=== PATIENT | male | born 1935 | race Caucasian/White ===

== ENCOUNTER 2016-11-06 18:07 | Inpatient (IN) | payer MEDICARE, BC ==
[~2016-11-06 18:07] MED LIST: ISOVUE-370 76%-LOCM 1 ML ONE
[2016-11-06 18:45] LABS: #Basophils 0.1 thou/uL (0.0-0.2); #Eosinphils 0.1 thou/uL (0.0-0.7); #Lymphocytes 0.9 thou/uL (1.20-3.40); #Monocytes 0.4 thou/uL (0.11-0.59); #Neutrophils 3.1 thou/uL (1.40-6.50); %Basophils 1.1 % (0.0-1.0); %Eosinophils 2.8 % (0.0-10.0); %Lymphocytes 18.9 % (21.0-51.0); %Monocytes 9.7 % (0.0-10.0); Hematocrit 23.6 % (42.0-52.0); Red Blood Cell (RBC) Count 2.76 mill/uL (4.70-6.10); White Blood Cell (WBC) Count 4.6 thou/uL (4.8-10.8)
[2016-11-06 19:09] LABS: ALT (SGPT) 12 U/L (8-55); AST (SGOT) 15 U/L (5-34); Alkaline Phosphatase 77 U/L (40-150); Anion Gap 12 mmol/L (10-20); BUN (Urea Nitrogen) 24 mg/dL (8.4-25.7); Bilirubin, Total 0.3 mg/dL (0.2-1.2); Calc. Creatinine Clearance 0 mL/min (70-130); Calcium 9.1 mg/dL (7.8-10.44); Carbon Dioxide 25 mmol/L (23-31); Chloride 106 mmol/L (98-107); Estimated GFR-MDRD 56; Globulin 2.8 g/dL (2.4-3.5); Protein, Total 6.6 g/dL (5.8-8.1)
[2016-11-06 19:11] LABS: Troponin I Less than 0.010 ng/mL (< 0.028)
--- NOTE | 2016-11-06 20:21 | RAD ---
EXAM: ONE VIEW CHEST 11/06/16 COMPARISON: 05/05/16 HISTORY: Dyspnea and weakness. FINDINGS: Portable AP chest demonstrates sternotomy wires and hiatal hernia. Normal cardiac silhouette. Pulmon sandee vessels and hilum are normal. Costophrenic angles are clear. No masses or consolidation. No pneu mothorax or osseous abnormalities. IMPRESSION: 1. Stable hiatal hernia. 2. No acute cardiopulmonary process. POS: [facility]
--- NOTE | 2016-11-06 23:31 | PDOC.EVN ---
Event Note - Event Note Event Note: [id number] H&P DICTATED 1. Symptomatic anemia 2. H/O HTN 3. H/O Liver lesion 4. H/O CAD Plan: see orders
[2016-11-06] MEDS ORDERED: Ondansetron HCl/PF 4 MG/2 ML Vial IVP PRN (23:32)
[2016-11-06] MEDS ORDERED: HYDROcodone/Acetaminophen 7.5/325 mg Tablet PO PRN (23:32)
[2016-11-06] MEDS ORDERED: Acetaminophen 325 MG TAB PO PRN (23:32)
--- NOTE | 2016-11-07 00:19 | CT ---
EXAM: ABDOMEN CT WITH CONTRAST PELVIC CT WITH CONTRAST 11/06/16 HISTORY: Evaluate for liver lesion and hematoma. Weakness and shortness of breath times a couple of days. Yamila abdalla was admitted to hospital and put on antibiotics. Patient told of a spot on liver where a biopsy is scheduled on 11/16/16. COMPARISON: None. TECHNIQUE: Abdomen and pelvic CT are performed with intravenous contrast. Enteric contrast was not administered . Coronal reformatted image are submitted for interpretation. FINDINGS: ABDOMEN CT: Scarring and atelectasis in the lung bases. There is evidence of coronary calcifications. Heart size is normal. No significant pericardial fluid. The descending thoracic aorta and abdominal aorta have an overall normal caliber. No periaortic fat stranding. Symmetric attenuation of the psoas muscle. Intra and extrahepatic portal vein is patent. Spleen, pancreas and adrenal glands have appropriate enhancement. There is no evidence of an abnormal enhancing mass in the liver. No perihepatic fluid. The gallbladder is contracted due to the nonfasting state. There is an exophytic hyperdensity emanating from the posterior right renal cortex with attenuation coefficient of 14 Hounsfield units suggesting a 2.1 cm cyst. Bilaterally, no hydronephrosis, nephrol ithiasis or perinephric fat stranding. Bilateral ureters have a normal caliber. No hydroureter, donovan ureteral fat stranding or ureterolithiasis. No gastrohepatic, retrocrural or periportal lymphadenopa thy. No mesenteric mass, lymphadenopathy, free air, or free fluid. Limited evaluation of the alimentary canal due to lack of oral contrast. Moderate hiatal hernia is n oted. Multiple normal caliber small bowel loops. The ileocecal junction is normal. Fecalization of t he distal and terminal ileum likely due to incompetent ileocecal valve. No evidence of bowel obstruc tion. Appendix is not appreciated. No inflammation at the cecal apex. There is fecal material in a n ondistended, nondilated colon. PELVIC CT: Mild mucosal prominence of the urinary bladder likely due to inadequate distention. No pelvic mass, lymphadenopathy, free air or free fluid. There are no osteoblastic or osteolytic lesions. Vacuum disc phenomenon in multiple levels is noted. There is rightward curvature of the lumbar spine . IMPRESSION: 1. There are no abnormal enhancement in the liver. 2. Moderate hiatal hernia. POS: [facility]
[2016-11-07 01:17] VITALS: BMI 24.7
--- NOTE | 2016-11-07 07:06 | HP ---
DATE OF ADMISSION: 11/06/2016 CHIEF COMPLAINT: Fatigue and weakness. HISTORY OF PRESENT ILLNESS: The patient is 81 years old male with past medical history of hypertens ion, coronary artery disease, angina, hyperlipidemia, now came to the ER complaining of fatigue. Th e patient states for the past few weeks he is feeling fatigue for the last 1 week the fatigue got wo rse, he gets short of breath even with minimal exertion, complains of some chest pain that is interm ittent, but he has angina. Denies any fever, denies any chills, denies any nausea, denies any vomit ing. Complains of some lightheadedness also. Denies passing out. Today the symptoms got worse. B ecause of that he came to the ER. Denies any palpitations, denies any cough, denies any sputum prod uction. PAST MEDICAL HISTORY: As per HPI. PAST SURGICAL HISTORY: CABG. The patient has liver nodules, so he is currently being worked up, he scheduled for a biopsy in November. MEDICATIONS: Reviewed. FAMILY HISTORY: Denies any heart problems. REVIEW OF SYSTEMS: Constitutional: Denies any fever, denies any chills. Eyes: Denies any vision problems. Ears: Denies any hearing loss. Neck: Denies any neck pain. Cardiovascular system: Po sitive for chest pain. Respiratory system: Positive for dyspnea. Integumentary: Denies any rash. Musculoskeletal: Denies any joint deformities. Cranial nerve system: Denies syncope, denies lig htheadedness. Psychiatric: Denies depression or anxiety. All other review of systems are reviewed and are negative. PHYSICAL EXAMINATION: CONSTITUTIONAL/VITAL SIGNS: At the time of H and P performed, blood pressure is 140/76, afebrile, r espiratory rate 18, pulse ox 97%. GENERAL APPEARANCE: The patient appears tired. HEENT: Anterior naris patent. Hearing normal. Teeth intact. Tongue is moist. NECK: Supple. No JVD. CARDIOVASCULAR SYSTEM: S1, S2 present. Regular rate and rhythm, no murmurs, no rubs, no gallops. RESPIRATORY SYSTEM: No wheezes, no rhonchi. Breath sounds bilaterally. GASTROINTESTINAL: Abdomen is soft, nontender, no guarding, no organomegaly, no masses felt. MUSCULOSKELETAL: No edema. CRANIAL NERVE SYSTEM: Awake, follows commands. Strength intact, sensory intact. PSYCHIATRIC: Mood appropriate at this time. GENITOURINARY: No suprapubic tenderness. No angle tenderness. INTEGUMENTARY: No rashes seen. LABORATORY DATA: At the time of H and P performed, white count 4.6, hemoglobin 7.6, platelet count is 276. Sodium 139, potassium 4.4, chloride 106, CO2 of 25, BUN of 54, creatinine 1.24. Occult blo od is negative per ED physician. The patient's previous hemoglobin level was around 13.5 on 05/2016 . ASSESSMENT AND PLAN: The patient is 81 years old male. 1. Acute anemia, etiology unclear. We will go ahead and type and cross 1 unit of blood transfusion as the patient is currently having symptomatic anemia. We will monitor the patient closely. We wi ll check CBC in a.m. We will check iron studies also. 2. History of liver lesions, currently being worked up as an outpatient. We will go ahead and cons ult Hematology/Oncology to evaluate the patient. We will do CT abdomen and pelvis to evaluate the l esion. 3. History of hypertension. Continue blood pressure medications. 4. History of angina. Continue Ranexa. 5. History of hyperlipidemia. Continue statins. The case was discussed in detail with the patient. The patient is FULL CODE.
[2016-11-07 08:16] LABS: #Eosinphils 0.1 thou/uL (0.0-0.7); #Lymphocytes 0.8 thou/uL (1.20-3.40); #Monocytes 0.4 thou/uL (0.11-0.59); #Neutrophils 2.8 thou/uL (1.40-6.50); %Basophils 0.1 % (0.0-1.0); %Eosinophils 2.8 % (0.0-10.0); %Lymphocytes 19.2 % (21.0-51.0); %Monocytes 8.7 % (0.0-10.0); Hematocrit 24.8 % (42.0-52.0); Mean Platelet Volume 5.9 fL (7.4-10.4); Red Blood Cell (RBC) Count 2.87 mill/uL (4.70-6.10)
[2016-11-07 08:37] LABS: Anion Gap 8 mmol/L (10-20); BUN (Urea Nitrogen) 22 mg/dL (8.4-25.7); Calc. Creatinine Clearance 58 mL/min (70-130); Calcium 8.8 mg/dL (7.8-10.44); Carbon Dioxide 27 mmol/L (23-31); Chloride 107 mmol/L (98-107); Estimated GFR-MDRD 64
--- NOTE | 2016-11-07 10:38 | PDOC.PN ---
- Subjective Encounter Start Date: 11/07/16 Encounter Start Time: 10:34 Mr. Tipton is complaining of feeling tired and weak. He says the symptoms have been progressive of the past few months, with some minimal waxing and waning. He feels only slightly better since the transfusion. He also says he was recently hospitalized for several days due to what sounds like Fever of Unknown Origin. He says he saw Dr. Trevizo, and he ran " a bunch of tests" and these were negative. He was told he a small " spot on his liver". He sees Dr. Bowles, and the plan was for him to have a biopsy later this month. He also says he has had several Colonoscopies in the past which were negative. - Objective MAR Reviewed: Yes Vital Signs & Weight: Vital Signs (12 hours) Temp Pulse Pulse Resp BP BP Pulse Ox 11/07/16 08:50 97.7 F 82 16 11/07/16 07:25 97.7 F 82 16 151/70 H 97 11/07/16 06:04 97.8 F 77 16 159/82 H 95 11/07/16 02:45 97.8 F 79 16 141/85 H 95 11/07/16 02:19 97.9 F 93 16 126/72 96 11/07/16 01:00 97.8 F 89 16 97 11/07/16 00:00 97.8 F 89 18 141/77 H 97 Weight Weight 172 lb 6.4 oz I&O: 11/06/16 11/07/16 11/08/16 06:59 06:59 06:59 Intake Total 990 Output Total 380 Balance 610 Result Diagrams: 11/07/16 08:00 11/07/16 07:59 Phys Exam - Physical Examination HEENT: PERRLA Respiratory: no wheezing, no rales, no rhonchi, clear to auscultation bilateral Cardiovascular: RRR, no significant murmur, no rub Gastrointestinal: soft, non-tender, positive bowel sounds Musculoskeletal: no edema Dx/Plan (1) Normochromic anemia Code(s): D64.9 - ANEMIA, UNSPECIFIED Status: Acute (2) Generalized weakness Code(s): R53.1 - WEAKNESS Status: Acute (3) CAD (coronary artery disease) Code(s): I25.10 - ATHSCL HEART DISEASE OF [place] CORONARY ARTERY W/O ANG PCTRS Status: Chronic (4) Chronic low back pain Code(s): M54.5 - LOW BACK PAIN; G89.29 - OTHER CHRONIC PAIN Status: Chronic (5) Hypertension Code(s): I10 - ESSENTIAL (PRIMARY) HYPERTENSION Status: Chronic - Plan * Generalized fatigue- ? etiology- may be related to anemia * Normocytic Anemia- will check lab to help identify the cause, and await Hematology evaluation * He has a history of CAD- will therefore also check an Echo * HTN- blood pressure is stable.
[2016-11-07 10:45] LABS: IRF 0.581 Ratio (0.163-0.362); Reticulocyte Count 4.8 % (0.5-1.5)
[2016-11-07 11:00] LABS: Iron 48 ug/dL (65-175); LDH 152 U/L (125-220)
--- NOTE | 2016-11-07 17:57 | CON ---
DATE OF CONSULTATION: 11/07/2016 HISTORY OF PRESENT ILLNESS: The patient is an 81-year-old male patient of Dr. Bowles's who came into the hospital because of increasing shortness of breath and weakness. He denies any bleedi ng, denies any abdominal pain, denies any nausea, vomiting. Denies any melena or hematochezia. He has been iron deficient in the past and has undergone workup by Dr. Bowles in the past with no obvious etiology found. He has been on iron in the past, but has not been on iron over the last several mo nths. He was restarted on his iron approximately 3 days ago. He has also got unknown liver issue a nd was scheduled to undergo a liver biopsy on 11/16/2016. Patient denies any NSAID use. Denies any blood thinners. He has had 2 hospitalizations for fever and pancytopenia. The etiology of the fev er was never found. He has been seen and followed by Dr. Trevizo as well. He has had a fibrosis test , which showed an F3 level. PAST MEDICAL HISTORY: Includes coronary artery disease, hyperlipidemia, hypertension, history of my ocardial infarction, asthma. PAST SURGICAL HISTORY: Includes an appendectomy, cardiac catheterization, cataract surgery, upper a nd lower endoscopy, the last being in 05/2012, noted were gastric polyps or hiatal hernia, colon sadiq yp which was a tubular adenoma and diverticula, coronary artery bypass. ALLERGIES: Include CODEINE. SOCIAL HISTORY: He will uses alcohol rarely. Does not smoke. FAMILY HISTORY: Negative for GI or liver disease. REVIEW OF SYSTEMS: Constitutional: No fever or chills. No recent fever or chills. No weight loss . Eyes: No blurred vision, double vision. ENT: No sore throat or earaches. Cardiovascular: No chest pain or palpitations. Pulmonary: Positive for dyspnea on exertion. Negative for cough. Neg ative for wheezes. GI: See above. : No hematuria or dysuria. Musculoskeletal: Positive for g eneralized weakness. Negative for muscle pain or joint pain. Skin: No rashes. Neurologic: No nu mbness or seizure activity. PHYSICAL EXAMINATION: VITAL SIGNS: Temperature 97.8, pulse 94, respiratory rate 20, blood pressure 162/84. HEENT: Unremarkable. NECK: Supple. CHEST: Clear. CARDIOVASCULAR: Regular rate and rhythm. ABDOMEN: Soft, nontender, without organomegaly or masses. Bowel sounds present and normoactive. RECTAL: Deferred. EXTREMITIES: Normal. NEUROLOGIC: Nonfocal. LABORATORY DATA: Shows on admission, white blood cell count of 4.6, hemoglobin of 7.6, hematocrit o f 23.6, platelet count is 276, retic count is 4.8. Chemistry on admission were all normal. PSA was 7.67. IMAGING: Abdominal and pelvic CT were performed. This showed a moderate hiatal hernia and mild muc osal, prominence of the urinary bladder felt likely due to inadequate filling. ASSESSMENT: 1. Severe symptomatic iron deficiency anemia. 2. 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 3. History of colon polyps. 4. Hiatal hernia. 5. Coronary artery disease. 6. Hyperlipidemia. RECOMMENDATIONS: 1. EGD and colonoscopy. 2. May proceed with liver biopsy while the patient is here. 3. Transfuse.
[2016-11-07] MEDS ORDERED: GoLYTELY 4,000 ml Bottle PO SCH (18:00)
--- NOTE | 2016-11-07 19:58 | CON ---
DATE OF CONSULTATION: 11/07/2016 REASON FOR CONSULTATION: Anemia. HISTORY: This is an 81-year-old male who has been feeling fatigued for several months. Gini munoz was hospitalized for this symptoms on 11/06/2016 and found to be anemic, the reason for this consu ltation. He denies bleeding from any site. He also denies black stool before he has started on iro n tablets a few days ago. The patient did not have colonoscopy in the recent past. Looking into Ahead, the patient's hemoglobin was 11.5 grams on 05/09/2016. At that time, his MCV was 98.7 and platelet count was 108. WBC, at that time, was 3300, today his WBC is 4000, hemoglobi n 8 grams, and platelet count 216,000. MCV 86.2. Differential shows 69.3% neutrophils and 19.2% ly mphocytes. Retic count is 4.8%. The patient was hospitalized in May for fever. The culture stud ies were negative. No etiology of fever was found and he was treated empirically with antibiotics. During the past month, patient denies any fevers. He had lost some weight while he was in the hosp ital. More recently, he has been gaining weight. He denies any night sweats during the past 2-3 mo nths. The patient is also being investigated for abnormal liver texture on ultrasound. He was evaluated b eugenia Bowles who has scheduled a liver biopsy on 11/16/2016. PAST MEDICAL HISTORY: Positive for hypertension, coronary artery disease, angina, and dyslipidemia. PAST SURGICAL HISTORY: Include coronary artery bypass graft surgery. PERSONAL, FAMILY, AND SOCIAL HISTORY: The patient is single. He does not have any children. He li ves with a 16-year-old who is not related to him by blood. The patient takes care of him. REVIEW OF SYSTEMS: As above. He denies bone pain, unequal extremity weakness, headache, diplopia, depression, and lightheadedness. PHYSICAL EXAMINATION: GENERAL: The patient appears younger than his chronologic age of 81. He is alert and oriented. VITAL SIGNS: Temperature 97.3, pulse 74, respirations 16, blood pressure 144/92, oxygen saturation 95%. HEENT: Unremarkable. LYMPHATICS: There is no peripheral lymphadenopathy in cervical, supraclavicular, axillary, or ingui nal area. CHEST: Clear to percussion and auscultation. HEART: Regular rhythm. S1 and S2. ABDOMEN: Soft, without hepatosplenomegaly. Bowel sounds normal. There is no tenderness. EXTREMITIES: Without pedal edema. LABORATORY AND X-RAY FINDINGS: CBC as per history of present illness. Chemistry profile shows norm al electrolytes, BUN, and creatinine. Liver enzymes within normal limits. Total bilirubin of 0.3. Total protein is 6.6 with globulin of 2.8. Vitamin B12 of 351. The patient had a PSA in 2011 whic h was 5.7. One stool is negative for occult blood. Chest x-ray negative except for stable hiatal h ernia. CT scan of abdomen and pelvis with intravenous contrast is essentially negative. ASSESSMENT AND RECOMMENDATIONS: This patient has anemia of recent onset. His ferritin is 24.62 wit h low iron of 48 and TIBC of 390. LDH is not elevated at 152. The iron studies favor iron deficien cy. Low LDH and normal bilirubin will go against hemolysis. Additional stools should be tested for occult blood. I will also consult Gastroenterology for consideration of colonoscopy and upper taco rointestinal endoscopy to rule out gastrointestinal bleed. Because he had elevated PSA in the past, I have ordered another PSA. Liver biopsy will be done while he is in the hospital, although I doub t if outcome of liver biopsy will give us any clues about anemia. Thanks very much for asking me to participate in this patient's care.
[2016-11-08 05:14] LABS: #Eosinphils 0.1 thou/uL (0.0-0.7); #Lymphocytes 0.9 thou/uL (1.20-3.40); #Monocytes 0.5 thou/uL (0.11-0.59); #Neutrophils 2.9 thou/uL (1.40-6.50); %Basophils 0.2 % (0.0-1.0); %Eosinophils 3.2 % (0.0-10.0); %Lymphocytes 20.2 % (21.0-51.0); %Monocytes 10.8 % (0.0-10.0); Hematocrit 24.9 % (42.0-52.0); Red Blood Cell (RBC) Count 2.88 mill/uL (4.70-6.10); White Blood Cell (WBC) Count 4.5 thou/uL (4.8-10.8)
[2016-11-08] MEDS ORDERED: Propofol 200 MG/20 ML VIAL ONE (09:15)
[2016-11-08] MEDS ORDERED: Lidocaine 2% PF 10 ML AMP (For Epidural Use) ONE (09:15)
[2016-11-08] MEDS ORDERED: Promethazine HCl 25 MG/ML VIAL SLOW IVP PRN (09:44)
[2016-11-08] MEDS ORDERED: Ondansetron HCl/PF 4 MG/2 ML Vial IVP PRN (09:44)
[2016-11-08] MEDS ORDERED: Promethazine HCl 25 MG/ML VIAL IM PRN (09:44)
--- NOTE | 2016-11-08 09:58 | OP ---
DATE OF PROCEDURE: 11/08/2016 SURGEON: Harjit Tidwell M.D. PREOPERATIVE DIAGNOSIS: Iron deficiency anemia. PROCEDURE IN DETAIL: After informed consent was obtained, the patient was placed in the left latera l decubitus position. Anesthesia was administered per the Anesthesia Department. Forward-viewing e ndoscope was inserted into the esophagus under direct visualization with ease and passed to the seco nd portion of the duodenum with ease. The second portion of the duodenum was normal. Random biopsi es were taken from the second portion of the duodenum. In the duodenal bulb a 6 mm ulcer was noted with a clean white base. No active bleeding or visible vessel. The pylorus, antrum, body, fundus, and cardia were normal except for a large hiatal hernia. Within the hiatal hernia waste was Mohamud 's lesions. Biopsies were taken of this area. Retroflexion in the stomach was otherwise normal. T he esophagus was normal throughout. ASSESSMENT: 1. Large hiatal hernia with Mohamud's lesions - probable source of the patient's iron deficiency an emia. 2. Duodenal ulcer. 3. Otherwise normal esophagogastroduodenoscopy. RECOMMENDATION: 1. Await histopathology. 2. Proton-pump inhibitor. 3. Iron replacement therapy. 4. Proceed with liver biopsy tomorrow. 5. Proceed with colonoscopy. PROCEDURE: After informed consent was obtained, the patient was placed in the left lateral decubitu s position. Anesthesia was administered per the Anesthesia Department. Forward-viewing endoscope w as inserted into the rectum after perianal inspection and rectal exam were normal and passed to the cecum with ease. The cecum, ileocecal valve, and appendiceal orifice were normal. The prep was exc ellent. The ascending, transverse, descending, sigmoid and rectum were normal except for left-sided diverticulosis coli. Retroflexion in the rectum showed moderate internal hemorrhoids. ASSESSMENT: 1. Left-sided diverticulosis coli. 2. Moderate internal hemorrhoids. 3. Otherwise normal colonoscopy. RECOMMENDATIONS: No repeat colonoscopy secondary to age.
--- NOTE | 2016-11-08 14:49 | PDOC.PN ---
- Subjective Encounter Start Date: 11/08/16 Encounter Start Time: 14:46 Mr. Tipton does not have any complaints. - Objective MAR Reviewed: Yes Vital Signs & Weight: Vital Signs (12 hours) Temp Pulse Resp BP BP Pulse Ox 11/08/16 10:25 97.7 F 67 20 132/61 98 11/08/16 07:16 98.6 F 87 18 150/72 H 96 11/08/16 04:00 98.3 F 78 16 138/65 93 L Weight Weight 172 lb 6.4 oz I&O: 11/07/16 11/08/16 11/09/16 06:59 06:59 06:59 Intake Total 990 650 Output Total 380 Balance 610 650 Result Diagrams: 11/08/16 04:17 11/07/16 07:59 Phys Exam - Physical Examination HEENT: PERRLA Respiratory: no wheezing, no rales, no rhonchi, clear to auscultation bilateral Cardiovascular: RRR, no significant murmur Gastrointestinal: soft, non-tender, positive bowel sounds Musculoskeletal: no edema Dx/Plan (1) Normochromic anemia Code(s): D64.9 - ANEMIA, UNSPECIFIED Status: Acute (2) Generalized weakness Code(s): R53.1 - WEAKNESS Status: Acute (3) CAD (coronary artery disease) Code(s): I25.10 - ATHSCL HEART DISEASE OF [place] CORONARY ARTERY W/O ANG PCTRS Status: Chronic (4) Chronic low back pain Code(s): M54.5 - LOW BACK PAIN; G89.29 - OTHER CHRONIC PAIN Status: Chronic (5) Hypertension Code(s): I10 - ESSENTIAL (PRIMARY) HYPERTENSION Status: Chronic - Plan * Iron Deficiency Anemia- EGD and Colonoscopy results noted * Plan is for Liver Biopsy tomorrow * Will start iron therapy * PT/OT * CAD- stable- Echo results noted. * HTN- blood pressure is stable
[2016-11-08] MEDS: Ferrous Sulfate 325 MG TAB PO SCH (17:30)
[2016-11-09 07:06] LABS: PTT 29.9 SEC (22.9-36.1); Prothrombin Time 14.4 SEC (12.0-14.7)
[2016-11-09] MEDS ORDERED: Sodium Bicarbonate 2.4 MEQ/5 ML ONE (10:37)
[2016-11-09] MEDS ORDERED: Fentanyl 100 MCG/2 ML VIAL ONE (10:38)
[2016-11-09] MEDS ORDERED: Midazolam HCl 2 mg/2 ml Vial ONE (10:38)
[2016-11-09] MEDS ORDERED: Sodium Chloride 0.9% 30 ML ONE (10:59)
[2016-11-09] MEDS ORDERED: Lidocaine 1% PF 5 ML VIAL ONE (11:05)
--- NOTE | 2016-11-09 13:49 | ULT ---
ULTRASOUND GUIDED RANDOM RIGHT HEPATIC LOBE BIOPSY: Date: 11-09-16 History: Brant. Possible cirrhosis. Technique: The procedure, including risks and complications, were explained to the patient and informed consent was obtained. Patient was placed on the sonography table in supine position. Limited sonographic ev aluation of the liver was performed. An area in the mid axillary line, right upper quadrant, was mar ked and then meticulously prepped and draped in the usual sterile fashion. Conscious sedation was pe rformed with intravenous administration of Fentanyl and Versed. Skin and subcutaneous tissues were infiltrated with buffered 1% Lidocaine for local anesthesia at th e intended puncture site. Small skin incision was made. Utilizing concurrent real-time ultrasound gu idance, a 17 guide needle was advanced into the most peripheral aspect of the right hepatic lobe. Ut ilizing coaxial technique and concurrent real-time ultrasound guidance, a single 18 gauge core needl e biopsy specimen was obtained. Inter stylet was replaced. After approximately five minutes the inte r stylet was further advanced and the needle was removed. Hemostatis was achieved with direct pressu re for approximately 10 minutes. Post biopsy images demonstrate no perihepatic fluid collection or f indings to suggest a hematoma at site of biopsy. Patient tolerated the procedure well and without im mediate complication. Patient was transported to his hospital room in stable condition. IMPRESSION: Technically successful ultrasound guided random right hepatic lobe biopsy. A single 18 gauge core ne edle biopsy specimen was obtained. Pathology is pending. POS: [facility]
--- NOTE | 2016-11-09 14:30 | PRG ---
DATE OF SERVICE: 11/09/2016 SUBJECTIVE: The patient is feeling well, he has had a liver biopsy today. OBJECTIVE: VITAL SIGNS: Temperature 98.1, pulse 87, respiratory rate 18, blood pressure 129/74. CHEST: Clear. CARDIOVASCULAR: Regular rate and rhythm. ABDOMEN: Benign. LABORATORY DATA: Shows hemoglobin 8.1, hematocrit 24.9. Chemistries show a PSA 7.76. ASSESSMENT: 1. Iron deficiency anemia secondary to hiatal hernia and Mohamud's lesions. 2. Duodenal ulcer. 3. Left-sided diverticulosis coli. 4. Internal hemorrhoids. 5. Possible cirrhosis. RECOMMENDATIONS: 1. Await liver biopsy results. 2. Await histopathology. 3. Iron replacement therapy. 4. Stable from GI standpoint for discharge.
--- NOTE | 2016-11-09 14:33 | PDOC.PN ---
- Subjective Encounter Start Date: 11/09/16 Encounter Start Time: 14:29 Mr. Tipton complains of not feeling much better today than when he first came in. He still feels weak. - Objective MAR Reviewed: Yes Vital Signs & Weight: Vital Signs (12 hours) Temp Pulse Resp BP BP BP Pulse Ox 11/09/16 13:24 98.1 F 87 18 129/74 94 L 11/09/16 12:00 98.3 F 82 18 93 L 11/09/16 11:50 98.3 F 76 16 156/78 H 93 L 11/09/16 08:00 98.3 F 82 18 152/93 H 95 11/09/16 03:58 97.7 F 87 20 160/93 H 92 L I&O: 11/08/16 11/09/16 11/10/16 06:59 06:59 06:59 Intake Total 450 Balance 450 Result Diagrams: 11/08/16 04:17 11/07/16 07:59 Phys Exam - Physical Examination HEENT: PERRLA Respiratory: no wheezing, no rales, no rhonchi, clear to auscultation bilateral Cardiovascular: RRR, no significant murmur Gastrointestinal: soft, non-tender, positive bowel sounds Musculoskeletal: no edema Dx/Plan (1) Normochromic anemia Code(s): D64.9 - ANEMIA, UNSPECIFIED Status: Acute (2) Generalized weakness Code(s): R53.1 - WEAKNESS Status: Acute (3) CAD (coronary artery disease) Code(s): I25.10 - ATHSCL HEART DISEASE OF [place] CORONARY ARTERY W/O ANG PCTRS Status: Chronic (4) Chronic low back pain Code(s): M54.5 - LOW BACK PAIN; G89.29 - OTHER CHRONIC PAIN Status: Chronic (5) Hypertension Code(s): I10 - ESSENTIAL (PRIMARY) HYPERTENSION Status: Chronic - Plan * Iron Deficiency Anemia- discussed with Dr. Martínez- will give an IV infusion of iron. There is some concern that the anemia may be due to more than just iron deficiency. He will likely need continued outpatient Hematology follow-up * I offer PT- and Rehab, but the patient says this doesn't work for him, due to his back problems- will therefore cancel PT consult * HTN- blood pressure is variable, but otherwise ok * CAD- stable * Hopefully home tomorrow .
[2016-11-09] MEDS: Ferrous Sulfate 325 MG TAB PO SCH ×2 (15:37→16:02)
[2016-11-10 05:40] LABS: #Eosinphils 0.1 thou/uL (0.0-0.7); #Lymphocytes 0.7 thou/uL (1.20-3.40); #Monocytes 0.5 thou/uL (0.11-0.59); %Basophils 0.4 % (0.0-1.0); %Eosinophils 2.4 % (0.0-10.0); %Lymphocytes 17.1 % (21.0-51.0); %Monocytes 10.4 % (0.0-10.0); Hematocrit 27.5 % (42.0-52.0); Red Blood Cell (RBC) Count 3.14 mill/uL (4.70-6.10); White Blood Cell (WBC) Count 4.3 thou/uL (4.8-10.8)
[2016-11-10] MEDS: Ferrous Sulfate 325 MG TAB PO SCH (08:29)
--- NOTE | 2016-11-10 10:01 | PDOC.PN ---
- Subjective Encounter Start Date: 11/10/16 Encounter Start Time: 07:45 -: old records requested/rev Patient seen and examined. No new complaints. No overnight events - Objective MAR Reviewed: Yes Vital Signs & Weight: Vital Signs (12 hours) Temp Pulse Resp BP Pulse Ox 11/10/16 04:00 98.3 F 84 12 128/68 96 11/10/16 00:00 98.1 F 82 16 128/61 95 I&O: 11/09/16 11/10/16 11/11/16 06:59 06:59 06:59 Intake Total 450 600 Balance 450 600 Result Diagrams: 11/10/16 05:03 11/07/16 07:59 Phys Exam - Physical Examination Constitutional: NAD HEENT: PERRLA, moist MMs, sclera anicteric Neck: no JVD, supple Respiratory: no wheezing, no rales, no rhonchi Cardiovascular: RRR, no significant murmur, no rub Gastrointestinal: soft, non-tender, no distention Musculoskeletal: no edema, pulses present Neurological: non-focal, normal sensation, moves all 4 limbs Psychiatric: normal affect, A&O x 3 Skin: no rash, normal turgor Dx/Plan (1) Generalized weakness Code(s): R53.1 - WEAKNESS Status: Acute (2) Normochromic anemia Code(s): D64.9 - ANEMIA, UNSPECIFIED Status: Acute (3) CAD (coronary artery disease) Code(s): I25.10 - ATHSCL HEART DISEASE OF [place] CORONARY ARTERY W/O ANG PCTRS Status: Chronic (4) Chronic low back pain Code(s): M54.5 - LOW BACK PAIN; G89.29 - OTHER CHRONIC PAIN Status: Chronic (5) Dyslipidemia Code(s): E78.5 - HYPERLIPIDEMIA, UNSPECIFIED Status: Chronic (6) Hypertension Code(s): I10 - ESSENTIAL (PRIMARY) HYPERTENSION Status: Chronic - Plan cont current plan of care * medication reviewed as below * symptomatic treatment * see discharge summery * protonix and feso4 on discharge * follow up with GI and hematology. Review of Systems - Review of Systems ENT: negative: Ear Pain, Ear Discharge, Nose Pain, Nose Discharge, Nose Congestion, Mouth Pain, Mouth Swelling, Throat Pain, Throat Swelling, Other Respiratory: negative: Cough, Dry, Shortness of Breath, Hemoptysis, SOB with Excertion, Pleuritic Pain, Sputum, Wheezing Cardiovascular: negative: Chest Pain, Palpitations, Orthopnea, Paroxysmal Noc. Dyspnea, Edema, Light Headedness, Other Gastrointestinal: negative: Nausea, Vomiting, Abdominal Pain, Diarrhea, Constipation, Melena, Hematochezia, Other Genitourinary: negative: Dysuria, Frequency, Incontinence, Hematuria, Retention , Other Musculoskeletal: negative: Neck Pain, Shoulder Pain, Arm Pain, Back Pain, Hand Pain, Leg Pain, Foot Pain, Other - Medications/Allergies Allergies/Adverse Reactions: Allergies Allergy/AdvReac Type Severity Reaction Status Date / Time codeine Allergy "makes me Verified 11/07/16 01:14 feel weird in my temples" Medications: Current Medications Acetaminophen (Tylenol) 650 mg PO Q4H PRN PRN Reason: Headache/Fever or Pain Hydrocodone Bitart/Acetaminophen ([place] 7.5/325) 1 tab PO Q4H PRN PRN Reason: Moderate Pain (4-6) Ferrous Sulfate (Feosol) 325 mg PO BID-[facility] Stop: 11/13/16 17:01 Last Admin: 11/10/16 08:29 Dose: 325 mg Ondansetron HCl (Zofran) 4 mg IVP Q6H PRN PRN Reason: Nausea/Vomiting Pantoprazole Sodium (Protonix) 40 mg PO DAILY [facility] Last Admin: 11/10/16 08:29 Dose: 40 mg Sodium Chloride (Flush - Normal Saline) 10 ml IVF PRN PRN PRN Reason: Saline Flush
[2016-11-10 11:09] VITALS: BP 144/77; TEMP 97.9
--- NOTE | 2016-11-10 11:12 | DIS ---
DATE OF ADMISSION: 11/08/2016 DATE OF DISCHARGE: 11/10/2016 PRIMARY CARE PHYSICIAN: Juan Ray M.D. DISCHARGE DISPOSITION: Home. PRIMARY DISCHARGE DIAGNOSES: 1. Generalized weakness due to anemia. 2. Anemia due to blood loss, status post 1 unit transfusion. 3. Status post liver biopsy. SECONDARY DISCHARGE DIAGNOSES: Coronary artery disease, chronic low back pain, hypertension, and dy slipidemia. PRIMARY PROCEDURES/OPERATIONS: 1. EGD was done and patient was found with large hiatal hernia with Mohamud lesion, duodenal ulcer. 2. Colonoscopy showed moderate internal hemorrhoid, left-sided diverticulosis. 3. Liver biopsy. RADIOLOGICAL INVESTIGATION: Chest x-ray on admission showed no acute cardiopulmonary process, stabl e hiatal hernia. Abdomen and pelvis CT scan showed moderate hiatal hernia without any acute process . Echocardiography showed normal EF and diastolic dysfunction. SIGNIFICANT LABORATORY DATA: Hemoglobin 8.9, WBC 4.3, platelet 241. INR 1.1. Sodium 138, creatini ne 1.10. TSH 7.67. LFT normal. Cardiac enzymes negative. Stool occult blood negative. DISCHARGE MEDICATIONS: Ferrous sulfate 325 mg p.o. b.i.d., Toprol-XL 12.5 mg p.o. at bedtime, Ashley nix 40 mg p.o. daily, Ranexa 500 mg p.o. b.i.d. CONTRAINDICATIONS: None. CODE STATUS: FULL CODE. INPATIENT CONSULTANTS: Dr. Martínez was following for anemia. Dr. Tidwell was consulted for symptomat ic anemia. TEST RESULTS PENDING ON DISCHARGE: None. Pathology report from the duodenal biopsy and gastric bio psy was unremarkable without any evidence of celiac sprue or H. pylori infection. DISCHARGE PLAN: Post hospital, the patient will follow up with Dr. Tidwell for followup on liver biops y report and Dr. Kristi Martínez for anemia. DISCHARGE PLAN: The patient will make appointment with primary care physician in 1 week. HOSPITAL COURSE: An 81-year-old male who was admitted by Dr. Booker on 11/06/2016. The patient w as admitted for generalized weakness. He was having anemia. The patient was initially admitted as observation status. His status to inpatient was changed on 11/08/2016. During this admission, Dr. Tidwell was consulted who did upper endoscopy on 11/08/2016. At the same time, the patient also had co lonoscopy. Upper endoscopy showed hiatal hernia with Mohamud lesion and colonoscopy showed internal hemorrhoids and diverticulosis. On 11/09/2016, patient had a liver biopsy under ultrasound [facility]. Pathology report is pending. The patient's hemoglobin and hematocrit remained stable. His echo cardiography showed diastolic dysfunction. His CT of the abdomen and pelvis was unremarkable. At this point, the patient is medically stable for discharge and he will follow up with Dr. Tidwell and Dr. Martínez for further treatment as an outpatient basis. Patient was seen and examined at [facility]. Please see my progress note from today for further details.
[2016-11-11 11:21] LABS: A/G Ratio 1.3 (0.7-1.7); Albumin 3.2 g/dL (2.9-4.4); Alpha 1 0.2 g/dL (0.0-0.4); Alpha 2 0.5 g/dL (0.4-1.0); Gamma 0.7 g/dL (0.4-1.8); Globulin, Total 2.4 g/dL (2.2-3.9); M-Spike Not Observed g/dL (Not Observed)
--- NOTE | 2016-11-13 12:17 | EKG ---
Test Reason : Blood Pressure : / mmHG Vent. Rate : 082 BPM Atrial Rate : 082 BPM P-R Int : 136 ms QRS Dur : 098 ms QT Int : 376 ms P-R-T Axes : 043 002 002 degrees QTc Int : 439 ms Normal sinus rhythm Nonspecific T wave abnormality Abnormal ECG No specific ST-T segment abnormalities Confirmed by SUSANA AVILES ([id number]), editorial clerk ROSALIE NICOLE ([id number]) on 11/13/2016 12:16:23 PM Referred By: Confirmed By:SUSANA AVILES
== END 2016-11-10 11:12 | disposition home or self-care (01) | DRG 812 ==
LOC: ERS 18:07 → SURG B 23:32 → OBSVTOIN 11-08 14:25
PROVIDERS: ADMIT Internal Medicine; ATTEND Internal Medicine
PROC: 30233N1 Transfusion of Nonautologous Red Blood Cells into Peripheral Vein, Percutaneous Approach (ICD-10-PCS; principal; 2016-11-08)
PROC: 0DB98ZX Excision of Duodenum, Via Natural or Artificial Opening Endoscopic, Diagnostic (ICD-10-PCS; 2016-11-08)
PROC: 0DB68ZX Excision of Stomach, Via Natural or Artificial Opening Endoscopic, Diagnostic (ICD-10-PCS; 2016-11-08)
PROC: 0DJD8ZZ Inspection of Lower Intestinal Tract, Via Natural or Artificial Opening Endoscopic (ICD-10-PCS; 2016-11-08)
PROC: 0FB13ZX Excision of Right Lobe Liver, Percutaneous Approach, Diagnostic (ICD-10-PCS; 2016-11-09)
DX: D62 Acute posthemorrhagic anemia (principal); K26.9 Duodenal ulcer, unspecified as acute or chronic, without hemorrhage or perforation; K44.9 Diaphragmatic hernia without obstruction or gangrene; I10 Essential (primary) hypertension; E78.5 Hyperlipidemia, unspecified; M54.5 Low back pain; K64.8 Other hemorrhoids; K57.30 Diverticulosis of large intestine without perforation or abscess without bleeding; Z86.010 Personal history of colon polyps; I25.119 Atherosclerotic heart disease of native coronary artery with unspecified angina pectoris; K76.9 Liver disease, unspecified; R97.20 Elevated prostate specific antigen [PSA]
CPT/HCPCS: 36415; 36430; 47000; 71010; 74177; 76942; 80048; 80053; 82274; 82553; 82728; 83010; 83540; 83550; 83615; 84165; 84484; 85025; 85046; 85610; 85730; 86850; 86900; 86901; 88305; 88307; 88312; 88313; 93005; 93306; 99152; 99153; A4216; G0103; J1750; J2001; J2250; J2704; J3010; P9016

== ENCOUNTER 2017-06-21 20:43 | Observation (INO) | payer MEDICARE, BC ==
[2017-06-21 21:05] LABS: #Eosinphils 0.1 thou/uL (0.0-0.7); #Lymphocytes 1.2 thou/uL (1.20-3.40); #Monocytes 0.4 thou/uL (0.11-0.59); #Neutrophils 2.8 thou/uL (1.40-6.50); %Basophils 0.4 % (0.0-1.0); %Eosinophils 2.7 % (0.0-10.0); %Lymphocytes 25.5 % (21.0-51.0); %Monocytes 8.8 % (0.0-10.0); %Neutrophils 62.6 % (42.0-75.0); Hemoglobin 14.6 g/dL (14.0-18.0); Mean Corpuscular HGB CONC 35.8 g/dL (32.0-36.0); Mean Corpuscular Hemoglobin 33.7 pg (27.0-31.0); Mean Corpuscular Volume 94.2 fl (80.0-94.0); Platelet Count 196 thou/uL (130-400); RBC Distribution Width 10.8 % (11.5-14.5); Red Blood Cell (RBC) Count 4.33 mill/uL (4.70-6.10); White Blood Cell (WBC) Count 4.5 thou/uL (4.8-10.8)
[2017-06-21 21:12] LABS: Prothrombin Time 13.4 SEC (12.0-14.7)
[2017-06-21 21:13] LABS: PTT 30.9 SEC (22.9-36.1)
--- NOTE | 2017-06-21 21:17 | CT ---
CT BRAIN WITHOUT CONTRAST: 06/21/17 HISTORY: Aphasia. COMPARISON: None. FINDINGS: There is extensive microangiopathic changes of the subcortical and deep white matter. There are bilat eral lacunar hypodensities. Some of these are age indeterminate as there are lack of comparison exami nations. No acute hemorrhage. No midline shift or mass effect. Moderate atrophy with ex vacuo dilatation of th e ventricular system and extra-axial CSF spaces. Calvarium is intact. The paranasal sinuses and masto ids are clear. IMPRESSION: 1. Mild atrophy with extensive microangiopathic changes. Given the lack of comparisons, some of these may be acute. If there is concern for acute infarction, MRI is recommended. 2. No hemorrhage. POS: [facility]
[2017-06-21 21:18] LABS: ALT (SGPT) 16 U/L (8-55); AST (SGOT) 16 U/L (5-34); Albumin 4.2 g/dL (3.4-4.8); Alkaline Phosphatase 89 U/L (40-150); Anion Gap 7 mmol/L (10-20); BUN (Urea Nitrogen) 17 mg/dL (8.4-25.7); Bilirubin, Total 0.6 mg/dL (0.2-1.2); CK (CPK) 68 U/L (30-200); Calc. Creatinine Clearance 0 mL/min (70-130); Calcium 9.5 mg/dL (7.8-10.44); Carbon Dioxide 29 mmol/L (23-31); Chloride 108 mmol/L (98-107); Estimated GFR-MDRD 67; Globulin 2.6 g/dL (2.4-3.5); Glucose 106 mg/dL (83-110); Potassium 4.2 mmol/L (3.5-5.1); Protein, Total 6.8 g/dL (5.8-8.1); Sodium 140 mmol/L (136-145)
[2017-06-21 21:22] LABS: CKMB 2.5 ng/mL (0-6.6); Troponin I Less than 0.010 ng/mL (< 0.028)
[2017-06-21] MEDS ORDERED: Aspirin 325 MG TAB ONE (21:47)
--- NOTE | 2017-06-21 21:58 | RAD ---
CHEST ONE VIEW: 06/21/17 HISTORY: Trouble speaking. Chest pain. COMPARISON: Radiograph 2017. FINDINGS: There is a round density projecting over the mid cardiac borderline likely sliding hiatal hernia. Etelvina gs are clear. No pneumothorax or effusion. No acute osseous abnormality. IMPRESSION: Hiatal hernia, otherwise no acute intrathoracic abnormality. POS: [facility]
[2017-06-22 02:56] VITALS: BMI 26.2
[2017-06-22] MEDS ORDERED: Ondansetron ODT 4 MG TAB PO PRN (07:28)
[2017-06-22] MEDS ORDERED: Acetaminophen 325 MG TAB PO PRN (07:28)
[2017-06-22] MEDS ORDERED: Ferrous Sulfate 325 MG TAB PO SCH (08:00)
--- NOTE | 2017-06-22 08:26 | HP ---
PRIMARY CARE PROVIDER: Dr. Juan Ray. Referred to [facility] by [facility] for probable TIA. HISTORY OF PRESENT ILLNESS: The patient known to me, had an episode for about 30-40 minutes when he was trying to use phone and could not form his words. It is now resolved. He had no visual disturba nce, no focal weakness, no focal paresthesias. He does currently have some mild dysarthric speech. He has no prior history of stroke or seizure disorder. He had no dizziness, no loss of consciousness . PAST MEDICAL HISTORY: Pertinent for hypertension, coronary artery disease, elevated cholesterol. CURRENT MEDICATIONS: Ferrous sulfate 325 mg a day, metoprolol 12.5 mg at bedtime, Protonix 40 mg a d ay, Ranexa 500 mg p.o. b.i.d. ALLERGIES: He states CODEINE makes him crazy in the head. PAST SURGICAL HISTORY: Coronary artery bypass graft about 10 years ago, L-spine surgery 3 years ago, arthroscopic surgery on the right knee in the past. FAMILY HISTORY: His mother at 98 of coronary artery disease. His father is , had a str [place]. SOCIAL HISTORY: Patient is single, quit smoking 12 years ago, drinks no alcohol. DISCUSSION: He is a FULL CODE. His sister, Kellie Galvan is his next of kin for surrogate bianka on m[place]. REVIEW OF SYSTEMS: General: No headaches, fever, or chills. Eyes: No double vision, blurred visio n, flashing lights. Ears, Nose, and Throat: No pain or drainage. No nasal bleeding. No trouble sw allowing. Cardiac: No chest pain, orthopnea, or paroxysmal nocturnal dyspnea. Respirations: No co ugh, wheezing, or asthma. Gastrointestinal: No nausea, vomiting, abdominal pain, diarrhea, constipa tion, melena. Genitourinary: No hematuria, dysuria. Musculoskeletal: Some pain in his left knee, aggravated with activity. No swelling in that joint. No muscle pains, no swelling in his legs. Reyna rologic: No strokes, seizures, or focal weakness. Psychiatric: No anxiety or depression. Skin: N o bruising, bleeding, or rash. Heme/Lymph: No tender or swollen lymph nodes in axilla, inguinal, or cervical area. PHYSICAL EXAMINATION: GENERAL: He is an alert, pleasant, cooperative gentleman. VITAL SIGNS: Temperature 98.2, pulse 62, respirations 16, blood pressure 175/95. HEENT: Examination of his head, eyes, ears, nose, and throat reveal pupils equal, round, and reactiv e to light. Extraocular movements are intact. Sclerae white. Tympanic membranes clear. Nose clear . Oral mucous membranes are wet. Tongue protrudes midline. NECK: No jugular venous distention, adenopathy, or thyromegaly. CHEST: Clear to auscultation and percussion. HEART: Regular rate and rhythm. First and second heart sounds are clear. There are no appreciated murmurs or gallops. ABDOMEN: Soft, bowel sounds are normal. There is no hepatosplenomegaly, no masses, no rebound, no b ruits. EXTREMITIES: Reveal no cyanosis, clubbing, or edema. PULSES: Carotid, radial, femoral, and dorsalis pedis pulses intact and symmetric. SKIN: Warm and dry without bruises or rash. HEME/LYMPH: Reveals no tender or swollen lymph nodes in axillae, inguinal, or cervical area. NEUROLOGICAL: Cranial nerves II-XII grossly intact. Deep tendon reflexes symmetric. Toes downgoing . Cklhtu-otzj-yzndzj symmetric. He does have some mild dysarthric speech. LABORATORY AND X-RAY FINDINGS: CT scan of the brain, reviewed by me, no acute intracranial abnormali ty. EKG: Regular sinus rhythm within normal limits, reviewed by me. Comp metabolic profile normal except for a chloride of 108. Cardiac enzymes normal x1. PT/INR patricia l. CBC, mild decreased white count of 4.5, hemoglobin 14.6, and platelet count 196,000. ADMITTING DIAGNOSES: 1. Transient ischemic attack/cerebrovascular accident. 2. Coronary artery disease, post-coronary artery bypass graft. 3. Hypertension. 4. Elevated cholesterol. 5. History of anemia. PLAN: 1. Aspirin has been given. 2. Stroke protocol will be followed. MRI has been ordered. Carotid ultrasound will be ordered. A lipid profile has been ordered.
[2017-06-22] MEDS ORDERED: Aspirin 325 MG TAB PO SCH (09:00)
[2017-06-22] MEDS ORDERED: Aspirin 325 mg Enteric Coated Tablet PO SCH (09:00)
[2017-06-22] MEDS ORDERED: Enoxaparin Sodium 40 MG/0.4 ML SYRINGE SC SCH (09:00)
--- NOTE | 2017-06-22 11:02 | ULT ---
CAROTID ULTRASOUND: HISTORY: Transient ischemic attack. COMPARISON: None. TECHNIQUE: Tidwell-scale, color-flow, Doppler imaging, and spectral wave-form analysis is performed of the carotid and vertebral arteries. FINDINGS: RIGHT CAROTID: No significant atherosclerotic disease. The peak systolic velocity of the common car otid artery is 71.0 cm per second. The peak systolic velocity of the internal carotid artery is 60.5 cm per second. Systolic ICA/CCA ratio is 0.9. LEFT CAROTID: No significant atherosclerotic disease. The peak systolic velocity of the common roa tid artery is 80.4 cm per second. The peak systolic velocity of the internal carotid artery is 85.1 cm per second. Systolic ICA/CCA ratio is 1.1. Antegrade flow in the bilateral vertebral arteries. IMPRESSION: No sonographic evidence of hemodynamically significant stenosis. POS: [facility]
[2017-06-22 11:40] VITALS: BP 114/69; TEMP 97.8
--- NOTE | 2017-06-22 14:02 | MRI ---
MRI BRAIN NONCONTRAST: HISTORY: 81-year-old male with TIA or acute stroke: Aphasia and dysarthria. FINDINGS: The ventricles are normal in size and configuration. There is no restricted diffusion, midline shift or any other mass effect, recent intraaxial hemorrhage, or extraaxial fluid collection. There are e xtensive, confluent T2-hyperintensities throughout the cerebral white matter consistent with moderate -severe chronic ischemic white matter changes due to microvascular atherosclerosis. There is diffuse brain parenchymal volume loss. IMPRESSION: 1. Involutional changes and moderate-severe chronic ischemic white matter changes. 2. Otherwise negative. jn POS: [facility]
--- NOTE | 2017-06-22 15:28 | DIS ---
DATE OF ADMISSION: 06/21/2017 DATE OF DISCHARGE: 06/22/2017 TRANSFER OF CARE PRIMARY CARE PROVIDER: Juan Ray M.D. DISCHARGE DISPOSITION: Home. FINAL DIAGNOSES: Transient ischemic attack, coronary artery disease, hypertension, dyslipidemia. DISCHARGE MEDICATIONS: Aspirin 325 mg a day, Protonix 40 mg a day, metoprolol 12.5 mg a day, Ranexa 500 mg p.o. b.i.d., simvastatin 40 mg a day. ALLERGIES: CODEINE. CODE STATUS: FULL. PENDING AT THE TIME OF DISCHARGE: Nothing. HOSPITAL COURSE: The patient was admitted through [facility] with 45 minutes of inability to find words to talk. This resolved. He had no associated symptoms, double vision, foca l weakness, etc. His neurological exam has remained normal. He had a CT of the brain, which reveale d no intracranial abnormality. He has an MRI that reveals only microvascular disease. No focal find ings. No focal diffusion problem. Carotid Doppler shows no significant stenosis. LABORATORY DATA: White count 4.5, hemoglobin 14.6, platelet count 196,000. INR 1.0. Comp metabolic profile normal except for a chloride of 108. I have discussed with the patient today the findings. He is comfortable with going home. We have increased his aspirin from 81 mg a day to 325 mg a day. He has been instructed to follow up with his PCP in 1 week.
--- NOTE | 2017-06-25 15:22 | EKG ---
Test Reason : Blood Pressure : / mmHG Vent. Rate : 069 BPM Atrial Rate : 069 BPM P-R Int : 148 ms QRS Dur : 098 ms QT Int : 420 ms P-R-T Axes : 042 003 018 degrees QTc Int : 450 ms Normal sinus rhythm Normal ECG Confirmed by VICKI IVY, MIRI Osborne ([id number]), desk editor ROSALIE NICOLE ([id number]) on 06/25/2017 3:22:42 PM Referred By: Confirmed By:MIRI COHEN MD
== END 2017-06-22 15:30 | disposition home or self-care (01) ==
LOC: ERS 20:43 → ERHOLD 22:20 → 2SE 06-22 01:53
PROVIDERS: ADMIT Internal Medicine; ATTEND Internal Medicine
DX: G45.9 Transient cerebral ischemic attack, unspecified (principal); I25.10 Atherosclerotic heart disease of native coronary artery without angina pectoris; E78.5 Hyperlipidemia, unspecified; I10 Essential (primary) hypertension; E78.00 Pure hypercholesterolemia, unspecified; K44.9 Diaphragmatic hernia without obstruction or gangrene; Z87.891 Personal history of nicotine dependence; Z95.1 Presence of aortocoronary bypass graft; Z79.82 Long term (current) use of aspirin; Z79.899 Other long term (current) drug therapy; Z88.5 Allergy status to narcotic agent
CPT/HCPCS: 70450; 70551; 71045; 80053; 82550; 82553; 82962; 84484; 85025; 85610; 85730; 93005; 93880; 94760; 96372; 97139 ×2; 99285; G0378; G8978; G8979; G8980; 36416; G8996-GN-CH; G8997-GN-CH; J1650

== ENCOUNTER 2018-03-31 09:52 | Outpatient (CLI) | payer MEDICARE, BC ==
--- NOTE | 2018-03-31 11:01 | RAD ---
TWO VIEWS CHEST: Date: 03-31-18 History: Chest wall pain. FINDINGS: Midline sternotomy wires and mediastinal clips are present. Moderate hiatal hernia noted. No pneumoth orax, pleural fluid, lobar consolidation, or alveolar edema. There is atherosclerotic calcification o f upper abdominal aorta noted. IMPRESSION: Chronic findings as detailed above. No focal consolidation or alveolar edema. POS: [facility]
== END 2018-03-31 09:53 | disposition home or self-care (01) ==
LOC: RAD 09:52
PROVIDERS: ATTEND Nurse Practitioner Family
DX: R07.89 Other chest pain (principal); K44.9 Diaphragmatic hernia without obstruction or gangrene; I70.0 Atherosclerosis of aorta; Z98.890 Other specified postprocedural states
CPT/HCPCS: 71046

== ENCOUNTER 2018-07-06 19:30 | Outpatient (CLI) | payer MEDICARE, BC | END 2018-07-06 19:31 | disposition home or self-care (01) | LOC: SLEEPLAB 19:30 | PROVIDERS: ATTEND Internal Medicine | DX: G47.33 Obstructive sleep apnea (adult) (pediatric) (principal); K21.9 Gastro-esophageal reflux disease without esophagitis; I25.10 Atherosclerotic heart disease of native coronary artery without angina pectoris; R53.83 Other fatigue; I10 Essential (primary) hypertension | CPT/HCPCS: 95810 ==

== ENCOUNTER 2018-08-09 19:30 | Outpatient (CLI) | payer MEDICARE, BC | END 2018-08-09 19:31 | disposition home or self-care (01) | LOC: SLEEPLAB 19:30 | PROVIDERS: ATTEND Internal Medicine | DX: G47.33 Obstructive sleep apnea (adult) (pediatric) (principal); R53.83 Other fatigue; K21.9 Gastro-esophageal reflux disease without esophagitis; R06.83 Snoring; I25.10 Atherosclerotic heart disease of native coronary artery without angina pectoris; G47.31 Primary central sleep apnea; I49.3 Ventricular premature depolarization | CPT/HCPCS: 95811 ==

== ENCOUNTER 2018-12-21 09:43 | Outpatient (CLI) | payer MEDICARE, BC ==
--- NOTE | 2018-12-21 11:49 | MRI ---
MR the lumbar spine with and without contrast: 12/21/2018 History: Unstable gait, sacroiliitis, back pain, history of lumbar spine surgery COMPARISON: 04/17/2016 TECHNIQUE: Multiplanar multisequence MR images were obtained of lumbar spine with and without IV cont rast FINDINGS: On the basis of 5 lumbar type vertebral bodies, conus medullaris terminates at theL1-2 level. Sagittal STIR imaging demonstrates edematous degenerative endplate change at the L2-3 level. T11-12: There is disc space narrowing with disc desiccation and mild disc bulge partially effacing th e ventral thecal sac and leading to a mild/moderate degree of central canal stenosis. Facet hypertrophy on the right causes severe right neural foraminal stenosis. There is mild left neural for aminal stenosis. T12-L1:There is disc space narrowing and disc desiccation with disc bulge causing mild central canal stenosis. Facet hypertrophy and hypertrophy of the ligamentum flavum, right greater than left. Moderate neural foraminal stenosis noted on the right secondary to facet hypertrophy and a foraminal disc protrusion. There is a small 7-8 mm disc extrusion with superior migration in the right paracentral region. L1-2:Bilateral facet hypertrophy and hypertrophy of the ligamentum flavum. Disc space narrowing with disc desiccation. Anterior and posterior osteophyte formation noted as well as disc bulge. There is moderate bilateral neural foraminal stenosis and mild central canal stenosis. L2-3:There is disc space narrowing and degenerative endplate change with anterior osteophyte formatio n. There is disc bulge with moderate/severe central canal stenosis. There is bilateral facet and uncovertebral osteophyte formation with moderate/severe bilateral neural foraminal stenosis. L3-4:There is disc space narrowing and disc desiccation with mild disc bulge. There is anterolisthesi s measuring 5 mm. There is moderate right and severe left neural foraminal stenosis. There is mild central canal stenosis. Bilateral laminectomy changes are suspected at the inferior margin of L3 and involving the L4 vertebr al body. L4-5:There is disc space narrowing and disc desiccation with a small central disc protrusion. No cent ral canal stenosis. Bilateral facet hypertrophy noted with moderate bilateral neural foraminal stenosis. L5-S1:There is disc space narrowing and disc desiccation. Mild disc bulge. Bilateral facet hypertroph y. No significant central canal stenosis. Moderate/severe right neural foraminal stenosis and mild left neural foraminal stenosis. Image retroperitoneal structures demonstrate no acute findings. Exophytic cyst emanating from the rig ht kidney measuring 2.6 cm. The postcontrast imaging demonstrates no abnormal enhancement involving the contents of the thecal sa c, the intervertebral discs, or the imaged osseous structures. The multilevel severe degenerative change within the lumbar spine is similar when compared to the adamaris or examination. The prior exam was limited by motion artifact.. IMPRESSION: Prominent multilevel degenerative change within the lumbar spine as described above.
[2018-12-21] MEDS ORDERED: Magnevist 469MG/ML 20 ML VIAL ONE (15:35)
== END 2018-12-21 09:44 | disposition home or self-care (01) ==
LOC: BICMRI 09:43
PROVIDERS: ATTEND Anesthesiology Pain Medicine
DX: M46.1 Sacroiliitis, not elsewhere classified (principal); M47.816 Spondylosis without myelopathy or radiculopathy, lumbar region; M47.817 Spondylosis without myelopathy or radiculopathy, lumbosacral region
CPT/HCPCS: 72158; 82565; A9579

== ENCOUNTER 2019-04-17 14:08 | Inpatient (IN) | payer MEDICARE, BC ==
[2019-04-17 15:02] LABS: #Eosinphils 0.1 thou/uL (0.0-0.7); #Lymphocytes 0.8 thou/uL (1.20-3.40); #Monocytes 0.4 thou/uL (0.11-0.59); #Neutrophils 3.2 thou/uL (1.40-6.50); %Eosinophils 2.9 % (0.0-10.0); %Lymphocytes 17.1 % (21.0-51.0); %Monocytes 8.7 % (0.0-10.0); %Neutrophils 71.3 % (42.0-75.0); Hemoglobin 14.8 g/dL (14.0-18.0); Mean Corpuscular HGB CONC 34.6 g/dL (32.0-36.0); Mean Corpuscular Hemoglobin 33.8 pg (27.0-31.0); Mean Corpuscular Volume 97.5 fL (78.0-98.0); Mean Platelet Volume 6.8 fL (7.4-10.4); Platelet Count 181 thou/uL (130-400); RBC Distribution Width 11.6 % (11.5-14.5); Red Blood Cell (RBC) Count 4.39 mill/uL (4.70-6.10); White Blood Cell (WBC) Count 4.5 thou/uL (4.8-10.8)
--- NOTE | 2019-04-17 15:07 | CT ---
BRAIN CT WITHOUT IV CONTRAST: Date: 04/17/2019 HISTORY: Feeling unstable, vertigo, weakness, tingling in left arm. COMPARISON: 06/21/2017. FINDINGS: There is bilateral atrophy and chronic white matter ischemic change noted. No focal mass or midline s hift. No intra or extra-axial hemorrhage. There are some small punctate stable soft tissue calcificat ions within the muscles in the infratemporal fossa, nonspecific. IMPRESSION: Atrophy and chronic white matter ischemic change. No mass or bleed. Findings called to Dr. Lucas in the emergency room at 1503 hours. CODE CR.
--- NOTE | 2019-04-17 15:34 | RAD ---
EXAM: CHEST TWO VIEWS: 04/17/19 HISTORY: Weakness. COMPARISON: 03/31/18. FINDINGS: Postop midline sternotomy. Linear and parenchymal changes in the right lower lobe primarily, slightly more prominent than on prior exam, 03/31/18. Moderate sized hiatal hernia. Heart size is within patricai l limits. There are also some mild linear parenchymal changes in the left base. IMPRESSION: No significant acute process in the chest. Linear and parenchymal changes in both bases showing littl e change, slightly more marked than on prior exam. Moderate sized hiatal hernia. No new process. POS: [facility]
[2019-04-17 15:38] LABS: ALT (SGPT) 12 U/L (8-55); AST (SGOT) 14 U/L (5-34); Albumin 4.1 g/dL (3.4-4.8); Alkaline Phosphatase 64 U/L (40-110); Anion Gap 14 mmol/L (10-20); BUN (Urea Nitrogen) 17 mg/dL (8.4-25.7); Bilirubin, Total 0.8 mg/dL (0.2-1.2); Calc. Creatinine Clearance 0 mL/min (70-130); Calcium 9.7 mg/dL (7.8-10.44); Carbon Dioxide 26 mmol/L (23-31); Chloride 104 mmol/L (98-107); Estimated GFR-MDRD 53; Globulin 2.4 g/dL (2.4-3.5); Glucose 184 mg/dL (83-110); Potassium 4.5 mmol/L (3.5-5.1); Protein, Total 6.5 g/dL (5.8-8.1); Sodium 139 mmol/L (136-145)
[2019-04-17] MEDS ORDERED: Ondansetron PF 4 MG/2 ML Vial ONE (16:33)
[2019-04-17 16:51] LABS: Bilirubin Negative (Negative); Blood, Urine Negative (Negative); Clarity Clear (Clear); Glucose, Urine (Dipstick) Normal (Negative); Leukocyte Negative Leu/uL (Negative); Nitrite Negative (Negative); Protein, Urine (Dipstick) Negative (Neg-Trace); Urobilinogen Normal mg/dL (Less than 2)
[2019-04-17] MEDS ORDERED: Labetalol HCl 100 MG/20 ML VIAL SLOW IVP PRN (17:57)
[2019-04-17] MEDS ORDERED: hydrALAZINE 20 MG/ML VIAL SLOW IVP PRN (17:57)
--- NOTE | 2019-04-17 18:17 | PDOC.HHP ---
Hospitalist HPI - History of Present Illness Left sided Weakness, dysarthria History of Present Illness: PCP: Dr. Ray The patient is a 83/M with PMH significant for CABG x 4, HTN, HLD, vertigo, and UGI bleed that presents to the ER for the above complaint. The patient reports that he was at the grocery store with his son when he suddenly developed an unsteady gait and slurred speech, onset approximately 1300, reports associated numbness to the fingertips of his left hand, Denies vertigo, stating this was different than my vertigo several years ago. Denies any headache, recent fall/ trauma, fever/illness, change in medications. Denies any chest pain, heart palpitations, SOB. For these reasons he had his son drive him to the ER. ED Course: BP: 167/88, Pulse: 78, Resp: 18, Temp: 98.0 (Oral), O2 sat: 96 on (Room Air) GCS 15 CT brain negative for acute intracranial process EKG NSR 72 bpm, no ST elevation CE negative labs unremarkable Given: Zofran 4mg IVP Hospitalist ROS - Review of Systems Constitutional: denies: fever, chills, sweats, weakness, malaise, other Eyes: denies: pain, vision change, conjunctivae inflammation, eyelid inflammation, redness, other ENT: denies: ear pain, ear discharge, nose pain, nose discharge, nose congestion , mouth pain, mouth swelling, throat pain, throat swelling, other Respiratory: denies: cough, dry, shortness of breath, hemoptysis, SOB with excertion, pleuritic pain, sputum, wheezing, other Cardiovascular: denies: chest pain, palpitations, orthopnea, paroxysmal noc. dyspnea, edema, light headedness, other Gastrointestinal: denies: nausea, vomiting, abdominal pain, diarrhea, constipation, melena, hematochezia, other Genitourinary: denies: dysuria, frequency, incontinence, hematuria, retention, other Musculoskeletal: denies: neck pain, shoulder pain, arm pain, back pain, hand pain, leg pain, foot pain, other Skin: denies: rash, lesions, charisma, bruising, other Neurological: reports: weakness, numbness, incoordination, change in speech. denies: confusion Hospitalist History - Past Medical History Source: patient Cardiac: reports: HTN, NC, Hyperlipidemia TEAM [employer]: reports: Vertigo Gastrointestinal: reports: Peptic ulcer disease - Past Surgical History Past Surgical History: reports: Appendectomy, Other (hiatal hernia, CABG x 4, Back) - Family History Family History: reports: cardiac disorder, cerebrovascular accident - Social History Smoking Status: Former smoker (reports smoked briefly as teenager) Drugs: reports: none Living Situation: With Family Occupation: Lives in [place] with son, retired [employer] Activity level: independent ambulation - Exam General Appearance: NAD, awake alert Eye: PERRL, anicteric sclera ENT: normocephalic atraumatic, moist mucosa Neck: supple, no JVD, no thyromegaly, no lymphadenopathy Heart: RRR, no murmur, no gallops, no rubs, normal peripheral pulses Respiratory: CTAB, no wheezes, no rales, no ronchi Gastrointestinal: soft, non-tender, normal bowel sounds, no guarding, no rigidity Extremities: no cyanosis Extremities - other findings: Trace edema BLE L>R Skin: no rashes Neurological: cranial nerve grossly intact Neurological - other findings: GCS 15, LLE mild weakness, noticable dysarthria, NIH 3 Psychiatric: normal affect, A&O x 3 Hospitalist Results - Labs Result Diagrams: 04/17/19 14:49 04/17/19 14:49 Lab results: WBC 4.5 thou/uL (4.8-10.8) L 04/17/19 14:49 Hgb 14.8 g/dL (14.0-18.0) 04/17/19 14:49 Hct 42.7 % (42.0-52.0) 04/17/19 14:49 MCV 97.5 fL (78.0-98.0) 04/17/19 14:49 Plt Count 181 thou/uL (130-400) 04/17/19 14:49 Neutrophils % 71.3 % (42.0-75.0) 04/17/19 14:49 Sodium 139 mmol/L (136-145) 04/17/19 14:49 Potassium 4.5 mmol/L (3.5-5.1) 04/17/19 14:49 Chloride 104 mmol/L (98-107) 04/17/19 14:49 Carbon Dioxide 26 mmol/L (23-31) 04/17/19 14:49 BUN 17 mg/dL (8.4-25.7) 04/17/19 14:49 Creatinine 1.30 mg/dL (0.7-1.3) 04/17/19 14:49 Glucose 184 mg/dL (83-110) H 04/17/19 14:49 Calcium 9.7 mg/dL (7.8-10.44) 04/17/19 14:49 Total Bilirubin 0.8 mg/dL (0.2-1.2) 04/17/19 14:49 AST 14 U/L (5-34) 04/17/19 14:49 ALT 12 U/L (8-55) 04/17/19 14:49 Alkaline Phosphatase 64 U/L (40-110) 04/17/19 14:49 Troponin I Less than 0.010 ng/mL (< 0.028) 04/17/19 14:49 Serum Total Protein 6.5 g/dL (5.8-8.1) 04/17/19 14:49 Albumin 4.1 g/dL (3.4-4.8) 04/17/19 14:49 Urine Ketones Negative mg/dL (Negative) 04/17/19 16:05 Urine Blood Negative (Negative) 04/17/19 16:05 Urine Nitrite Negative (Negative) 04/17/19 16:05 Ur Leukocyte Esterase Negative [place]/uL (Negative) 04/17/19 16:05 - EKG Interpretation EKG: NSR - Radiology Interpretation CT scan - head Status: report reviewed by ca Hospitalist H&P A/P - Problem (1) Dysarthria Code(s): R47.1 - DYSARTHRIA AND ANARTHRIA Status: Acute Assessment and Plan: Admit to stroke unit, observation monitor and storage bin tender Aspirin 243mg given in ER Order MRI, CD US, Echocardiogram Consult neurology and Stroke team Start ASA 81mg daily Order TSH, FLP, HA1C, B12 and folate (2) CVA (cerebral vascular accident) Code(s): I63.9 - CEREBRAL INFARCTION, UNSPECIFIED Status: Acute Assessment and Plan: Order MRI, CD US, Echocardiogram Consult neurology and Stroke team Start ASA 81mg daily Order TSH, FLP, HA1C, B12 and folate (3) Elevated random blood glucose level Code(s): R73.09 - OTHER ABNORMAL GLUCOSE Status: Acute Assessment and Plan: Will check HA1C (4) Hypertension Code(s): I10 - ESSENTIAL (PRIMARY) HYPERTENSION Status: Chronic Assessment and Plan: monitor blood pressure q 4 hours Restart home medications when reconciled by nursing labatolol and hydralazine prn HH diet (5) Dyslipidemia Code(s): E78.5 - HYPERLIPIDEMIA, UNSPECIFIED Status: Chronic Assessment and Plan: FLP in am restart home medications when reconciled by nursing (6) CAD (coronary artery disease) Code(s): I25.10 - ATHSCL HEART DISEASE OF [place] CORONARY ARTERY W/O ANG PCTRS Status: Chronic Assessment and Plan: monitor technician Trend troponins Continue ASA 81 mg daily Resart home medications when reconciled HH diet (7) H/O four vessel coronary artery bypass graft Code(s): Z95.1 - PRESENCE OF AORTOCORONARY BYPASS GRAFT Status: Chronic (8) H/O vertigo Code(s): Z87.898 - PERSONAL HISTORY OF OTHER SPECIFIED CONDITIONS Status: Chronic (9) H/O: upper GI bleed Code(s): Z87.19 - PERSONAL HISTORY OF OTHER DISEASES OF THE DIGESTIVE SYSTEM Status: Chronic Assessment and Plan: Start PPI
[2019-04-17 18:45] LABS: Troponin I 0.017 ng/mL (< 0.028)
[2019-04-17] MEDS ORDERED: Aspirin 81 mg Enteric Coated Tablet PO SCH (18:45)
[2019-04-17 19:06] LABS: Thyroid Stimulating Hormone 1.5903 uIU/mL (0.35-4.94)
[2019-04-17 19:18] LABS: Hemoglobin A1c 5.5 % (4.0-6.0)
[2019-04-17] MEDS ORDERED: Famotidine 20 MG TAB PO SCH (21:00)
[2019-04-17 21:51] LABS: Troponin I Less than 0.010 ng/mL (< 0.028)
[2019-04-17 22:10] VITALS: BMI 25.9
[2019-04-17] MEDS ORDERED: Ondansetron ODT 4 MG TAB PO PRN (22:34)
[2019-04-17] MEDS: Ondansetron PF 4 MG/2 ML Vial IVP PRN (23:46)
[2019-04-18 05:06] LABS: #Eosinphils 0.1 thou/uL (0.0-0.7); #Lymphocytes 0.9 thou/uL (1.20-3.40); #Monocytes 0.3 thou/uL (0.11-0.59); #Neutrophils 3.6 thou/uL (1.40-6.50); %Basophils 0.1 % (0.0-1.0); %Eosinophils 1.2 % (0.0-10.0); %Lymphocytes 18.5 % (21.0-51.0); %Monocytes 6.4 % (0.0-10.0); %Neutrophils 73.8 % (42.0-75.0); Hemoglobin 13.1 g/dL (14.0-18.0); Mean Corpuscular HGB CONC 34.6 g/dL (32.0-36.0); Mean Platelet Volume 6.4 fL (7.4-10.4); Platelet Count 176 thou/uL (130-400); RBC Distribution Width 11.5 % (11.5-14.5); Red Blood Cell (RBC) Count 3.87 mill/uL (4.70-6.10); White Blood Cell (WBC) Count 4.9 thou/uL (4.8-10.8)
[2019-04-18 05:22] LABS: Anion Gap 10 mmol/L (10-20); BUN (Urea Nitrogen) 16 mg/dL (8.4-25.7); Calc. Creatinine Clearance 64 mL/min (70-130); Calcium 9.2 mg/dL (7.8-10.44); Carbon Dioxide 27 mmol/L (23-31); Cardiac Risk 5.2 (Less than 4.5); Chloride 104 mmol/L (98-107); Cholesterol 217 mg/dl (< 200 Desired); Estimated GFR-MDRD 73; Glucose 118 mg/dL (83-110); HDL Cholesterol 42 mg/dL (>60 Neg Risk); LDL Cholesterol, Calculated 145 mg/dL; Sodium 137 mmol/L (136-145); Triglycerides 149 mg/dL (Less than 150)
[2019-04-18] MEDS: Ondansetron PF 4 MG/2 ML Vial IVP PRN (06:04)
--- NOTE | 2019-04-18 08:33 | ULT ---
BILATERAL CAROTID DUPLEX ULTRASOUND: DATE: 04/18/2019 HISTORY: Left-sided weakness. TECHNIQUE: [place] scale ultrasound with color flow and spectral Doppler imaging of the extracranial carotid artery systems performed bilaterally. FINDINGS: There is plaque formation in the left proximal ICA. The peak systolic velocity in the right ICA measures 58 cm/second with an end-diastolic velocity of 1 5 cm/second and a systolic ratio of 0.75. The peak systolic velocity in the left ICA measures 67 cm/second with an end-diastolic velocity of 9 cm/second and a systolic ratio of 0.80. Flow in both vertebral arteries remains antegrade. IMPRESSION: No evidence of hemodynamically significant stenosis. POS: [facility]
[2019-04-18] MEDS ORDERED: Aspirin 325 mg Enteric Coated Tablet PO SCH (09:00)
[2019-04-18] MEDS ORDERED: Aspirin 81 mg Enteric Coated Tablet PO SCH ×2 (09:00)
--- NOTE | 2019-04-18 09:07 | MRI ---
MRI BRAIN WITHOUT CONTRAST: Date: 04/18/2019 HISTORY: Stroke. Unstable, vertigo, weakness, tingling in left arm. COMPARISON: 06/22/2017. CORRELATION: CT scan of previous day. FINDINGS: There is focal restricted diffusion in the right side of the jose antonio, which is new since the last exam, consistent with acute infarction. Changes of cortical atrophy and chronic small vessel ischemic disea se are again seen. No transcortical infarct, hemorrhage, midline shift, or abnormal extra-axial fluid collections are seen. The ventricular size is stable and the basilar cisterns are patent. There is m inimal mucosal disease in the paranasal sinuses. IMPRESSION: Acute right pontine infarction. POS: [facility]
[2019-04-18] MEDS ORDERED: hydrALAZINE 20 MG/ML VIAL SLOW IVP PRN (13:59)
[2019-04-18] MEDS ORDERED: Labetalol HCl 100 MG/20 ML VIAL SLOW IVP PRN (14:00)
--- NOTE | 2019-04-18 14:01 | PDOC.HOSPP ---
- Subjective Encounter Date: 04/18/19 Encounter Time: 09:15 Subjective: Patient seen and examined. No new complaints. No overnight events - Objective Vital Signs & Weight: Vital Signs (12 hours) Temp Pulse Pulse Pulse Resp BP BP 04/18/19 11:24 62 61 188/95 H 04/18/19 11:22 97.6 F 62 12 04/18/19 08:00 97.4 F L 68 16 169/90 H 04/18/19 07:58 97.4 F L 95 15 04/18/19 04:00 98 F 70 18 BP BP Pulse Ox 04/18/19 11:24 176/78 H 04/18/19 11:22 188/95 H 95 04/18/19 08:00 95 04/18/19 07:58 169/90 H 95 04/18/19 04:00 144/85 H 94 L Weight Weight 175 lb I&O: 04/17/19 04/18/19 04/19/19 06:59 06:59 06:59 Intake Total 300 Output Total 150 Balance 150 Result Diagrams: 04/18/19 04:37 04/18/19 04:37 Additional Labs: Accuchecks 04/17/19 18:05 POC Glucose 140 H Radiology Reviewed by me: Yes EKG Reviewed by me: Yes Hospitalist ROS - Review of Systems Eyes: denies: pain, vision change, conjunctivae inflammation, eyelid inflammation, redness, other ENT: denies: ear pain, ear discharge, nose pain, nose discharge, nose congestion , mouth pain, mouth swelling, throat pain, throat swelling, other Respiratory: denies: cough, dry, shortness of breath, hemoptysis, SOB with excertion, pleuritic pain, sputum, wheezing, other Cardiovascular: denies: chest pain, palpitations, orthopnea, paroxysmal noc. dyspnea, edema, light headedness, other Gastrointestinal: reports: nausea. denies: vomiting, abdominal pain, diarrhea, constipation, melena, hematochezia, other Genitourinary: denies: dysuria, frequency, incontinence, hematuria, retention, other Musculoskeletal: denies: neck pain, shoulder pain, arm pain, back pain, hand pain, leg pain, foot pain, other - Medication Medications: Active Medications Generic Name Dose Route Start Last Admin Trade Name Freq PRN Reason Stop Dose Admin Ondansetron HCl 4 mg 04/17/19 22:34 04/18/19 06:04 Zofran IVP 4 mg Q6H PRN Administration Nausea/Vomiting Pantoprazole Sodium 40 mg 04/18/19 09:00 04/18/19 09:44 Protonix PO 40 mg DAILY NIKKI Administration Sodium Chloride 10 ml 04/17/19 21:00 04/18/19 09:44 Flush - Normal Saline IVF 10 ml Q12HR NIKKI Administration - Exam General Appearance: NAD, awake alert Eye: PERRL, anicteric sclera ENT: normocephalic atraumatic, no oropharyngeal lesions Neck: supple, symmetric, no JVD, no thyromegaly Heart: RRR, no murmur, no gallops, no rubs Respiratory: CTAB, no wheezes, no rales, no ronchi Gastrointestinal: soft, non-tender, non-distended, normal bowel sounds Extremities: no cyanosis, no clubbing, no edema Skin: normal turgor, no lesions Neurological: no focal deficits Musculoskeletal: normal tone, normal strength Psychiatric: normal affect, normal behavior Hosp A/P (1) CVA (cerebral vascular accident) Code(s): I63.9 - CEREBRAL INFARCTION, UNSPECIFIED Status: Acute Qualifiers: CVA mechanism: unspecified Qualified Code(s): I63.9 - Cerebral infarction, unspecified (2) H/O four vessel coronary artery bypass graft Code(s): Z95.1 - PRESENCE OF AORTOCORONARY BYPASS GRAFT Status: Chronic (3) Normochromic anemia Code(s): D64.9 - ANEMIA, UNSPECIFIED Status: Acute (4) CAD (coronary artery disease) Code(s): I25.10 - ATHSCL HEART DISEASE OF [place] CORONARY ARTERY W/O ANG PCTRS Status: Chronic (5) Chronic low back pain Code(s): M54.5 - LOW BACK PAIN; G89.29 - OTHER CHRONIC PAIN Status: Chronic (6) Dyslipidemia Code(s): E78.5 - HYPERLIPIDEMIA, UNSPECIFIED Status: Chronic (7) Hypertension Code(s): I10 - ESSENTIAL (PRIMARY) HYPERTENSION Status: Chronic - Plan old records reviewed/req, PT/OT, speech therapy pt has acute right pontine infarct, will change to inpt status, stroke team evaluation add lipitor add lovenox for DVT prophylaxis add amlodipine 2.5 mg po daily medication reviewed continue symptomatic care
--- NOTE | 2019-04-18 19:50 | PDOC.EVN ---
Event Note - Event Note Event Note: Per nursing, Patient reports failed statin therapy outpatient, makes him feel terrible. He has zetia prescription from his PCP that he is supposed to be taking as home medications. Will stop statin. Nurse to pass on information to dayshift.
--- NOTE | 2019-04-18 20:16 | CON ---
DATE OF CONSULTATION: 04/18/2019 CONSULTING PHYSICIAN: Hospitalist Service. IMPRESSION: 1. Pontine stroke. 2. Hypertension. 3. Hyperlipidemia. 4. Aspirin failure. PLAN: 1. Aggrenox 1 capsule twice a day versus add Plavix 75 mg per day. 2. PT assessment. 3. Probable need for inpatient rehab. HISTORY OF PRESENT ILLNESS: Mr. Tipton is an 83-year-old gentleman with a past history of hypertension, coronary artery disease, developed acute left-sided weakness and numbness, who came into the hospital for evaluation. His MRI of the brain confirmed an acute infarct in the right side of the jose antonio with fairly extensive small-vessel ischemic changes. Otherwise, his carotid ultrasound did not show any extracranial stenosis. His lipid profile showed a ratio of 5.2. His echo has been completed, but the results are pending. Remainder of his lab work was otherwise unremarkable. He has not seen any improvement in his neurologic symptoms. He did pass a swallow study. He denies any headache, nausea, vomiting, vertigo, double vision, but does report some slight blurred vision. ALLERGIES: CODEINE. SOCIAL HISTORY: No tobacco use. FAMILY HISTORY: Noncontributory. MEDICATION LIST: Reviewed. REVIEW OF SYSTEMS: 10-system review of systems is otherwise negative. PHYSICAL EXAMINATION: VITAL SIGNS: Blood pressure 169/90, pulse 95, respirations 15. HEENT: Pupils are equal. Conjunctivae clear. Oropharynx clear. Cranium; normocephalic and atraumatic. NECK: Supple. No lymphadenopathy. EXTREMITIES: No cyanosis or edema. NEUROLOGIC: He is alert and cooperative. His speech was moderately dysarthric, but fluent. Cranial nerve exam shows some flattening of the left nasolabial fold. He had some mild left upper and lower extremity weakness. There was diminished sensation distally in both the hand and the foot. Gait was not tested. Plantar response was upgoing on the left and equivocal on the right. IMAGING: Reviewed. EKG shows a sinus rhythm. SUMMARY: This is an elderly gentleman with hypertension who presents with a small-vessel stroke in the jose antonio. I suspect he will need to be transferred to Rehab. He could be switched over to Aggrenox 1 twice a day rather than a short course of Plavix for 6 months for long-term management. Job ID: [id number]
[2019-04-18] MEDS: Ezetimibe 10 MG TAB PO SCH (20:40)
[2019-04-18] MEDS ORDERED: Atorvastatin Calcium 40 MG TAB PO SCH (21:00)
[2019-04-19] MEDS ORDERED: Aspirin 325 MG TAB PO SCH (09:00)
[2019-04-19] MEDS: Enoxaparin Sodium 40 MG/0.4 ML SYRINGE SC SCH (10:04)
[2019-04-19] MEDS: Amlodipine 5 MG TAB PO SCH (10:05)
[2019-04-19] MEDS: Aggrenox 200-25mg CAP PO SCH (10:05)
--- NOTE | 2019-04-19 11:25 | PDOC.HOSPP ---
- Subjective Encounter Date: 04/19/19 Encounter Time: 07:15 Subjective: Patient seen and examined. pt has dysarthria, left side weakness, No overnight events - Objective Vital Signs & Weight: Vital Signs (12 hours) Temp Pulse Pulse Pulse Resp BP BP 04/19/19 10:05 74 04/19/19 09:06 74 66 150/97 H 172/78 H 04/19/19 07:25 98.4 F 74 14 04/19/19 03:18 98.2 F 68 16 04/19/19 00:00 97.9 F 74 14 BP Pulse Ox 04/19/19 10:05 04/19/19 09:06 04/19/19 07:25 153/86 H 93 L 04/19/19 03:18 128/79 94 L 04/19/19 00:00 133/74 94 L Weight Weight 175 lb I&O: 04/18/19 04/19/19 04/20/19 06:59 06:59 06:59 Intake Total 300 1920 240 Output Total 150 600 Balance 150 1320 240 Result Diagrams: 04/18/19 04:37 04/18/19 04:37 Radiology Reviewed by me: Yes EKG Reviewed by me: Yes Hospitalist ROS - Review of Systems ROS unobtainable: due to mental status - Medication Medications: Active Medications Generic Name Dose Route Start Last Admin Trade Name Freq PRN Reason Stop Dose Admin Amlodipine Besylate 2.5 mg 04/19/19 09:00 04/19/19 10:05 Norvasc PO 2.5 mg DAILY NIKKI Administration Aspirin 325 mg 04/19/19 09:00 04/19/19 10:04 Aspirin PO 325 mg DAILY NIKKI Administration Dipyridamole/Aspirin 1 cap 04/19/19 09:00 04/19/19 10:05 Aggrenox PO 04/22/19 09:01 1 cap DAILY NIKKI Administration Ezetimibe 10 mg 04/18/19 21:00 04/18/19 20:40 Zetia PO 10 mg HS NIKKI Administration Enoxaparin Sodium 40 mg 04/19/19 09:00 04/19/19 10:04 Lovenox SC 40 mg 0900 NIKKI Administration Ondansetron HCl 4 mg 04/17/19 22:34 04/18/19 06:04 Zofran IVP 4 mg Q6H PRN Administration Nausea/Vomiting Pantoprazole Sodium 40 mg 04/18/19 09:00 04/19/19 10:06 Protonix PO 40 mg DAILY NIKKI Administration Sodium Chloride 10 ml 04/17/19 21:00 04/19/19 10:07 Flush - Normal Saline IVF 10 ml Q12HR NIKKI Administration - Exam General Appearance: NAD, awake alert Eye: PERRL, anicteric sclera ENT: normocephalic atraumatic, no oropharyngeal lesions Neck: supple, symmetric, no JVD, no thyromegaly Heart: RRR, no murmur, no gallops, no rubs Respiratory: CTAB, no wheezes, no rales, no ronchi Gastrointestinal: soft, non-tender, non-distended, normal bowel sounds Extremities: no cyanosis, no clubbing, no edema Skin: normal turgor, no lesions Neurological: hemiplegia, speech deficit Musculoskeletal: normal tone, normal strength Psychiatric: normal affect, normal behavior Hosp A/P (1) CVA (cerebral vascular accident) Code(s): I63.9 - CEREBRAL INFARCTION, UNSPECIFIED Status: Acute Qualifiers: CVA mechanism: unspecified Qualified Code(s): I63.9 - Cerebral infarction, unspecified (2) H/O four vessel coronary artery bypass graft Code(s): Z95.1 - PRESENCE OF AORTOCORONARY BYPASS GRAFT Status: Chronic (3) Normochromic anemia Code(s): D64.9 - ANEMIA, UNSPECIFIED Status: Acute (4) CAD (coronary artery disease) Code(s): I25.10 - ATHSCL HEART DISEASE OF [place] CORONARY ARTERY W/O ANG PCTRS Status: Chronic (5) Chronic low back pain Code(s): M54.5 - LOW BACK PAIN; G89.29 - OTHER CHRONIC PAIN Status: Chronic (6) Dyslipidemia Code(s): E78.5 - HYPERLIPIDEMIA, UNSPECIFIED Status: Chronic (7) Hypertension Code(s): I10 - ESSENTIAL (PRIMARY) HYPERTENSION Status: Chronic - Plan old records reviewed/req, PT/OT, social problems specialist, speech therapy pt has acute right pontine infarct, will change to inpt status, stroke team evaluation add lipitor add lovenox for DVT prophylaxis add amlodipine 2.5 mg po daily medication reviewed continue symptomatic care 04/19/19 continue agreenox as per neuro continue aspirin will keep in hospital today will need rehab on discharge stroke team evaluation
[2019-04-19] MEDS: Ezetimibe 10 MG TAB PO SCH (21:15)
[2019-04-20] MEDS: Aggrenox 200-25mg CAP PO SCH (08:23)
[2019-04-20] MEDS: Amlodipine 5 MG TAB PO SCH (08:24)
[2019-04-20] MEDS: Enoxaparin Sodium 40 MG/0.4 ML SYRINGE SC SCH (08:29)
--- NOTE | 2019-04-20 09:35 | PDOC.HOSPP ---
- Subjective Encounter Date: 04/20/19 Encounter Time: 07:15 Subjective: Patient seen and examined. No new complaints. No overnight events - Objective Vital Signs & Weight: Vital Signs (12 hours) Temp Pulse Resp BP Pulse Ox 04/20/19 08:24 89 04/20/19 07:38 98.1 F 83 12 160/96 H 94 L 04/20/19 03:39 97.7 F 81 18 148/93 H 95 04/19/19 23:08 99.5 F 80 20 156/86 H 95 Weight Weight 175 lb I&O: 04/19/19 04/20/19 04/21/19 06:59 06:59 06:59 Intake Total 1920 480 Output Total 600 225 Balance 1320 255 Result Diagrams: 04/18/19 04:37 04/18/19 04:37 Hospitalist ROS - Review of Systems ENT: denies: ear pain, ear discharge, nose pain, nose discharge, nose congestion , mouth pain, mouth swelling, throat pain, throat swelling, other Respiratory: denies: cough, dry, shortness of breath, hemoptysis, SOB with excertion, pleuritic pain, sputum, wheezing, other Gastrointestinal: denies: nausea, vomiting, abdominal pain, diarrhea, constipation, melena, hematochezia, other Genitourinary: denies: dysuria, frequency, incontinence, hematuria, retention, other Musculoskeletal: denies: neck pain, shoulder pain, arm pain, back pain, hand pain, leg pain, foot pain, other - Medication Medications: Active Medications Generic Name Dose Route Start Last Admin Trade Name Freq PRN Reason Stop Dose Admin Amlodipine Besylate 2.5 mg 04/19/19 09:00 04/20/19 08:24 Norvasc PO 2.5 mg DAILY NIKKI Administration Dipyridamole/Aspirin 1 cap 04/19/19 09:00 04/20/19 08:23 Aggrenox PO 04/22/19 09:01 1 cap DAILY NIKKI Administration Ezetimibe 10 mg 04/18/19 21:00 04/19/19 21:15 Zetia PO 10 mg HS NIKKI Administration Enoxaparin Sodium 40 mg 04/19/19 09:00 04/20/19 08:29 Lovenox SC 40 mg 0900 NIKKI Administration Ondansetron HCl 4 mg 04/17/19 22:34 04/18/19 06:04 Zofran IVP 4 mg Q6H PRN Administration Nausea/Vomiting Pantoprazole Sodium 40 mg 04/18/19 09:00 04/20/19 08:29 Protonix PO 40 mg DAILY NIKKI Administration Sodium Chloride 10 ml 04/17/19 21:00 04/20/19 08:29 Flush - Normal Saline IVF 10 ml Q12HR NIKKI Administration - Exam General Appearance: NAD, awake alert Eye: PERRL, anicteric sclera ENT: normocephalic atraumatic, no oropharyngeal lesions Neck: supple, symmetric, no JVD, no thyromegaly Heart: RRR, no murmur, no gallops, no rubs Respiratory: CTAB, no wheezes, no rales, no ronchi Gastrointestinal: soft, non-tender, non-distended, normal bowel sounds Extremities: no cyanosis, no clubbing, no edema Skin: normal turgor, no lesions Neurological: hemiplegia, speech deficit Musculoskeletal: normal tone, normal strength Psychiatric: normal affect, normal behavior, A&O x 3 Hosp A/P (1) CVA (cerebral vascular accident) Code(s): I63.9 - CEREBRAL INFARCTION, UNSPECIFIED Status: Acute Qualifiers: CVA mechanism: unspecified Qualified Code(s): I63.9 - Cerebral infarction, unspecified (2) H/O four vessel coronary artery bypass graft Code(s): Z95.1 - PRESENCE OF AORTOCORONARY BYPASS GRAFT Status: Chronic (3) Normochromic anemia Code(s): D64.9 - ANEMIA, UNSPECIFIED Status: Acute (4) CAD (coronary artery disease) Code(s): I25.10 - ATHSCL HEART DISEASE OF [place] CORONARY ARTERY W/O ANG PCTRS Status: Chronic (5) Chronic low back pain Code(s): M54.5 - LOW BACK PAIN; G89.29 - OTHER CHRONIC PAIN Status: Chronic (6) Dyslipidemia Code(s): E78.5 - HYPERLIPIDEMIA, UNSPECIFIED Status: Chronic (7) Hypertension Code(s): I10 - ESSENTIAL (PRIMARY) HYPERTENSION Status: Chronic - Plan old records reviewed/req, PT/OT, health social work professor, speech therapy pt has acute right pontine infarct, will change to inpt status, stroke team evaluation add lipitor add lovenox for DVT prophylaxis add amlodipine 2.5 mg po daily medication reviewed continue symptomatic care 04/19/19 continue agreenox as per neuro continue aspirin will keep in hospital today will need rehab on discharge stroke team evaluation 04/20/19 stroke team will need rehab continue medical therapy
[2019-04-20] MEDS: Acetaminophen 325 MG TAB PO PRN ×3 (10:46→21:35)
[2019-04-20] MEDS ORDERED: Polyethylene Glycol 3350 17 GM Packet PO SCH (11:00)
[2019-04-20] MEDS: Ezetimibe 10 MG TAB PO SCH (21:33)
[2019-04-21] MEDS: Aggrenox 200-25mg CAP PO SCH (08:41)
[2019-04-21] MEDS: Amlodipine 5 MG TAB PO SCH (08:41)
[2019-04-21] MEDS: Enoxaparin Sodium 40 MG/0.4 ML SYRINGE SC SCH (08:43)
--- NOTE | 2019-04-21 10:22 | CT ---
CT head noncontrast HISTORY: Altered mental status. CVA. COMPARISON: 04/17/2019. FINDINGS: There is no evidence of acute intracranial hemorrhage. A subtle oval area of decreased dens ity within the right side of the jose antonio correlates with the acute infarct demonstrated on the MRI from 04/18/2019. Prominent chronic ischemic small vessel disease again demonstrated throughout the periventricular whi te matter. Diffuse cortical atrophy is stable. Calcification within the arterial structures of the brain base. IMPRESSION: Interval CT evolution of the right pontine infarct. No other significant interval change. Atherosclerosis.
[2019-04-21] MEDS: Polyethylene Glycol 3350 17 GM Packet PO SCH (10:26)
[2019-04-21 11:29] LABS: Hemoglobin 15.6 g/dL (14.0-18.0); Mean Corpuscular HGB CONC 35.3 g/dL (32.0-36.0); Mean Corpuscular Hemoglobin 33.9 pg (27.0-31.0); Mean Platelet Volume 6.6 fL (7.4-10.4); Platelet Count 172 thou/uL (130-400); RBC Distribution Width 11.6 % (11.5-14.5); Red Blood Cell (RBC) Count 4.59 mill/uL (4.70-6.10); White Blood Cell (WBC) Count 7.1 thou/uL (4.8-10.8)
[2019-04-21 11:51] LABS: Phosphorus 2.4 mg/dL (2.3-4.7)
[2019-04-21 11:56] LABS: Anion Gap 12 mmol/L (10-20); BUN (Urea Nitrogen) 17 mg/dL (8.4-25.7); Calc. Creatinine Clearance 67 mL/min (70-130); Calcium 9.2 mg/dL (7.8-10.44); Carbon Dioxide 26 mmol/L (23-31); Chloride 103 mmol/L (98-107); Estimated GFR-MDRD 77; Glucose 228 mg/dL (83-110); Magnesium 1.9 mg/dL (1.6-2.6); Potassium 3.5 mmol/L (3.5-5.1); Sodium 137 mmol/L (136-145)
--- NOTE | 2019-04-21 13:23 | MRI ---
MRI brain noncontrast HISTORY: CVA. Worsening left-sided weakness. COMPARISON: 04/18/2019. FINDINGS: The focal area of restricted diffusion and ADC map defect involving the right side of the p ons has become more intense and larger since the previous exam. Now 1.9 cm oblique length by 1.0 cm width on the axial T2-weighted images. No new areas of infarct are apparent. Prominent chronic ischemic small vessel disease throughout the periventricular white matter and diffu se cortical atrophy are again demonstrated. There is no mass effect or shift of midline structures. IMPRESSION: Evolving right pontine infarct. No new abnormalities are demonstrated.
[2019-04-21] MEDS ORDERED: Amlodipine 5 MG TAB PO SCH (15:45)
[2019-04-21] MEDS: Acetaminophen 325 MG TAB PO PRN (18:06)
--- NOTE | 2019-04-21 19:18 | PRG ---
DATE OF SERVICE: 04/21/2019 Telemedicine Consultation CHIEF COMPLAINT: Worsening of weakness. HISTORY OF PRESENT ILLNESS: I was consulted on the patient per primary admitting physician because his left side is weaker and they did do an MRI today and the concern was whether it was a new stroke or there is some explanation for the phenomenon and his current report MRI of the brain was reviewed. He has an evolving right pontine infarct. No new abnormalities were detected. His restricted diffusion defect on the right side of the jose antonio has become more intense and larger since the previous exam. It is now at 1.9 cm x 1.0 cm. No other new areas of infarct are involved. LABORATORY DATA: White count 7.1, hemoglobin 15.6, hematocrit 44, platelet count 172. Chemistry; sodium 137, potassium 3.5, chloride 103, bicarb 26, BUN 17, creatinine 0.94, glucose 220. Cholesterol and lipid profile were slightly abnormal. PHYSICAL EXAMINATION: VITAL SIGNS: Temperature 98, pulse 85, blood pressure 134/89, O2 saturations 93 %. GENERAL APPEARANCE: Well-built, well-nourished man, who is elderly, lying in bed. CHEST: Clear vesicular breathing. NEUROLOGICAL: He does have normal orientation to place. He has dysarthria and he does follow commands. Pupils 2 mm, reactive to light. Tongue deviates to the left. He has mild left facial droop. Normal extraocular movements. Decreased sensation of left side of the face. Palate elevates equally. Motor examination, handgrip 10% on the left side, 2/5 strength in the left upper extremity, 0/5 in the left lower extremity. Deep tendon reflexes are absent. IMPRESSION: The patient is an 83-year-old man who was admitted for stroke and per Dr. Peñaloza note, he had mild left-sided weakness when he saw him a few days ago. At this time, his weakness is more profound and the concern was whether the patient has had another event. At this time, this seems to be more of an establishment of the ischemic area of the stroke which is a natural progression of his stroke phenomena and there are no new strokes. He will need assisted or rehab placement from here on. Please consult PM and R. I do agree with statin with anti-platelet agent. Please call if you have any further questions. Job ID: [id number] [facility]
[2019-04-21] MEDS: Ezetimibe 10 MG TAB PO SCH (20:50)
--- NOTE | 2019-04-21 22:12 | PDOC.HOSPP ---
- Subjective Encounter Date: 04/21/19 Encounter Time: 11:00 Subjective: F/u: stroke The patient states he is frustrated because he is unable to lift up his left arm and left leg and previously he was able to. He also has been having double vision. He complains that he is not getting enough therapy and wants to go to rehab. Repeat CT head negative, Repeat MRI brain also negative for stroke - Objective Vital Signs & Weight: Vital Signs (12 hours) Temp Pulse Resp BP BP Pulse Ox 04/21/19 19:50 97.8 F 91 14 136/83 94 L 04/21/19 16:00 98.0 F 85 18 134/89 93 L 04/21/19 15:49 105 H 134/89 04/21/19 12:00 98.4 F 105 H 16 145/75 H 92 L Weight Weight 175 lb I&O: 04/20/19 04/21/19 04/22/19 06:59 06:59 06:59 Intake Total 480 200 240 Output Total 225 200 100 Balance 255 0 140 Result Diagrams: 04/21/19 11:11 04/21/19 11:11 Hospitalist ROS - Review of Systems Constitutional: denies: fever, chills Respiratory: denies: cough, dry - Medication Medications: Active Medications Generic Name Dose Route Start Last Admin Trade Name Freq PRN Reason Stop Dose Admin Acetaminophen 650 mg 04/17/19 18:00 04/21/19 18:06 Tylenol PO 650 mg Q4H PRN Administration Headache/Fever/Mild Pain (1-3) Amlodipine Besylate 2.5 mg 04/19/19 09:00 04/21/19 08:41 Norvasc PO 2.5 mg DAILY NIKKI Administration Dipyridamole/Aspirin 1 cap 04/19/19 09:00 04/21/19 08:41 Aggrenox PO 04/22/19 09:01 1 cap DAILY NIKKI Administration Ezetimibe 10 mg 04/18/19 21:00 04/21/19 20:50 Zetia PO 10 mg HS NIKKI Administration Enoxaparin Sodium 40 mg 04/19/19 09:00 04/21/19 08:43 Lovenox SC 40 mg 0900 NIKKI Administration Ondansetron HCl 4 mg 04/17/19 22:34 04/18/19 06:04 Zofran IVP 4 mg Q6H PRN Administration Nausea/Vomiting Pantoprazole Sodium 40 mg 04/18/19 09:00 04/21/19 08:44 Protonix PO 40 mg DAILY NIKKI Administration Polyethylene Glycol 17 gm 04/21/19 09:00 04/21/19 10:26 Miralax PO 17 gm DAILY NIKKI Administration Sodium Chloride 10 ml 04/17/19 21:00 04/21/19 20:48 Flush - Normal Saline IVF Not Given Q12HR NIKKI - Exam General Appearance: NAD, awake alert Eye: PERRL, anicteric sclera Eye - other findings: self reported diplopia ENT: normocephalic atraumatic, no oropharyngeal lesions Neck: no JVD Heart: RRR, no murmur, no gallops, no rubs Respiratory: CTAB, no wheezes, no rales, no ronchi Gastrointestinal: soft, non-tender, non-distended, normal bowel sounds Extremities: no cyanosis, no clubbing, no edema Skin: normal turgor, no lesions, no rashes Neurological: cranial nerve grossly intact, normal sensation to touch Neurological - other findings: LUE flaccid, LLE flaccid. 0/5 strength LUE and LLE Musculoskeletal: normal tone Psychiatric: normal affect, normal behavior, A&O x 3 Hosp A/P - Plan CT head: resolution of infarct Carotid doppler: negative MRI brain: acute right pontine infarct CT brain: atrophy Chest X ray: negative ECHO: EF 50-55%, moderate MR, atrial regurgitation, mild TR, This is an 83 year old male patient who presented with left sided weakness which has gotten worst. Acute right pontine infarct - continue aggrenox - continue zetia - repeat CT head and MRI brain today was negative for worsening stroke. He will need rehab royce for left sided flaccity. Neurology re-evaluated the patient today and stated to continue current therapy. Will try to d/c tomorrow - B12 elevated, folate, TSH normal, A1C 5.5, LDL 217 Hypertensive Urgency - amlodipine 2.5 mg extra given today. Will increase amlodipine to 5 mg daily - continue furosemide, metoprolol, coreg DVT prophylaxis: enoxaparin Code status: full code
[2019-04-22 04:57] LABS: Hemoglobin 14.9 g/dL (14.0-18.0); Mean Corpuscular HGB CONC 33.7 g/dL (32.0-36.0); Mean Corpuscular Hemoglobin 32.6 pg (27.0-31.0); Mean Corpuscular Volume 96.7 fL (78.0-98.0); Mean Platelet Volume 6.6 fL (7.4-10.4); Platelet Count 190 thou/uL (130-400); RBC Distribution Width 11.7 % (11.5-14.5); Red Blood Cell (RBC) Count 4.56 mill/uL (4.70-6.10); White Blood Cell (WBC) Count 6.9 thou/uL (4.8-10.8)
[2019-04-22 05:17] LABS: Anion Gap 12 mmol/L (10-20); BUN (Urea Nitrogen) 17 mg/dL (8.4-25.7); Calc. Creatinine Clearance 75 mL/min (70-130); Carbon Dioxide 25 mmol/L (23-31); Chloride 104 mmol/L (98-107); Estimated GFR-MDRD 87; Glucose 116 mg/dL (83-110); Potassium 3.6 mmol/L (3.5-5.1); Sodium 137 mmol/L (136-145)
[2019-04-22] MEDS: Enoxaparin Sodium 40 MG/0.4 ML SYRINGE SC SCH (07:51)
[2019-04-22] MEDS: Aggrenox 200-25mg CAP PO SCH (07:51)
[2019-04-22] MEDS: Polyethylene Glycol 3350 17 GM Packet PO SCH (07:52)
[2019-04-22] MEDS ORDERED: Amlodipine 5 MG TAB PO SCH (09:00)
[2019-04-22] MEDS: Acetaminophen 325 MG TAB PO PRN (10:39)
[2019-04-22 11:44] VITALS: BP 131/75; TEMP 97.9
[2019-04-22] MEDS ORDERED: Fleet Enema 133 ML BOT PR SCH (11:45)
--- NOTE | 2019-04-22 16:34 | DIS ---
DATE OF ADMISSION: 04/18/2019 DATE OF DISCHARGE: 04/22/2019 DISCHARGE DIAGNOSES: Acute right pontine infarct, hypertensive emergency, hypercholesterolemia. CONSULTATIONS: Neurology with Dr. Edmund Peñaloza. PROCEDURES: None. BRIEF HISTORY OF PRESENT ILLNESS: This is an 83-year-old male with a past medical history of CAD status post CABG, hypertension, hyperlipidemia, and upper GI bleed, who presented to the emergency room with slurred speech, unsteady gait, numbness in his left hand. Upon arrival to the emergency room, the patient's blood pressure was 167/88. His CT scan was negative for an acute process. The patient was admitted for stroke workup. HOSPITAL COURSE: Acute right pontine infarct: The patient had an MRI of his brain on the , which showed an acute right pontine infarct. Neurology was consulted and started the patient on Aggrenox. The patient was continued on Zetia for hyperlipidemia given that he gets spasms with atorvastatin. His B12 was elevated. Folate and TSH were normal. A1c was 5.5, and his LDL was 217. The patient had an echocardiogram done, which showed no thrombus. Over the next few days, he was seen by Physical Therapy, Speech and Occupational Therapy who recommended rehab. The patient did have worsening left-sided weakness and currently is unable to move his left arm or left leg. Repeat CT and MRI of the brain on the showed evolution of his stroke and no new stroke. Neurology re-evaluated the patient on the and did not have any further recommendations. At this time, the patient is stable for discharge to rehab. His current deficit includes diplopia and left-sided weakness. Hypertensive emergency: The patient presented to the emergency room with a blood pressure of 167/88 with an acute stroke. Initially, this was kept on the higher side for the first 24 hours. He was resumed on his amlodipine 2.5 mg p.o. daily and this was increased to 5 mg on the due to elevated blood pressure. However , on discharge, I will resume his home medication of Coreg 6.25 twice daily and amlodipine 2.5 mg daily. Blood pressure at the time of discharge is in the 140s. Hyperlipidemia: The patient's cholesterol was 217. His LDL was 145. He will be discharged on Zetia. This should be followed up as an outpatient. DISCHARGE PHYSICAL EXAMINATION: VITAL SIGNS: Temperature 98.6, heart rate 85, respiratory rate 16, O2 saturation 95% on room air, blood pressure 130 systolic over 80. GENERAL: The patient is alert, awake, and oriented x3. He is aware that the date is April 21. EYES: Pupils are reactive to light. The patient does have double vision, however, he does have intact visual acuity. His extraocular muscles are intact. CVS: Regular rate and rhythm with no murmurs, rubs, or gallops. LUNGS: Clear to auscultation bilaterally. ABDOMEN: Positive bowel sounds, soft, nontender, nondistended. EXTREMITIES: No edema. NEURO: Cranial nerves 2 through 12 are intact. He has 5/5 strength in his right upper and lower extremity. He has 0/5 strength on his left upper and left lower extremity. His sensation is 5/5 in all 4 extremities. Reflexes are diminished in the knees. PERTINENT LABORATORY DATA: CBC 04/21: Unremarkable. BMP 04/21: Unremarkable. LFTs 04/16: Normal. Troponin I: Less than 0.010, 0.017, less than 0.010. Lipid panel 04/17: Cholesterol 217, LDL 145, HDL 42, triglyceride 149. Vitamin B12: 1547. Folate: 9.70. TSH: 1.5903. UA 04/16: Negative. IMAGING STUDIES: CT brain 04/16: Shows atrophy and chronic white matter ischemic change. No mass or bleed. Chest x-ray 04/16: Shows no significant process in the chest. Moderate-sized hiatal hernia. MRI brain 04/17: Shows acute right pontine infarction. Carotid Doppler 04/17: No evidence of significant stenosis. CT brain 04/20: Interval CT evolution of the right pontine infarct. MRI brain 04/20: Involving right pontine infarct. No new abnormalities. Echo 04/17: EF 50% to 55%. Diastolic dysfunction. Moderate MR. The aortic valve is sclerotic. Moderate AR. Mild TR. DISCHARGE CONDITION: Stable for discharge to rehab. ACTIVITY: As tolerated. DIET: Heart healthy diet. DISCHARGE MEDICATIONS: New prescriptions: Aggrenox 1 capsule p.o. b.i.d., Protonix 40 mg p.o. daily. All other home medications were resumed. DISCHARGE INSTRUCTIONS: The patient should follow up with his PCP in a week and with Dr. Peñaloza in 2 weeks. He should start taking Aggrenox daily and Protonix daily for history of GI bleed. He can take Lasix as needed for chest congestion and leg swelling. Job ID: [id number] [facility]
[2019-04-23] MEDS ORDERED: Aggrenox 200-25mg CAP PO SCH (09:00)
== END 2019-04-22 15:17 | DRG 65 ==
LOC: ERS 14:08 → 2SE 17:18 → OBSVTOIN 04-18 10:51
PROVIDERS: ADMIT Emergency Medicine; ATTEND Internal Medicine
DX: I63.9 Cerebral infarction, unspecified (principal); I16.1 Hypertensive emergency; G81.94 Hemiplegia, unspecified affecting left nondominant side; E78.00 Pure hypercholesterolemia, unspecified; I25.10 Atherosclerotic heart disease of native coronary artery without angina pectoris; R47.1 Dysarthria and anarthria; G89.29 Other chronic pain; R47.81 Slurred speech; E78.5 Hyperlipidemia, unspecified; R26.81 Unsteadiness on feet; D64.9 Anemia, unspecified; Z95.1 Presence of aortocoronary bypass graft; Z87.11 Personal history of peptic ulcer disease; Z90.49 Acquired absence of other specified parts of digestive tract; Z87.891 Personal history of nicotine dependence; Z88.8 Allergy status to other drugs, medicaments and biological substances
CPT/HCPCS: 36415; 36416; 70450; 70551; 71046; 80048; 80053; 80061; 81003; 82607; 82746; 83036; 83735; 84100; 84443; 84484; 85025; 85027; 93005; 93306; 93880; 96374; J1650; J2405

== ENCOUNTER 2019-09-19 19:43 | Inpatient (IN) | payer MEDICARE, BC, OTHER ==
[2019-09-19] MEDS ORDERED: cefTRIAXone\\ROCEPHIN 2 GM VIAL ONE (20:21)
[2019-09-19 20:56] LABS: Hemoglobin 9.3 g/dL (14.0-18.0); Mean Corpuscular HGB CONC 33.3 g/dL (32.0-36.0); Mean Corpuscular Hemoglobin 31.3 pg (27.0-31.0); Mean Corpuscular Volume 93.9 fL (78.0-98.0); Mean Platelet Volume 6.7 fL (7.4-10.4); Platelet Count 186 thou/uL (130-400); RBC Distribution Width 17.7 % (11.5-14.5); Red Blood Cell (RBC) Count 2.97 mill/uL (4.70-6.10); White Blood Cell (WBC) Count 14.6 thou/uL (4.8-10.8)
[2019-09-19 20:57] LABS: Lactic Acid 1.8 mmol/L (0.5-2.2)
[2019-09-19] MEDS ORDERED: Vancomycin 1.5 GRAM/300 ML BAG 1.5 GM in Premix Bag 1 BAG IVPB SCH (21:00)
[2019-09-19 21:01] LABS: Magnesium 1.6 mg/dL (1.6-2.6); Phosphorus 2.6 mg/dL (2.3-4.7)
[2019-09-19 21:03] LABS: ALT (SGPT) 8 U/L (8-55); AST (SGOT) 10 U/L (5-34); Albumin 3.5 g/dL (3.4-4.8); Alkaline Phosphatase 48 U/L (40-110); Anion Gap 12 mmol/L (10-20); BUN (Urea Nitrogen) 20 mg/dL (8.4-25.7); Bilirubin, Total 0.8 mg/dL (0.2-1.2); Calc. Creatinine Clearance 0 mL/min (70-130); Calcium 8.3 mg/dL (7.8-10.44); Carbon Dioxide 22 mmol/L (23-31); Chloride 104 mmol/L (98-107); Estimated GFR-MDRD 53; Globulin 2.2 g/dL (2.4-3.5); Glucose 140 mg/dL (83-110); Potassium 3.8 mmol/L (3.5-5.1); Protein, Total 5.7 g/dL (5.8-8.1); Sodium 134 mmol/L (136-145)
[2019-09-19 21:13] LABS: Band 7 % (5-11); Hypochromia SLIGHT = 6-15 cells (100X) (0-5/hpf); Lymphocytes 2 % (21-51); MDiff Complete? YES; Monocytes 8 % (0-10); Neutrophil 83 % (42-75); Platelet Morphology Comment Appears Adequate
--- NOTE | 2019-09-19 21:35 | RAD ---
PORTABLE CHEST: Date: 09/19/2019 HISTORY: Syncope. COMPARISON: 06/21/2017 study. FINDINGS: Heart size within normal limits. Postop sternotomy changes are seen. There are some chronic lung zee ges seen. A hiatal hernia is noted. IMPRESSION: No active intrathoracic disease. POS: OFF
--- NOTE | 2019-09-19 21:39 | RAD ---
RIGHT ANKLE 3 VIEWS: Date: 09/19/2019 HISTORY: Ankle pain. FINDINGS: There are arthritic changes noted with some spur formation. No significant joint space narrowing. Wale caneal spurs are noted. Vascular calcifications are seen. IMPRESSION: No acute findings. POS: OFF
[2019-09-19 22:21] LABS: Bacteria/HPF None Seen HPF (None Seen); Bilirubin Negative (Negative); Blood, Urine Negative (Negative); Clarity Clear (Clear); Glucose, Urine (Dipstick) Normal (Negative); Ketone, Urine Negative (Negative); Leukocyte 25 Leu/uL (Negative); Mucous/LPF 2+ LPF (<2+); Nitrite Negative (Negative); Protein, Urine (Dipstick) 30 mg/dL (Neg-Trace); RBC/HPF 0-3 HPF (0-3); Specific Gravity, Urine 1.027 (1.002-1.036); Squamous Epithelial 0-3 HPF (0-3); Urobilinogen Normal mg/dL (Less than 2); pH, Urine 6.5 (5.0-9.0)
[2019-09-19] MEDS ORDERED: Electrolyte Replacement Protoc 1 EACH EACH FS SCH (23:45)
[2019-09-19] MEDS ORDERED: Labetalol HCl 100 MG/20 ML VIAL SLOW IVP PRN (23:56)
[2019-09-19] MEDS ORDERED: Promethazine HCl 12.5 MG in Sodium Chloride 0.9% 50 ML IVPB PRN (23:56)
[2019-09-19] MEDS ORDERED: Acetaminophen 325 MG TAB PO PRN (23:56)
[2019-09-19] MEDS ORDERED: Ondansetron PF 4 MG/2 ML Vial IVP PRN (23:56)
[2019-09-19] MEDS ORDERED: Guaifenesin DM 100-10/5 ML UDCUP PO PRN (23:56)
[2019-09-19] MEDS ORDERED: cloNIDine 0.1 MG TAB PO PRN (23:56)
[2019-09-19] MEDS ORDERED: Morphine 2 MG/ML VIAL SLOW IVP PRN (23:56)
[2019-09-19] MEDS ORDERED: hydrALAZINE 20 MG/ML VIAL SLOW IVP PRN (23:56)
--- NOTE | 2019-09-20 00:17 | PDOC.HHP ---
Hospitalist HPI - History of Present Illness Weakness History of Present Illness: Patient is an 84 year old male with PMH CAD, CABG x 4, HTN, HLD, vertigo, recent CVA (residual L sided weakness) who presents to ED for generalized weakness x 2 days, unable to ambulate today. EMS was called, they reported a fever of 102.5. Patient reports new rash and R ankle swelling and pain, he has never had this happen before, denies history of gout or arthritis/rheumatoid history. Patient denies dysuria, shortness of breath, nausea, vomiting, diarrhea , chest or abdominal pain. In ED, CXR and ankle XR without acute findings, WBC 14.6, uric acid 7.7, UA equivocal. Hemodynamically stable. R ankle was found to be red, swollen, tender, concerning for cellulitis, cultures sent, patient given vancomycin and ceftriaxone and recommended for admission. He was admitted here in April of this year for CVA (acute R pontine infarct), went to IP rehab after workup complete, seen by Dr Peñaloza. He still has residual L sided weakness. Hospitalist ROS - Review of Systems Constitutional: reports: fever, chills, sweats, weakness, malaise Eyes: denies: pain, vision change, conjunctivae inflammation, eyelid inflammation, redness, other ENT: denies: ear pain, ear discharge, nose pain, nose discharge, nose congestion , mouth pain, mouth swelling, throat pain, throat swelling, other Respiratory: denies: cough, dry, shortness of breath, hemoptysis, SOB with excertion, pleuritic pain, sputum, wheezing, other Cardiovascular: denies: chest pain, palpitations, orthopnea, paroxysmal noc. dyspnea, edema, light headedness, other Gastrointestinal: denies: nausea, vomiting, abdominal pain, diarrhea, constipation, melena, hematochezia, other Genitourinary: denies: dysuria, frequency, incontinence, hematuria, retention, other Musculoskeletal: reports: foot pain (R ankle). denies: neck pain, shoulder pain , arm pain, back pain, hand pain, leg pain, other Skin: reports: rash (see HPI) Neurological: reports: weakness (chronic L sided weakness). denies: numbness, incoordination, change in speech, confusion, seizures, other All other systems reviewed; all pertinent +/- noted in HPI/Subj - Medication Medications: asa, iron, ranexa Hospitalist History - Past Medical History Other Medical History: CAD, CABG x 4, HTN, HLD, vertigo, recent CVA (residual L sided weakness) - Past Surgical History Past Surgical History: reports: Appendectomy, Other (hiatal hernia, CABG x 4, Back) - Family History Family History: reports: no pertinent history - Social History Alcohol: reports: None Drugs: reports: none Occupation: Lives in [place] with son, retired [employer] - Exam General Appearance: NAD, awake alert Eye: PERRL, anicteric sclera ENT: normocephalic atraumatic, no oropharyngeal lesions, moist mucosa Neck: supple, symmetric, no JVD, no thyromegaly, no lymphadenopathy, no carotid bruit Heart: RRR, no murmur, no gallops, no rubs, normal peripheral pulses Respiratory: CTAB, no wheezes, no rales, no ronchi, normal chest expansion, no tachypnea, normal percussion Gastrointestinal: soft, non-tender, non-distended, normal bowel sounds, no palpable masses, no hepatomegaly, no splenomegaly, no bruit Extremities: no cyanosis, no clubbing, no edema Skin: normal turgor, no lesions, no rashes Neurological: cranial nerve grossly intact, normal sensation to touch, no weakness, no focal deficits, no new deficit Musculoskeletal: normal tone, normal strength, no muscle wasting Psychiatric: normal affect, normal behavior, A&O x 3 Hospitalist Results - Labs Result Diagrams: 09/19/19 20:31 09/19/19 20:32 Lab results: WBC 14.6 thou/uL (4.8-10.8) H 09/19/19 20:31 Hgb 9.3 g/dL (14.0-18.0) L 09/19/19 20:31 Hct 27.9 % (42.0-52.0) L 09/19/19 20:31 MCV 93.9 fL (78.0-98.0) 09/19/19 20:31 Plt Count 186 thou/uL (130-400) 09/19/19 20:31 Band Neuts % (Manual) 7 % (5-11) 09/19/19 20:31 Sodium 134 mmol/L (136-145) L 09/19/19 20:32 Potassium 3.8 mmol/L (3.5-5.1) 09/19/19 20:32 Chloride 104 mmol/L (98-107) 09/19/19 20:32 Carbon Dioxide 22 mmol/L (23-31) L 09/19/19 20:32 BUN 20 mg/dL (8.4-25.7) 09/19/19 20:32 Creatinine 1.29 mg/dL (0.7-1.3) 09/19/19 20:32 Glucose 140 mg/dL (83-110) H 09/19/19 20:32 Lactic Acid 1.8 mmol/L (0.5-2.2) 09/19/19 20:32 Calcium 8.3 mg/dL (7.8-10.44) 09/19/19 20:32 Total Bilirubin 0.8 mg/dL (0.2-1.2) 09/19/19 20:32 AST 10 U/L (5-34) 09/19/19 20:32 ALT 8 U/L (8-55) 09/19/19 20:32 Alkaline Phosphatase 48 U/L (40-110) 09/19/19 20:32 Troponin I 0.023 ng/mL (< 0.028) 09/19/19 20:32 Serum Total Protein 5.7 g/dL (5.8-8.1) L 09/19/19 20:32 Albumin 3.5 g/dL (3.4-4.8) 09/19/19 20:32 Urine Ketones Negative mg/dL (Negative) 09/19/19 21:43 Urine Blood Negative (Negative) 09/19/19 21:43 Urine Nitrite Negative (Negative) 09/19/19 21:43 Ur Leukocyte Esterase 25 [place]/uL (Negative) A 09/19/19 21:43 Urine RBC 0-3 HPF (0-3) 09/19/19 21:43 Urine WBC 4-6 HPF (0-3) A 09/19/19 21:43 Ur Squamous Epith Cells 0-3 HPF (0-3) 09/19/19 21:43 Urine Bacteria None Seen HPF (None Seen) 09/19/19 21:43 Hospitalist H&P A/P - Plan Plan: Patient is an 84 year old male with PMH CAD, CABG x 4, HTN, HLD, vertigo, recent CVA (residual L sided weakness) who presents to ED for generalized weakness x 2 days. # cellulitis of R lower extremity # sepsis due to cellulitis of lower extremity # metabolic encephalopathy secondary to cellulitis - patient with weakness and unable to ambulate x 2 days, fever of 102.5, new rash and R ankle swelling and pain, denies history of gout or arthritis/ rheumatoid history. In ED, WBC 14.6, uric acid 7.7, R ankle was found to be red , swollen, tender, concerning for cellulitis, cultures sent, patient given vancomycin and ceftriaxone and recommended for admission. - admit to floor - continue vancomycin - consult orthopedics in AM for evaluation for joint aspiration, given elevated uric acid should probably have crystal analysis, cultures etc - follow cultures - PT/OT for weakness # elevated Uric Acid - eval for gout as above # history of CAD/CABG # HLD - no chest pain, continue home meds once med rec complete # recent CVA (acute R pontine infarct) - April of this year went to IP rehab after workup complete, seen by Dr Peñaloza. He still has residual L sided weakness. - PT/OT - case management may be needed for placement based on their eval - continue home meds once med rec complete # history of UGIB - start on protonix, would probably be good to continue this longer term PCP: Dr Ray Neuro: Dr Peñaloza DVT/GI ppx full code
[2019-09-20 01:26] VITALS: BMI 24.5
--- NOTE | 2019-09-20 08:33 | CON ---
DATE OF CONSULTATION: 09/20/2019 CHIEF COMPLAINT: Right ankle pain. HISTORY OF PRESENT ILLNESS: Mr. Tipton is an 84-year-old male, who injured his ankle approximately 3 days ago. He fell from a short step. He thinks he may have twisted his ankle. He had pain at that time. His pain worsened over the next several days. He has been having swelling and some warmth. He is admitted to the hospital currently. He feels that today his pain is somewhat less and he is possibly starting to improve. He does not have a history that he knows of previous ankle pain, arthritis, or gout. Of note, uric acid was found to be elevated at 7.7 on admission. The patient has had generalized weakness as well. He has had a low-grade fever. PAST MEDICAL HISTORY: 1. Coronary artery disease. 2. History of CABG. 3. Hypertension. 4. Hyperlipidemia. 5. Vertigo. 6. Cerebrovascular accident. PAST SURGICAL HISTORY: 1. CABG. 2. Appendectomy. 3. Hernia repair. FAMILY MEDICAL HISTORY: Negative. SOCIAL HISTORY: The patient denies tobacco, alcohol, or drug use. REVIEW OF SYSTEMS: Positive for right ankle pain. Otherwise, negative 10-point review of systems. LABORATORY STUDIES: White blood cell count of 14.6. Uric acid is 7.7. IMAGING STUDIES: X-rays of the right ankle demonstrate no acute fracture. There is soft tissue swelling. PHYSICAL EXAMINATION: VITAL SIGNS: Temperature is 98.4, pulse is 88, respiratory rate is 18, oxygen saturation is 96%, blood pressure is 107/65. GENERAL: He is alert, lying supine, no apparent distress. Breathing comfortably, talkative. MUSCULOSKELETAL: The right ankle has faint erythema and faint warmth to touch. He has good motion of the ankle in flexion and extension without any significant discomfort. He is able to flex and extend the toes. He has normal sensation. No large or boggy effusion. IMPRESSION: Ankle pain most likely secondary to a gout flare versus minor trauma. PLAN: At this point, I do not think the patient has a suspicion for septic ankle. I would not recommend aspiration. He has good range of motion and seems to be improving. I will treat him for gout empirically. He can mobilize weightbearing as tolerated. He can go into a boot if this helps him to mobilize for comfort. We will continue to follow. Job ID: [id number]
[2019-09-20] MEDS ORDERED: Enoxaparin Sodium 40 MG/0.4 ML SYRINGE SC SCH (09:00)
[2019-09-20] MEDS ORDERED: Famotidine 20 MG TAB PO SCH (09:00)
[2019-09-20] MEDS ORDERED: Prevnar 13-Val Conj/PF 0.5 ML SYRINGE IM ONE (09:00)
[2019-09-20] MEDS: Polyethylene Glycol 3350 17 GM Packet PO SCH (09:26)
[2019-09-20] MEDS: Aspirin 81 mg Enteric Coated Tablet PO SCH (09:26)
[2019-09-20] MEDS ORDERED: predniSONE 20 MG TAB PO SCH (13:30)
--- NOTE | 2019-09-20 13:58 | PDOC.HOSPP ---
- Subjective Encounter Date: 09/20/19 Encounter Time: 13:00 Subjective: has pain and swelling of right ankle says he can walk on it - Objective Vital Signs & Weight: Vital Signs (12 hours) Temp Pulse Resp BP Pulse Ox 09/20/19 12:27 99.9 F H 79 20 119/70 92 L 09/20/19 08:35 99.7 F H 87 20 114/64 92 L 09/20/19 05:26 98.4 F Weight Weight 166 lb 0.129 oz Result Diagrams: 09/19/19 20:31 09/19/19 20:32 Hospitalist ROS - Medication Medications: Active Medications Generic Name Dose Route Start Last Admin Trade Name Freq PRN Reason Stop Dose Admin Aspirin 81 mg 09/20/19 09:00 09/20/19 09:26 Ecotrin PO 81 mg DAILY NIKKI Administration Pantoprazole Sodium 40 mg 09/20/19 09:00 09/20/19 09:26 Protonix PO 40 mg DAILY NIKKI Administration Polyethylene Glycol 17 gm 09/20/19 09:00 09/20/19 09:26 Miralax PO 17 gm DAILY NIKKI Administration - Exam General Appearance: awake alert Eye: PERRL, anicteric sclera ENT: no oropharyngeal lesions, moist mucosa Neck: supple, no JVD Heart: RRR, no murmur Respiratory: no wheezes, no rales Gastrointestinal: soft, non-tender, non-distended, normal bowel sounds Extremities - other findings: right ankle edema, erythema and tenderness Neurological: cranial nerve grossly intact, no focal deficits Psychiatric: normal affect, A&O x 3 Hosp A/P (1) Gout attack Code(s): M10.9 - GOUT, UNSPECIFIED Status: Acute Qualifiers: Gout site: ankle Gout etiology: idiopathic Laterality: right Qualified Code(s): M10.071 - Idiopathic gout, right ankle and foot (2) Normochromic anemia Code(s): D64.9 - ANEMIA, UNSPECIFIED Status: Chronic (3) CAD (coronary artery disease) Code(s): I25.10 - ATHSCL HEART DISEASE OF [place] CORONARY ARTERY W/O ANG PCTRS Status: Chronic Qualifiers: Coronary Disease-Associated Artery/Lesion type: bypass graft [place] vs. transplanted heart: [place] heart Associated angina: without angina Qualified Code(s): I25.810 - Atherosclerosis of coronary artery bypass graft(s) without angina pectoris (4) Chronic low back pain Code(s): M54.5 - LOW BACK PAIN; G89.29 - OTHER CHRONIC PAIN Status: Chronic (5) Dyslipidemia Code(s): E78.5 - HYPERLIPIDEMIA, UNSPECIFIED Status: Chronic (6) H/O four vessel coronary artery bypass graft Code(s): Z95.1 - PRESENCE OF AORTOCORONARY BYPASS GRAFT Status: Chronic (7) Hypertension Code(s): I10 - ESSENTIAL (PRIMARY) HYPERTENSION Status: Chronic Qualifiers: Hypertension type: essential hypertension Qualified Code(s): I10 - Essential (primary) hypertension - Plan was evaluated by this am appears to have gout initial attack, will add colchicine bid, watch for diarrhea PT to mobilize as tolerated dc antibiotics, no septic arthritis per ortho, not sure if he has gout with infection in the ankle dc planning continue home meds as above
[2019-09-20 14:49] LABS: SARS-CoV-2 MS2 Positive; SARS-CoV-2 N Gene Negative; SARS-CoV-2 S Gene Negative; SARS-CoV-2 by NAA Not Detected (NotDetected); SARS-CoV-2 orf1ab Negative
[2019-09-20] MEDS: Colchicine 0.6 MG TAB PO SCH (19:48)
[2019-09-20] MEDS: Ferrous Sulfate 325 MG TAB PO SCH (19:48)
[2019-09-20] MEDS ORDERED: Vancomycin HCl 1.25 GM in Sodium Chloride 0.9% 250 ML 250 ML IVPB SCH (23:00)
[2019-09-21] MEDS: Colchicine 0.6 MG TAB PO SCH ×2 (07:52→20:42)
[2019-09-21] MEDS: Ferrous Sulfate 325 MG TAB PO SCH ×2 (07:52→20:42)
[2019-09-21] MEDS: Amlodipine 5 MG TAB PO SCH (07:52)
[2019-09-21] MEDS: Aspirin 81 mg Enteric Coated Tablet PO SCH (07:52)
[2019-09-21] MEDS: Polyethylene Glycol 3350 17 GM Packet PO SCH (07:52)
[2019-09-21] MEDS: Enoxaparin Sodium 40 MG/0.4 ML SYRINGE SC SCH (07:53)
[2019-09-21 08:08] LABS: #Lymphocytes 0.6 thou/uL (1.20-3.40); #Monocytes 0.8 thou/uL (0.11-0.59); #Neutrophils 9.7 thou/uL (1.40-6.50); %Lymphocytes 5.7 % (21.0-51.0); %Monocytes 6.8 % (0.0-10.0); %Neutrophils 87.4 % (42.0-75.0); Hemoglobin 8.9 g/dL (14.0-18.0); Mean Corpuscular HGB CONC 33.6 g/dL (32.0-36.0); Mean Corpuscular Hemoglobin 31.5 pg (27.0-31.0); Mean Corpuscular Volume 93.8 fL (78.0-98.0); Mean Platelet Volume 7.1 fL (7.4-10.4); Platelet Count 153 thou/uL (130-400); RBC Distribution Width 16.8 % (11.5-14.5); Red Blood Cell (RBC) Count 2.81 mill/uL (4.70-6.10); White Blood Cell (WBC) Count 11.1 thou/uL (4.8-10.8)
[2019-09-21 08:13] LABS: Anion Gap 10 mmol/L (10-20); BUN (Urea Nitrogen) 25 mg/dL (8.4-25.7); Calc. Creatinine Clearance 61 mL/min (70-130); Calcium 8.3 mg/dL (7.8-10.44); Carbon Dioxide 24 mmol/L (23-31); Chloride 106 mmol/L (98-107); Estimated GFR-MDRD 75; Glucose 152 mg/dL (83-110); Sodium 136 mmol/L (136-145)
--- NOTE | 2019-09-21 12:26 | PDOC.HOSPP ---
- Subjective Encounter Date: 09/21/19 Encounter Time: 09:40 Subjective: right ankle pain is slightly better is awaiting PT to bring a walker for him to ambulate - Objective Vital Signs & Weight: Vital Signs (12 hours) Temp Pulse Resp BP BP Pulse Ox 09/21/19 11:32 99.2 F 76 20 135/82 94 L 09/21/19 07:52 74 09/21/19 07:33 98.0 F 74 18 137/78 96 Weight Weight 166 lb 0.129 oz Result Diagrams: 09/21/19 07:31 09/21/19 07:32 Hospitalist ROS - Medication Medications: Active Medications Generic Name Dose Route Start Last Admin Trade Name Freq PRN Reason Stop Dose Admin Amlodipine Besylate 5 mg 09/21/19 09:00 09/21/19 07:52 Norvasc PO 5 mg DAILY NIKKI Administration Aspirin 81 mg 09/20/19 09:00 09/21/19 07:52 Ecotrin PO 81 mg DAILY NIKKI Administration Colchicine 0.6 mg 09/20/19 21:00 09/21/19 07:52 Colchicine PO 0.6 mg BID NIKKI Administration Enoxaparin Sodium 40 mg 09/21/19 09:00 09/21/19 07:53 Lovenox SC 40 mg 0900 NIKKI Administration Ferrous Sulfate 325 mg 09/20/19 21:00 09/21/19 07:52 Feosol PO 325 mg BID NIKKI Administration Pantoprazole Sodium 40 mg 09/20/19 09:00 09/21/19 07:52 Protonix PO 40 mg DAILY NIKKI Administration Polyethylene Glycol 17 gm 09/20/19 09:00 09/21/19 07:52 Miralax PO 17 gm DAILY NIKKI Administration - Exam General Appearance: awake alert Eye: PERRL, anicteric sclera ENT: no oropharyngeal lesions, moist mucosa Neck: supple, no JVD Heart: RRR, no murmur Respiratory: no wheezes, no rales Gastrointestinal: soft, non-tender, non-distended, normal bowel sounds Extremities: no cyanosis Extremities - other findings: right ankle has edema, erythema and tender to active rom Neurological: cranial nerve grossly intact, no focal deficits Psychiatric: normal affect, A&O x 3 Hosp A/P (1) Gout attack Code(s): M10.9 - GOUT, UNSPECIFIED Status: Acute Qualifiers: Gout site: ankle Gout etiology: idiopathic Laterality: right Qualified Code(s): M10.071 - Idiopathic gout, right ankle and foot (2) Normochromic anemia Code(s): D64.9 - ANEMIA, UNSPECIFIED Status: Chronic (3) CAD (coronary artery disease) Code(s): I25.10 - ATHSCL HEART DISEASE OF [place] CORONARY ARTERY W/O ANG PCTRS Status: Chronic Qualifiers: Coronary Disease-Associated Artery/Lesion type: bypass graft [place] vs. transplanted heart: [place] heart Associated angina: without angina Qualified Code(s): I25.810 - Atherosclerosis of coronary artery bypass graft(s) without angina pectoris (4) Chronic low back pain Code(s): M54.5 - LOW BACK PAIN; G89.29 - OTHER CHRONIC PAIN Status: Chronic (5) Dyslipidemia Code(s): E78.5 - HYPERLIPIDEMIA, UNSPECIFIED Status: Chronic (6) H/O four vessel coronary artery bypass graft Code(s): Z95.1 - PRESENCE OF AORTOCORONARY BYPASS GRAFT Status: Chronic (7) Hypertension Code(s): I10 - ESSENTIAL (PRIMARY) HYPERTENSION Status: Chronic Qualifiers: Hypertension type: essential hypertension Qualified Code(s): I10 - Essential (primary) hypertension - Plan was evaluated by 09/19 appears to have gout/pseudo gout initial attack, is on colchicine bid, no diarrhea PT to mobilize as tolerated off antibiotics, no septic arthritis per ortho, not sure if he has gout with infection in the ankle dc planning either swing bed/rehab or home with HH and PT continue home meds as above
[2019-09-22 07:12] LABS: #Eosinphils 0.2 thou/uL (0.0-0.7); #Lymphocytes 0.8 thou/uL (1.20-3.40); #Monocytes 0.5 thou/uL (0.11-0.59); #Neutrophils 5.6 thou/uL (1.40-6.50); %Basophils 0.2 % (0.0-1.0); %Eosinophils 2.1 % (0.0-10.0); %Lymphocytes 11.5 % (21.0-51.0); %Monocytes 7.5 % (0.0-10.0); %Neutrophils 78.6 % (42.0-75.0); Hemoglobin 9.4 g/dL (14.0-18.0); Mean Corpuscular HGB CONC 32.4 g/dL (32.0-36.0); Mean Corpuscular Hemoglobin 30.3 pg (27.0-31.0); Mean Corpuscular Volume 93.4 fL (78.0-98.0); Mean Platelet Volume 7.4 fL (7.4-10.4); Platelet Count 188 thou/uL (130-400); RBC Distribution Width 16.6 % (11.5-14.5); Red Blood Cell (RBC) Count 3.11 mill/uL (4.70-6.10); White Blood Cell (WBC) Count 7.2 thou/uL (4.8-10.8)
[2019-09-22 07:27] LABS: Anion Gap 12 mmol/L (10-20); BUN (Urea Nitrogen) 22 mg/dL (8.4-25.7); Calc. Creatinine Clearance 62 mL/min (70-130); Calcium 8.9 mg/dL (7.8-10.44); Carbon Dioxide 23 mmol/L (23-31); Chloride 106 mmol/L (98-107); Estimated GFR-MDRD 76; Glucose 105 mg/dL (83-110); Potassium 3.8 mmol/L (3.5-5.1); Sodium 137 mmol/L (136-145)
[2019-09-22] MEDS: Amlodipine 5 MG TAB PO SCH (08:31)
[2019-09-22] MEDS: Colchicine 0.6 MG TAB PO SCH (08:32)
[2019-09-22] MEDS: Ferrous Sulfate 325 MG TAB PO SCH ×2 (08:32→20:24)
[2019-09-22] MEDS: Polyethylene Glycol 3350 17 GM Packet PO SCH (08:36)
[2019-09-22] MEDS: Aspirin 81 mg Enteric Coated Tablet PO SCH (09:05)
[2019-09-22] MEDS: Enoxaparin Sodium 40 MG/0.4 ML SYRINGE SC SCH (09:05)
[2019-09-22] MEDS ORDERED: Naproxen 500 MG TAB PO PRN (10:47)
--- NOTE | 2019-09-22 10:51 | PDOC.HOSPP ---
- Subjective Encounter Date: 09/22/19 (f/u ankle pain) Encounter Time: 10:48 Subjective: Pt c/o increasing soreness today, difficulty with ambulation because of it. He reports taking aleve at home for pain - states tylenol does not work. c/o food - states he is not getting enough and it doesnt taste good - states he eats a regular diet at home. The day prior to admission pt reports feeling weak, sliding down and his foot was caught under something. He states that he had to get his foot out of his shoe because it was stuck. Reports the weakness continued through the day - he was in bed, then the following day was unable to get out of bed. - Objective Vital Signs & Weight: Vital Signs (12 hours) Temp Pulse Resp BP Pulse Ox 09/22/19 08:31 90 09/22/19 07:39 98.3 F 90 20 155/79 H 93 L Weight Weight 166 lb 0.129 oz Result Diagrams: 09/22/19 06:23 09/22/19 06:23 Hospitalist ROS - Medication Medications: Active Medications Generic Name Dose Route Start Last Admin Trade Name Jocelyne PRN Reason Stop Dose Admin Amlodipine Besylate 5 mg 09/21/19 09:00 09/22/19 08:31 Norvasc PO 5 mg DAILY NIKKI Administration Aspirin 81 mg 09/20/19 09:00 09/22/19 09:05 Ecotrin PO Not Given DAILY NIKKI Ferrous Sulfate 325 mg 09/20/19 21:00 09/22/19 08:32 Feosol PO 325 mg BID NIKKI Administration Pantoprazole Sodium 40 mg 09/20/19 09:00 09/22/19 08:32 Protonix PO 40 mg DAILY NIKKI Administration Polyethylene Glycol 17 gm 09/20/19 09:00 09/22/19 08:36 Miralax PO 17 gm DAILY NIKKI Administration - Exam General Appearance: NAD Respiratory: CTAB, no wheezes, no rales, no ronchi Gastrointestinal: soft, non-tender, non-distended, normal bowel sounds Extremities: no cyanosis, no clubbing, no edema Extremities - other findings: ttp along the right ankle, no palpable abnormalities, no erythema Hosp A/P (1) Right ankle pain Code(s): M25.571 - PAIN IN RIGHT ANKLE AND JOINTS OF RIGHT FOOT Status: Acute Qualifiers: Chronicity: acute Qualified Code(s): M25.571 - Pain in right ankle and joints of right foot (2) History of stroke Code(s): Z86.73 - PRSNL HX OF TIA (TIA), AND CEREB INFRC W/O RESID DEFICITS Status: Chronic (3) Generalized weakness Code(s): R53.1 - WEAKNESS Status: Acute (4) CAD (coronary artery disease) Code(s): I25.10 - ATHSCL HEART DISEASE OF [place] CORONARY ARTERY W/O ANG PCTRS Status: Chronic Qualifiers: Coronary Disease-Associated Artery/Lesion type: bypass graft [place] vs. transplanted heart: [place] heart Associated angina: without angina Qualified Code(s): I25.810 - Atherosclerosis of coronary artery bypass graft(s) without angina pectoris (5) Chronic low back pain Code(s): M54.5 - LOW BACK PAIN; G89.29 - OTHER CHRONIC PAIN Status: Chronic Qualifiers: Back pain laterality: unspecified (6) Dyslipidemia Code(s): E78.5 - HYPERLIPIDEMIA, UNSPECIFIED Status: Chronic - Plan ankle pain - attributed to gout/pseudogout here. - based on history, suspect also ligamentous injury from reported fall - decrease colchicine to daily - add prn naprosyn - pt reports he takes aleve at home for pain and he declines tylenol - ankle brace - not stable with ambulation = not safe for discharge, and he declines any transitional care Change diet to regular per his request continue pt/ot hold ranexa due to colchicine - pt asx dvt prophy - lovenox gi prophy - protonix due to steroids a few days ago code status full anticipate d/c in the next 1-2 days if able to safely ambulate with walker and pain controlled reviewed plan of care with patient, no questions or further needs at end of eval
[2019-09-23 06:09] LABS: Hemoglobin 8.7 g/dL (14.0-18.0); Mean Corpuscular HGB CONC 33.2 g/dL (32.0-36.0); Mean Corpuscular Hemoglobin 30.9 pg (27.0-31.0); Mean Corpuscular Volume 93.3 fL (78.0-98.0); Mean Platelet Volume 6.8 fL (7.4-10.4); Platelet Count 188 thou/uL (130-400); RBC Distribution Width 16.5 % (11.5-14.5); Red Blood Cell (RBC) Count 2.82 mill/uL (4.70-6.10); White Blood Cell (WBC) Count 5.6 thou/uL (4.8-10.8)
[2019-09-23 06:24] LABS: Anion Gap 10 mmol/L (10-20); BUN (Urea Nitrogen) 15 mg/dL (8.4-25.7); Calc. Creatinine Clearance 65 mL/min (70-130); Calcium 8.3 mg/dL (7.8-10.44); Carbon Dioxide 26 mmol/L (23-31); Chloride 104 mmol/L (98-107); Estimated GFR-MDRD 80; Glucose 112 mg/dL (83-110); Potassium 3.7 mmol/L (3.5-5.1); Sodium 136 mmol/L (136-145)
[2019-09-23 06:41] LABS: Band 4 % (5-11); Eosinophils 4 % (0-10); Lymphocytes 11 % (21-51); MDiff Complete? YES; Monocytes 7 % (0-10); Neutrophil 74 % (42-75)
[2019-09-23] MEDS: HYDROcodone/Acetaminophen 5/325 mg Tablet PO PRN (07:56)
[2019-09-23] MEDS: Ferrous Sulfate 325 MG TAB PO SCH ×2 (07:58→20:27)
[2019-09-23] MEDS: Colchicine 0.6 MG TAB PO SCH (07:58)
[2019-09-23] MEDS: Amlodipine 5 MG TAB PO SCH (07:58)
[2019-09-23] MEDS: Aspirin 81 mg Enteric Coated Tablet PO SCH (08:00)
[2019-09-23] MEDS: Polyethylene Glycol 3350 17 GM Packet PO SCH (08:02)
--- NOTE | 2019-09-23 09:53 | PDOC.HOSPP ---
- Subjective Encounter Date: 09/23/19 (f/u ankle pain) Encounter Time: 09:52 Subjective: Pt c/o no change in pain and states that no one is working with him, that he is laying in bed. He also c/o the food, both quantity and quality - did not notice any difference wiht a change to regular diet. - Objective Vital Signs & Weight: Vital Signs (12 hours) Temp Pulse Resp BP BP Pulse Ox 09/23/19 08:18 99.1 F 104 H 18 155/80 H 95 09/23/19 07:58 89 135/82 Weight Weight 166 lb 0.129 oz Result Diagrams: 09/23/19 05:45 09/23/19 05:45 Hospitalist ROS - Medication Medications: Active Medications Generic Name Dose Route Start Last Admin Trade Name Freq PRN Reason Stop Dose Admin Hydrocodone Bitart/Acetaminophen 1 tab 09/19/19 23:56 09/23/19 07:56 [place] 5/325 PO 1 tab Q4H PRN Administration Moderate Pain (4-6) Amlodipine Besylate 5 mg 09/21/19 09:00 09/23/19 07:58 Norvasc PO 5 mg DAILY NIKKI Administration Aspirin 81 mg 09/20/19 09:00 09/23/19 08:00 Ecotrin PO Not Given DAILY NIKKI Colchicine 0.6 mg 09/23/19 09:00 09/23/19 07:58 Colchicine PO 0.6 mg DAILY NIKKI Administration Ferrous Sulfate 325 mg 09/20/19 21:00 09/23/19 07:58 Feosol PO 325 mg BID NIKKI Administration Pantoprazole Sodium 40 mg 09/20/19 09:00 09/23/19 07:58 Protonix PO 40 mg DAILY NIKKI Administration Polyethylene Glycol 17 gm 09/20/19 09:00 09/23/19 08:02 Miralax PO 17 gm DAILY NIKKI Administration Sodium Chloride 10 ml 09/22/19 21:00 09/23/19 08:02 Flush - Normal Saline IVF Not Given Q12HR NIKKI - Exam General Appearance: NAD Heart: RRR, no murmur Respiratory: CTAB, no wheezes Gastrointestinal: soft, non-tender, non-distended, normal bowel sounds Musculoskeletal - other findings: exam unchanged- no erythema/edema of right ankle Hosp A/P (1) Right ankle pain Code(s): M25.571 - PAIN IN RIGHT ANKLE AND JOINTS OF RIGHT FOOT Status: Acute Qualifiers: Chronicity: acute Qualified Code(s): M25.571 - Pain in right ankle and joints of right foot (2) History of stroke Code(s): Z86.73 - PRSNL HX OF TIA (TIA), AND CEREB INFRC W/O RESID DEFICITS Status: Chronic (3) Generalized weakness Code(s): R53.1 - WEAKNESS Status: Acute (4) CAD (coronary artery disease) Code(s): I25.10 - ATHSCL HEART DISEASE OF [place] CORONARY ARTERY W/O ANG PCTRS Status: Chronic Qualifiers: Coronary Disease-Associated Artery/Lesion type: bypass graft [place] vs. transplanted heart: [place] heart Associated angina: without angina Qualified Code(s): I25.810 - Atherosclerosis of coronary artery bypass graft(s) without angina pectoris (5) Chronic low back pain Code(s): M54.5 - LOW BACK PAIN; G89.29 - OTHER CHRONIC PAIN Status: Chronic Qualifiers: Back pain laterality: unspecified (6) Dyslipidemia Code(s): E78.5 - HYPERLIPIDEMIA, UNSPECIFIED Status: Chronic - Plan ankle pain - attributed to gout/pseudogout here, with likely a ligamentous injury from fall prior to admission - has received one dose of prednisone, started on bid colchicine which was changed to daily starting today - naprosyn prn for pain - ankle boot is in the room - will see if PT can assist with putting this on, gait training and evaluation Offer supplements for meals to improve nutrition Anemia - uncertain etiology, stable here and will need outpatient follow up continue pt/ot dvt prophy - lovenox gi prophy - will d/c as no longer on steroids code status full anticipate d/c when pain is controlled and able to ambulate enough for adl's at home. Pt declines any type of transitional care. Addendum 17:17 - pt's RN reports he is unsteady with gait/ankle boot in place. Re-evaluate tomorrow for consideration of d/c to home.
[2019-09-24] MEDS: HYDROcodone/Acetaminophen 5/325 mg Tablet PO PRN ×2 (06:14→17:58)
[2019-09-24] MEDS: Colchicine 0.6 MG TAB PO SCH (09:47)
[2019-09-24] MEDS: Amlodipine 5 MG TAB PO SCH (09:48)
[2019-09-24] MEDS: Ferrous Sulfate 325 MG TAB PO SCH ×2 (09:49→20:34)
[2019-09-24] MEDS: Polyethylene Glycol 3350 17 GM Packet PO SCH (09:50)
[2019-09-24] MEDS: Aspirin 81 mg Enteric Coated Tablet PO SCH (09:52)
[2019-09-24] MEDS ORDERED: guaiFENesin ER 600 MG TAB PO PRN (10:51)
[2019-09-24] MEDS ORDERED: Loratadine 10 MG TAB PO PRN (10:51)
--- NOTE | 2019-09-24 10:52 | PDOC.HOSPP ---
- Subjective Encounter Date: 09/24/19 (f/u ankle pain) Encounter Time: 10:51 Subjective: 84 y/o male with hx of stroke, htn, cad who was admitted for ankle pain. Pt initially tx for septic arthitis. then eval by Ortho and dx with gout/ pseudogout and given 1 dose of prednisone and started on colchicine. Antibiotics were discontinued. Ortho rx an ankle boot which he wore yesterday. Pt denies any change in pain. Was in the boot yesterday, difficulty with ambulating secondary to pain. Desires to go to a SNF as transition to home. Also c/o long standing cough and requests medication for this. - Objective Vital Signs & Weight: Vital Signs (12 hours) Temp Pulse Resp BP BP Pulse Ox 09/24/19 09:48 94 128/72 09/24/19 07:23 98.9 F 91 20 151/81 H 94 L Weight Weight 166 lb 0.129 oz I&O: 09/23/19 09/24/19 09/25/19 06:59 06:59 06:59 Intake Total 1240 Balance 1240 Result Diagrams: 09/23/19 05:45 09/23/19 05:45 Hospitalist ROS - Medication Medications: Active Medications Generic Name Dose Route Start Last Admin Trade Name Freq PRN Reason Stop Dose Admin Hydrocodone Bitart/Acetaminophen 1 tab 09/19/19 23:56 09/24/19 06:14 [place] 5/325 PO 1 tab Q4H PRN Administration Moderate Pain (4-6) Amlodipine Besylate 5 mg 09/21/19 09:00 09/24/19 09:48 Norvasc PO 5 mg DAILY NIKKI Administration Ferrous Sulfate 325 mg 09/20/19 21:00 09/24/19 09:49 Feosol PO 325 mg BID NIKKI Administration Polyethylene Glycol 17 gm 09/20/19 09:00 09/24/19 09:50 Miralax PO 17 gm DAILY NIKKI Administration Sodium Chloride 10 ml 09/22/19 21:00 09/24/19 09:50 Flush - Normal Saline IVF 10 ml Q12HR NIKKI Administration - Exam General Appearance: NAD Heart: RRR, no murmur Respiratory: CTAB, no wheezes, no rales, no ronchi Gastrointestinal: soft, non-tender, non-distended, normal bowel sounds Extremities - other findings: erythema/edema RLE lat aspect Psychiatric: normal affect Hosp A/P (1) Right ankle pain Code(s): M25.571 - PAIN IN RIGHT ANKLE AND JOINTS OF RIGHT FOOT Status: Acute Qualifiers: Chronicity: acute Qualified Code(s): M25.571 - Pain in right ankle and joints of right foot (2) History of stroke Code(s): Z86.73 - PRSNL HX OF TIA (TIA), AND CEREB INFRC W/O RESID DEFICITS Status: Chronic (3) Generalized weakness Code(s): R53.1 - WEAKNESS Status: Acute (4) CAD (coronary artery disease) Code(s): I25.10 - ATHSCL HEART DISEASE OF [place] CORONARY ARTERY W/O ANG PCTRS Status: Chronic Qualifiers: Coronary Disease-Associated Artery/Lesion type: bypass graft [place] vs. transplanted heart: [place] heart Associated angina: without angina Qualified Code(s): I25.810 - Atherosclerosis of coronary artery bypass graft(s) without angina pectoris (5) Chronic low back pain Code(s): M54.5 - LOW BACK PAIN; G89.29 - OTHER CHRONIC PAIN Status: Chronic Qualifiers: Back pain laterality: unspecified (6) Dyslipidemia Code(s): E78.5 - HYPERLIPIDEMIA, UNSPECIFIED Status: Chronic - Plan Change in exam today - erythema/edema that is new. - add ceftriaxone and cover for infection - check US both for deeper infection in the lat aspect of RLE as well as rule out DVT - d/c colchicine - should have received adequate tx Home meds reconcilled - resume ranexa, continue amlodipine Anemia - uncertain etiology, stable here and will need outpatient follow up continue pt/ot dvt prophy - reviewed orders and do not see that lovenox was ordered- will order. gi prophy - not indicated code status full d/c on hold with addition of abx and ultrasound order anticipate ready for SNF in the next 1-2 days depending on results and response to tx.
--- NOTE | 2019-09-24 12:26 | ULT ---
Ultrasound of theright lateral lower le09/24/2019 COMPARISON:None available HISTORY:Erythema, edema TECHNIQUE: Multiplanar grayscale sonographic imaging of the"right lateral lower leg" FINDINGS:Focused ultrasound in the area of concern demonstrates hypodensity within the subcutaneous f at in the area of palpable concern at consistent with edema which may be related to trauma or infection. No well-defined drainable abscess is noted. If clinically warranted, findings could be bes t assessed via MRI with contrast. IMPRESSION:Hypodensity infiltrating the subcutaneous adipose layer suggesting edema on the basis of t rauma or infection. No drainable abscess is seen on this exam.
--- NOTE | 2019-09-24 12:54 | ULT ---
ULTRASOUND DOPPLER DUPLEX VENOUS RIGHT LOWER EXTREMITY: DATE: 09/24/2019 HISTORY: 84-year-old male with right lower extremity pain and swelling. TECHNIQUE: Grayscale, color-flow, and spectral analysis, of major veins of right lower extremity. FINDINGS: There is demonstration of blood flow with normal compressibility, of the right common femoral, profun da femoral, greater saphenous, femoral, popliteal, and posterior tibial, veins. IMPRESSION: Negative. No deep venous thrombosis of right lower extremity.
[2019-09-24] MEDS: cefTRIAXone\\ROCEPHIN 1 GM in Sodium Chloride 0.9% 100 ML IVPB SCH (15:19)
[2019-09-24] MEDS: Aggrenox 200-25mg CAP PO SCH (20:34)
[2019-09-25] MEDS: HYDROcodone/Acetaminophen 5/325 mg Tablet PO PRN ×2 (03:20→17:07)
[2019-09-25 05:32] LABS: #Eosinphils 0.1 thou/uL (0.0-0.7); #Lymphocytes 0.9 thou/uL (1.20-3.40); #Monocytes 0.7 thou/uL (0.11-0.59); #Neutrophils 4.5 thou/uL (1.40-6.50); %Basophils 0.3 % (0.0-1.0); %Eosinophils 2.2 % (0.0-10.0); %Lymphocytes 14.6 % (21.0-51.0); %Monocytes 10.5 % (0.0-10.0); %Neutrophils 72.5 % (42.0-75.0); Hemoglobin 9.3 g/dL (14.0-18.0); Mean Corpuscular HGB CONC 32.9 g/dL (32.0-36.0); Mean Corpuscular Hemoglobin 30.7 pg (27.0-31.0); Mean Corpuscular Volume 93.3 fL (78.0-98.0); Mean Platelet Volume 6.9 fL (7.4-10.4); Platelet Count 242 thou/uL (130-400); RBC Distribution Width 16.5 % (11.5-14.5); Red Blood Cell (RBC) Count 3.02 mill/uL (4.70-6.10); White Blood Cell (WBC) Count 6.2 thou/uL (4.8-10.8)
[2019-09-25 06:51] LABS: Anion Gap 9 mmol/L (10-20); BUN (Urea Nitrogen) 18 mg/dL (8.4-25.7); Calc. Creatinine Clearance 65 mL/min (70-130); Calcium 8.8 mg/dL (7.8-10.44); Carbon Dioxide 27 mmol/L (23-31); Chloride 102 mmol/L (98-107); Estimated GFR-MDRD 80; Glucose 114 mg/dL (83-110); Potassium 4.1 mmol/L (3.5-5.1); Sodium 134 mmol/L (136-145)
[2019-09-25] MEDS: Ferrous Sulfate 325 MG TAB PO SCH ×2 (08:32→20:40)
[2019-09-25] MEDS: Amlodipine 5 MG TAB PO SCH (08:32)
[2019-09-25] MEDS: Enoxaparin Sodium 40 MG/0.4 ML SYRINGE SC SCH (08:34)
[2019-09-25] MEDS: Aggrenox 200-25mg CAP PO SCH ×2 (08:34→20:40)
[2019-09-25] MEDS: Polyethylene Glycol 3350 17 GM Packet PO SCH (08:34)
[2019-09-25] MEDS: cefTRIAXone\\ROCEPHIN 1 GM in Sodium Chloride 0.9% 100 ML IVPB SCH (12:13)
[2019-09-25] MEDS ORDERED: Lidocaine 1% (PF) 30 ML VIAL ONE ×2 (13:14→13:15)
--- NOTE | 2019-09-25 14:43 | RAD ---
XR Ankle Rt 3 View STANDARD INDICATION: Ankle injury. COMPARISON: September 19, 2019 FINDINGS: Bones: Intact. Ankle mortise: Symmetric. Talar Dome: Intact. Subtalar joint: Normal. Visualized hindfoot: There is enthesopathic change of the posterior and plantar calcaneus. Periarticular soft tissues: There are [place]cke[place] calcifications within the soft tissues. IMPRESSION: 1. No acute fracture or subluxation demonstrated.
--- NOTE | 2019-09-25 14:48 | PRG ---
DATE OF SERVICE: 09/25/2019 SUBJECTIVE: Francisco is an 84-year-old male, who has been admitted by the medicine team for persistent right ankle pain after very low energy, injury and fall. The ankle swelled up. Dr. Callaway saw the patient and concluded is most likely gout based on clinical presentation. He has been treated for gout now by the Medicine team for the last 5 days and he has failed to appreciably improve. We have been asked to see the patient again because of failure to improve and still with redness and swelling of the ankle. Rocephin was started empirically yesterday. His white cell count is 6.2 and has come down from 14.6 and 11.0 over the last 3 days. PHYSICAL EXAMINATION: Visual inspection of the right ankle demonstrates to have tenderness at the apex, the lateral malleolus and he has a palpable joint effusion, it is not severe, but he has erythema along the skin encompassing the lateral malleolus and anterior joint and little bit of the retromalleolar area on the lateral side. Tissue is kind of full and edematous. IMPRESSION: Right ankle effusion with erythema, etiology unclear. PLAN: 1. The risks, benefits, options, alternatives, and rationale for proceeding with ankle diagnostic arthrocentesis with lidocaine, intra-articular lavage has been explained in great detail with the patient and he is ready to proceed. All questions were answered. No guarantee of outcome was stated or implied. 2. Please see procedure note. Job ID: [id number]
--- NOTE | 2019-09-25 16:26 | PDOC.HOSPP ---
- Subjective Encounter Date: 09/25/19 Subjective: Patient reports he continues to have some pain in the right ankle area. He reports that it is not really improved since admission. He reports no history of prior gout. - Objective Vital Signs & Weight: Vital Signs (12 hours) Temp Pulse Resp BP BP Pulse Ox 09/25/19 16:21 97.8 F 94 18 110/70 92 L 09/25/19 11:38 98 F 82 18 117/61 93 L 09/25/19 08:32 85 143/85 H 09/25/19 08:00 98.5 F 85 20 143/85 H 94 L Weight Weight 166 lb 0.129 oz I&O: 09/24/19 09/25/19 09/26/19 06:59 06:59 06:59 Intake Total 1240 Output Total 300 Balance 1240 -300 Result Diagrams: 09/25/19 05:11 09/25/19 05:11 Hospitalist ROS - Medication Medications: Active Medications Generic Name Dose Route Start Last Admin Trade Name Freq PRN Reason Stop Dose Admin Hydrocodone Bitart/Acetaminophen 1 tab 09/19/19 23:56 09/25/19 03:20 [place] 5/325 PO 1 tab Q4H PRN Administration Moderate Pain (4-6) Amlodipine Besylate 5 mg 09/21/19 09:00 09/25/19 08:32 Norvasc PO 5 mg DAILY NIKKI Administration Dipyridamole/Aspirin 1 cap 09/24/19 21:00 09/25/19 08:34 Aggrenox PO 1 cap BID NIKKI Administration Enoxaparin Sodium 40 mg 09/25/19 09:00 09/25/19 08:34 Lovenox SC 40 mg 0900 NIKKI Administration Ferrous Sulfate 325 mg 09/20/19 21:00 09/25/19 08:32 Feosol PO 325 mg BID NIKKI Administration Guaifenesin 600 mg 09/24/19 10:51 09/25/19 03:20 Mucinex PO 600 mg Q12H PRN Administration Cough Ceftriaxone Sodium 1 gm/ 100 mls @ 200 mls/hr 09/24/19 11:00 09/25/19 12:13 Sodium Chloride IVPB 100 mls 1100 NIKKI Administration Pantoprazole Sodium 40 mg 09/25/19 09:00 09/25/19 12:13 Protonix PO 40 mg DAILY NIKKI Administration Polyethylene Glycol 17 gm 09/20/19 09:00 09/25/19 08:34 Miralax PO 17 gm DAILY NIKKI Administration Ranolazine 500 mg 09/24/19 21:00 09/25/19 08:32 Ranexa PO 500 mg BID NIKKI Administration Sodium Chloride 10 ml 09/22/19 21:00 09/25/19 08:47 Flush - Normal Saline IVF 10 ml Q12HR NIKKI Administration - Exam General Appearance: NAD, awake alert Heart: RRR, no murmur, no gallops, no rubs, normal peripheral pulses Respiratory: CTAB, no wheezes, no rales, no ronchi, normal chest expansion, no tachypnea, normal percussion Gastrointestinal: soft, non-tender, non-distended, normal bowel sounds, no palpable masses, no hepatomegaly, no splenomegaly, no bruit Extremities: no cyanosis, no clubbing Extremities - other findings: Trace edema, right lateral malleolus erythema extending prox. Mild calor Musculoskeletal: normal tone Psychiatric: normal affect, normal behavior, A&O x 3 Hosp A/P (1) Gout attack Code(s): M10.9 - GOUT, UNSPECIFIED Status: Acute Qualifiers: Gout site: ankle Gout etiology: idiopathic Laterality: right Qualified Code(s): M10.071 - Idiopathic gout, right ankle and foot (2) Right ankle pain Code(s): M25.571 - PAIN IN RIGHT ANKLE AND JOINTS OF RIGHT FOOT Status: Acute Qualifiers: Chronicity: acute Qualified Code(s): M25.571 - Pain in right ankle and joints of right foot (3) History of stroke Code(s): Z86.73 - PRSNL HX OF TIA (TIA), AND CEREB INFRC W/O RESID DEFICITS Status: Chronic (4) CAD (coronary artery disease) Code(s): I25.10 - ATHSCL HEART DISEASE OF [place] CORONARY ARTERY W/O ANG PCTRS Status: Chronic Qualifiers: Coronary Disease-Associated Artery/Lesion type: bypass graft [place] vs. transplanted heart: [place] heart Associated angina: without angina Qualified Code(s): I25.810 - Atherosclerosis of coronary artery bypass graft(s) without angina pectoris (5) Dyslipidemia Code(s): E78.5 - HYPERLIPIDEMIA, UNSPECIFIED Status: Chronic (6) H/O four vessel coronary artery bypass graft Code(s): Z95.1 - PRESENCE OF AORTOCORONARY BYPASS GRAFT Status: Chronic (7) Hypertension Code(s): I10 - ESSENTIAL (PRIMARY) HYPERTENSION Status: Chronic Qualifiers: Hypertension type: essential hypertension Qualified Code(s): I10 - Essential (primary) hypertension - Plan Right ankle pain with erythema: Initially admitted with concern for cellulitis. Was seen by Ortho who did not feel it was cellulitic. Suspected gout. He was treated with oral medications including prednisone for gout. Did not have substantial improvement. Subsequently has had worsening erythema over the past couple of days with persistent pain. Discussed with Ortho. He had an arthrocentesis which revealed clear fluid. Subsequent x-rays were negative. He did have lidocaine injection. He refused physical therapy today. We will try to get him up as soon as possible to see how he is doing. Crystal analysis was sent. Unlikely that it significant gout given clear fluid and no prior history of gout. If that remains negative will anticipate discharge to rehab tomorrow. History of CVA: Patient had a left-sided weakness that is substantially improved. He indicates he is able to walk around his kitchen where he can hold onto things and not use a walker. Some concern that he might be traumatizing his joints a bit with his abnormal gait. Continue with dipyridamole and aspirin. Patient does not appear to be on a statin although he was recently prescribed Zetia. I was also not on his home medication list. Need to investigate this further. Hypertension: Continue home meds. CAD: Continue home regimen including aspirin with dipyridamole. Continue Ranexa. Not on a statin. As above. PUD prophylaxis: Given the recent steroids and the continue naproxen, will resume Protonix. DVT prophylaxis: Lovenox.
--- NOTE | 2019-09-25 21:50 | OP ---
DATE OF PROCEDURE: 09/25/2019 PROCEDURE PERFORMED: Diagnostic and therapeutic arthrocentesis with intra-articular local anesthetic lavage. PREPROCEDURE DIAGNOSIS: Right ankle effusion with erythema with possible gout. POSTPROCEDURE DIAGNOSIS: Ankle effusion. ANESTHETIC: 1% xylocaine without epinephrine. DESCRIPTION OF PROCEDURE: After informed consent was obtained, the patient was positioned appropriately in the supine position. The right ankle was then prepped and draped in usual sterile fashion. I chose an anterolateral approach between the anterior distal fibular lateral malleolus and the tibiotalar joint laterally. Palpation delineated the joint line when there was a little bit of rebound noted. I entered the skin with 1% xylocaine with a skin wheal anesthesia and capsular anesthesia with a 25-gauge needle and 1% xylocaine. I then used an 18-gauge into the joint, which was successful with first try. I removed approximately 2 mL of clear synovial fluid. It did not appear toxic or gouty by gross appearance. No blood was noted. I then injected the joint with an 18-gauge needle with approximately 20 mL of 1% xylocaine without epinephrine. I used a 10 mL syringe to lavage back and forth the lidocaine to ensure good joint filling and recess involvement. I removed extra 10 mL and left the patient with approximately 10 mL of lidocaine. Postprocedure, he really had no change in symptoms and he tolerated the procedure well. Sterile dressing was applied, procedure terminated without any complication. Specimen will be sent for crystal analysis since I have a very low suspicion for septic joint. Job ID: [id number]
[2019-09-26] MEDS: HYDROcodone/Acetaminophen 5/325 mg Tablet PO PRN ×2 (00:16→08:14)
[2019-09-26] MEDS: Ferrous Sulfate 325 MG TAB PO SCH ×2 (08:10→20:09)
[2019-09-26] MEDS: Enoxaparin Sodium 40 MG/0.4 ML SYRINGE SC SCH (08:10)
[2019-09-26] MEDS: Aggrenox 200-25mg CAP PO SCH ×2 (08:10→20:09)
[2019-09-26] MEDS: Polyethylene Glycol 3350 17 GM Packet PO SCH (08:10)
[2019-09-26] MEDS: Amlodipine 5 MG TAB PO SCH (08:10)
--- NOTE | 2019-09-26 08:56 | PRG ---
DATE OF SERVICE: 09/26/2019 SUBJECTIVE: Francisco is an 84-year-old male, we have been reconsulted for right ankle pain. I performed a diagnostic and therapeutic arthrocentesis with joint lavage yesterday and he has had really no improvement since this procedure. It was a good joint tap. There was no blood. I did obtain 2 mL of serous joint fluid with a positive string sign that I sent for crystal analysis because I only obtained 2 mL, which is typical for an ankle joint. Otherwise, this has not returned yet. He was being empirically treated for gout. Otherwise, his ankle has not improved. He has not been out of bed. He has refused physical therapy. Repeat radiographs again were nonconclusive for fracture or any other occult issue going on in the area of complaint, which is the distal fibula which has had erythema now for a week. Also without any blood in the joint or significant bruising. I do not have a suspicion for traumatic etiology such as ankle sprain or occult fracture. OBJECTIVE: He remains afebrile at 98.7, pulse is 93, blood pressure is normotensive. Visual inspection of the right ankle demonstrates he does have peripheral edema as noted by removal of his Kirk bandage and his erythema is still present in and around the perimalleolar region on the right ankle laterally. Again, no fluctuance. No bleeding. No amplification of erythema, but he does have +1-1/2 to 2 edema after removal of his bandage. Tenderness is elicited with palpation of the apex of the fibula on the right. No instability is identified. IMPRESSION: Right distal fibular ankle pain consistent with possible periostitis, but I have a low suspicion of an infectious etiology. Negative joint tap. I would expect blood or other gross exam to be positive. I also expect a large amount of fluid present. We will await. PLAN: I will go ahead and place him in a 3D walking boot to allow for weightbearing as tolerated. I have encouraged Physical Therapy to walk the patient today. I have also encouraged the patient to try to obtain some edema controlled with elevating the extremity. This may minimize his reactive periostitis. We will follow up tomorrow. Job ID: [id number]
[2019-09-26] MEDS: cefTRIAXone\\ROCEPHIN 1 GM in Sodium Chloride 0.9% 100 ML IVPB SCH (10:25)
[2019-09-27] MEDS: Aggrenox 200-25mg CAP PO SCH (08:48)
[2019-09-27] MEDS: Enoxaparin Sodium 40 MG/0.4 ML SYRINGE SC SCH (08:48)
[2019-09-27] MEDS: Ferrous Sulfate 325 MG TAB PO SCH (08:48)
[2019-09-27] MEDS: Amlodipine 5 MG TAB PO SCH (08:48)
[2019-09-27] MEDS: Polyethylene Glycol 3350 17 GM Packet PO SCH (08:48)
[2019-09-27] MEDS: HYDROcodone/Acetaminophen 5/325 mg Tablet PO PRN (08:54)
[2019-09-27 11:32] VITALS: BP 115/69; TEMP 97.9
--- NOTE | 2019-09-27 17:39 | DIS ---
DATE OF ADMISSION: 09/20/2019 DATE OF DISCHARGE: 09/27/2019 DISCHARGE DIAGNOSES: 1. Periostitis of the right ankle resulting in right ankle pain. 2. History of cerebrovascular accident. 3. Dyslipidemia. 4. History of coronary artery disease. 5. Hypertension. HISTORY: The patient is an 84-year-old male, who was initially admitted to the hospital with pain and redness of the right lateral ankle, was concerning initially for cellulitis. The patient was started on IV antibiotics. He was seen by Ortho, who did not feel the patient had infectious etiology and felt it was more likely related to gout. The patient subsequently underwent treatment for gout including some steroids and b.i.d. colchicine with p.r.n. naproxen. However, the patient did not substantially improved and after several days, actually appeared to be getting slightly worse. At that time, he had ultrasound showing hypodensity infiltration of the subcutaneous adipose layer suggesting edema, but no abscess. He had a vascular ultrasound, which showed no evidence of DVT. At that time, Orthopedic Service was reconsulted. The joint itself of the right ankle was tapped with couple of mL of clear fluid removed. The joint was infiltrated with lidocaine. The patient had good range of motion in the ankle and subsequent repeat x-ray did not reveal any new evidence of fracture. The patient was able to get up and ambulate a bit with physical therapy after the joint injection and had stable vital signs. It was also noted that the patient had initially some mild leukocytosis that resolved without antibiotics and he remained essentially afebrile throughout his stay. Orthopedic Service did not feel the patient had infectious etiology and the tap did not reveal any crystals. The patient did give some history that he had traumatized this area a bit prior to the onset of his symptoms, at which time, his foot slid under an end table and impacted his lower leg and ankle area. Therefore, it was felt he likely did probably did not need ongoing antibiotics. However, given the lack of other findings the decision was made to continue oral anitibiotics for a perious of time. He did receive 3 days of ceftriaxone toward the end of the admission without any significant changes in his findings or symptoms. PHYSICAL EXAMINATION: VITAL SIGNS: On the day of discharge, temperature is 97.9, pulse 91, blood pressure 140/91 to 115/69, respirations 16, and O2 saturation 97% on room air. GENERAL APPEARANCE: Age-appropriate male. HEART: Regular. LUNGS: Clear. ABDOMEN: Benign. EXTREMITIES: There is still some inflammatory changes in the lateral right ankle that is back tender cylinder to touch and very slightly warm. DISPOSITION: The patient is discharged to [facility]. He is to have a heart-healthy diet and his activity is as tolerated. He is to be in a walking boot as prescribed and dispensed by Orthopedic Surgery. He should have physical therapy. DISCHARGE MEDICATIONS: Include; 1. Amlodipine 5 mg daily. 2. Aspirin/dipyridamole 25/200 p.o. b.i.d. 3. Ferrous sulfate 325 mg p.o. b.i.d. 4. Ranexa 500 mg p.o. b.i.d. FOLLOWUP: He is to follow up with his primary care provider and he can return to this facility anytime he feels the need to do so. TIME SPENT: Time spent in discharge activities greater than 30 minutes. Job ID: [id number] MTDD
--- NOTE | 2019-09-28 19:35 | PQF ---
Dear : Tim Nieves Date : 09/29/2019 Please exercise your independent, professional judgment in responding to the clarification form. Clinical indicators are provided on the bottom of this form for your review Can you please further clarify if Metabolic encephalopathy is ruled in or ruled out? Metabolic encephalopathy [ ] Ruled in diagnosis [ ] Continue to treat [ ] Resolved [ x ] Ruled out diagnosis [ ] Improving [ ] Cannot rule out diagnosis [ ] Other diagnosis [ ] Unable to determine Physician Signature: Date/Time: For continuity of documentation, please document condition throughout progress notes and discharge summary. Thank You. To be completed by CDI/Coding staff for physician review: Present Clinical Indicators - Signs / Symptoms / Labs Results and Location in Medical Record [ x ] Metabolic encephalopathy due to cellulitis H and p pg.4 [ x ] Fever of 102.5 [ x ] VS: BP 7=97/62, Pulse 104, RR 14, Temp 100.2 ED Provider Report pg.2 [ x ] Pulse tachycardic ED Provider Report pg.2 [ x ] WBC 14.6, 11.1 Laboratory [ x ] Right distal fibular pain consistent with possible periositis, but I have low suspension of an infectious etiology PN 09/25 pg.1 Present Risk Factors Results and Location in Medical Record [ x ] Periositis of the right ankle DS pg.1 [ x ] Cellulitis of right lower extremity H and p pg.4 [ x ] 84 years old H and P pg.1 [ x ] Hx of cva with left sided weakness H and P pg.1 [ x ] Ankle effusion OP Report Pg.1 [ x ] Gout attack Hospitalist PN pg.3 [ x ] HTN H and P pg.1 [ x ] HLD H and P pg.1 [ x ] CAD H and P pg.1 Present Treatments Results and Location in Medical Record [ x ] Ankle X ray 09/18 arthrocentesis Op report pg.1 [ x ] IV Fluids MAR [ x ] Vancomycin 1.5 gm IV MAR [ x ] Rocephin 2gm IV MAR [facility]/[employer] Signature: Yoshi Rashid Phone #: [phone] Date: 09/29/19 MTDDeborah
== END 2019-09-27 12:12 | DRG 540 ==
LOC: ERS 19:43 → T4-B 09-20 01:15
PROVIDERS: ADMIT Internal Medicine; ATTEND Internal Medicine
PROC: 0S9F3ZZ Drainage of Right Ankle Joint, Percutaneous Approach (ICD-10-PCS; principal; 2019-09-25)
DX: M86.8X7 Other osteomyelitis, ankle and foot (principal); I69.354 Hemiplegia and hemiparesis following cerebral infarction affecting left non-dominant side; I25.810 Atherosclerosis of coronary artery bypass graft(s) without angina pectoris; M25.471 Effusion, right ankle; M10.071 Idiopathic gout, right ankle and foot; I10 Essential (primary) hypertension; E78.5 Hyperlipidemia, unspecified; M54.9 Dorsalgia, unspecified; G89.29 Other chronic pain; D64.9 Anemia, unspecified; Z95.1 Presence of aortocoronary bypass graft; I25.2 Old myocardial infarction; Z90.49 Acquired absence of other specified parts of digestive tract; Z88.5 Allergy status to narcotic agent; Z79.82 Long term (current) use of aspirin; Z79.899 Other long term (current) drug therapy; Z20.828 Contact with and (suspected) exposure to other viral communicable diseases
CPT/HCPCS: 36415; 71045; 76999; 80048; 80053; 81003; 81015; 83605; 83735; 84100; 84443; 84484; 84550; 85025; 87040; 87086; 87635; 89060; 93005; 96365; 96366; 96368; J0696; J1650; J2001; J3370; J3490; J7512; U0003

== ENCOUNTER 2020-08-14 14:31 | Outpatient (CLI) | payer MEDICARE, BC ==
[2020-08-14 16:13] LABS: Bilirubin Neg (Negative); Blood, Urine Negative (Negative); Clarity Clear (Clear); Glucose, Urine (Dipstick) Normal (Negative); Ketone, Urine 5 mg/dL (Negative); Leukocyte 100 (Negative); Nitrite Negative (Negative); Protein, Urine (Dipstick) Negative (Neg-Trace)
[2020-08-14 16:26] LABS: #Eosinphils 0.1 10x3/uL (0.0-0.5); #Monocytes 0.5 10x3/uL (0.0-1.1); #Neutrophils 2.9 10x3/uL (1.5-8.4); %Basophils 0.7 % (0.0-2.0); %Eosinophils 1.6 % (0.0-6.0); %Lymphocytes 20.1 % (18.0-47.0); %Monocytes 11.1 % (0.0-10.0); %Neutrophils 65.4 % (40.0-75.0); Hemoglobin 13.6 g/dL (13.5-17.5); Mean Corpuscular HGB CONC 34.2 g/dL (32.0-36.0); Mean Corpuscular Hemoglobin 33.7 pg (27.0-33.0); Mean Corpuscular Volume 98.5 fl (81.2-95.1); Mean Platelet Volume 9.1 fl (7.4-10.4); Platelet Count 185 10x3/uL (150-450); RBC Distribution Width 11.4 % (11.5-14.5); Red Blood Cell (RBC) Count 4.04 10x6/uL (4.32-5.72); White Blood Cell (WBC) Count 4.4 10x3/uL (3.5-10.5)
[2020-08-14 16:39] LABS: Squamous Epithelial 0-3 HPF (0-3)
[2020-08-14 16:40] LABS: Bacteria/HPF Rare-Few HPF (None Seen); Mucous/LPF Rare LPF (<2+)
== END 2020-08-14 14:32 | disposition home or self-care (01) ==
LOC: LABBT 14:31
PROVIDERS: ATTEND Orthopaedic Surgery Hand Surgery
DX: Z01.812 Encounter for preprocedural laboratory examination (principal); G56.02 Carpal tunnel syndrome, left upper limb; G56.22 Lesion of ulnar nerve, left upper limb; M18.12 Unilateral primary osteoarthritis of first carpometacarpal joint, left hand
CPT/HCPCS: 81001; 85025

== ENCOUNTER 2020-09-12 07:38 | Day surgery (SDC) | payer MEDICARE, BC ==
[2020-09-12] MEDS ORDERED: Fentanyl 100 MCG/2 ML VIAL ONE ×2 (11:53)
[2020-09-12] MEDS ORDERED: Midazolam HCl 2 mg/2 ml Vial ONE (11:53)
[2020-09-12] MEDS ORDERED: Propofol 500 MG/50 ML VIAL ONE (11:53)
[2020-09-12] MEDS ORDERED: Bupivacaine PF 0.5% 30 ML VIAL ONE (12:00)
== END 2020-09-12 14:55 | disposition home or self-care (01) ==
LOC: SDC 07:38
PROVIDERS: ATTEND Orthopaedic Surgery Hand Surgery
PROC: 0RPT0JZ Removal of Synthetic Substitute from Left Carpometacarpal Joint, Open Approach (ICD-10-PCS; principal; 2020-09-12)
DX: T84.210A Breakdown (mechanical) of internal fixation device of bones of hand and fingers, initial encounter (principal); T84.84XA Pain due to internal orthopedic prosthetic devices, implants and grafts, initial encounter; I25.2 Old myocardial infarction; I10 Essential (primary) hypertension; E78.5 Hyperlipidemia, unspecified; K21.9 Gastro-esophageal reflux disease without esophagitis; I25.10 Atherosclerotic heart disease of native coronary artery without angina pectoris; I69.354 Hemiplegia and hemiparesis following cerebral infarction affecting left non-dominant side; E78.00 Pure hypercholesterolemia, unspecified; G56.01 Carpal tunnel syndrome, right upper limb; Z79.82 Long term (current) use of aspirin; Z79.899 Other long term (current) drug therapy; Z88.5 Allergy status to narcotic agent; Z95.1 Presence of aortocoronary bypass graft
CPT/HCPCS: 76000; J2250; J2704; J3010; S0020

== ENCOUNTER 2020-10-12 14:40 | Emergency (ER) | payer MEDICARE, BC ==
[2020-10-12] MEDS ORDERED: HYDROcodone/Acetaminophen 5/325 mg Tablet ONE (15:37)
== END 2020-10-12 17:04 | disposition home or self-care (01) ==
LOC: ERS 14:40
DX: S22.32XA Fracture of one rib, left side, initial encounter for closed fracture (principal); I25.2 Old myocardial infarction; I10 Essential (primary) hypertension; W19.XXXA Unspecified fall, initial encounter
CPT/HCPCS: 71046; 94799

== ENCOUNTER 2020-10-13 23:31 | Emergency (ER) | payer MEDICARE, BC ==
[2020-10-14] MEDS ORDERED: Morphine 4 MG/ML VIAL ONE ×2 (01:29→04:56)
[2020-10-14 02:59] LABS: Bilirubin Negative (Negative); Blood, Urine Negative (Negative); Clarity Clear (Clear); Glucose, Urine (Dipstick) Normal (Negative); Ketone, Urine Negative (Negative); Leukocyte Negative Leu/uL (Negative); Nitrite Negative (Negative); Protein, Urine (Dipstick) Negative (Neg-Trace); Specific Gravity, Urine 1.021 (1.002-1.036); Urobilinogen Normal mg/dL (Less than 2)
[2020-10-14 04:15] LABS: SARS-CoV-2 NAA Rapid Test Not Detected (NotDetected)
[2020-10-14 04:49] LABS: #Eosinphils 0.1 thou/uL (0.0-0.7); #Lymphocytes 0.9 thou/uL (1.20-3.40); #Monocytes 0.6 thou/uL (0.11-0.59); #Neutrophils 4.9 thou/uL (1.40-6.50); %Basophils 0.1 % (0.0-1.0); %Eosinophils 1.2 % (0.0-10.0); %Lymphocytes 13.8 % (21.0-51.0); %Monocytes 9.7 % (0.0-10.0); %Neutrophils 75.1 % (42.0-75.0); Mean Corpuscular HGB CONC 34.3 g/dL (32.0-36.0); Mean Corpuscular Hemoglobin 33.8 pg (27.0-31.0); Mean Corpuscular Volume 98.7 fL (78.0-98.0); Mean Platelet Volume 5.9 fL (7.4-10.4); Platelet Count 181 thou/uL (130-400); RBC Distribution Width 10.9 % (11.5-14.5); Red Blood Cell (RBC) Count 3.83 mill/uL (4.70-6.10); White Blood Cell (WBC) Count 6.6 thou/uL (4.8-10.8)
[2020-10-14 05:13] LABS: ALT (SGPT) 9 U/L (8-55); AST (SGOT) 11 U/L (5-34); Albumin 3.8 g/dL (3.4-4.8); Alkaline Phosphatase 58 U/L (40-110); Anion Gap 11 mmol/L (10-20); BUN (Urea Nitrogen) 18 mg/dL (8.4-25.7); Bilirubin, Total 0.7 mg/dL (0.2-1.2); Calc. Creatinine Clearance 0 mL/min (70-130); Calcium 9.3 mg/dL (7.8-10.44); Carbon Dioxide 27 mmol/L (23-31); Chloride 101 mmol/L (98-107); Globulin 2.7 g/dL (2.4-3.5); Glucose 115 mg/dL (83-110); Protein, Total 6.5 g/dL (5.8-8.1); Sodium 135 mmol/L (136-145)
== END 2020-10-14 05:23 ==
LOC: ERS 23:31
DX: S20.212A Contusion of left front wall of thorax, initial encounter (principal); Z20.822 Contact with and (suspected) exposure to COVID-19; I25.2 Old myocardial infarction; I10 Essential (primary) hypertension
CPT/HCPCS: 80053; 81003; 85025; 87086; U0002; 36415; 96372; 99284; J2270

== ENCOUNTER 2021-01-27 17:43 | Inpatient (IN) | payer MEDICARE, BC ==
[2021-01-27] MEDS ORDERED: Dextrose 5% in Water 1,000 ML IV PRN (19:01)
[2021-01-27] MEDS ORDERED: hydrALAZINE 20 MG/ML VIAL SLOW IVP PRN (19:01)
[2021-01-27] MEDS ORDERED: Dextrose 50% Abboject 50 ML SYRINGE SLOW IVP PRN (19:01)
[2021-01-27] MEDS ORDERED: Ondansetron PF 4 MG/2 ML Vial IVP PRN (19:01)
[2021-01-27] MEDS ORDERED: traMADol HCl 50 MG TAB PO PRN (19:05)
[2021-01-27] MEDS ORDERED: Sodium Chloride 0.9% 1,000 ML IV SCH (19:15)
[2021-01-27 19:26] LABS: Bilirubin Negative (Negative); Blood, Urine Negative (Negative); Clarity Clear (Clear); Glucose, Urine (Dipstick) Normal (Negative); Ketone, Urine Negative (Negative); Leukocyte Negative Leu/uL (Negative); Nitrite Negative (Negative); Protein, Urine (Dipstick) Negative (Neg-Trace); Urobilinogen Normal mg/dL (Less than 2); pH, Urine 6.5 (5.0-9.0)
[2021-01-27 19:27] LABS: #Eosinphils 0.1 thou/uL (0.0-0.7); #Lymphocytes 0.7 thou/uL (1.20-3.40); #Monocytes 0.4 thou/uL (0.11-0.59); #Neutrophils 3.3 thou/uL (1.40-6.50); %Basophils 0.5 % (0.0-1.0); %Eosinophils 1.7 % (0.0-10.0); %Lymphocytes 15.5 % (21.0-51.0); %Monocytes 9.4 % (0.0-10.0); %Neutrophils 72.9 % (42.0-75.0); Hemoglobin 14.1 g/dL (14.0-18.0); Mean Corpuscular HGB CONC 34.5 g/dL (32.0-36.0); Mean Corpuscular Hemoglobin 34.1 pg (27.0-31.0); Mean Corpuscular Volume 98.9 fL (78.0-98.0); Mean Platelet Volume 6.4 fL (7.4-10.4); Platelet Count 164 thou/uL (130-400); RBC Distribution Width 11.2 % (11.5-14.5); Red Blood Cell (RBC) Count 4.14 mill/uL (4.70-6.10); White Blood Cell (WBC) Count 4.5 thou/uL (4.8-10.8)
[2021-01-27] MEDS ORDERED: Fentanyl 100 MCG/2 ML VIAL ONE (19:31)
[2021-01-27 19:39] LABS: INR-International Normal Ratio 1.1; Prothrombin Time 14.2 sec (12.0-14.7)
[2021-01-27 19:40] LABS: PTT 32.5 sec (22.9-36.1)
[2021-01-27 19:48] LABS: SARS-CoV-2 NAA Rapid Test Not Detected (NotDetected)
[2021-01-27 19:57] LABS: ALT (SGPT) 9 U/L (8-55); AST (SGOT) 15 U/L (5-34); Albumin 3.9 g/dL (3.4-4.8); Alkaline Phosphatase 72 U/L (40-110); Anion Gap 10 mmol/L (10-20); BUN (Urea Nitrogen) 20 mg/dL (8.4-25.7); Bilirubin, Total 0.8 mg/dL (0.2-1.2); Calc. Creatinine Clearance 0 mL/min (70-130); Calcium 9.5 mg/dL (7.8-10.44); Carbon Dioxide 27 mmol/L (23-31); Chloride 103 mmol/L (98-107); Globulin 2.7 g/dL (2.4-3.5); Glucose 102 mg/dL (83-110); Potassium 4.2 mmol/L (3.5-5.1); Protein, Total 6.6 g/dL (5.8-8.1); Sodium 136 mmol/L (136-145)
[2021-01-27] MEDS ORDERED: Amlodipine 5 MG TAB PO SCH (21:00)
[2021-01-27 21:04] VITALS: BMI 25.1
[2021-01-27] MEDS: Famotidine/PF 20 mg/2ml Vial SLOW IVP SCH (21:19)
[2021-01-27] MEDS: Morphine 4 MG/ML VIAL SLOW IVP PRN (21:19)
[2021-01-28] MEDS: Acetaminophen 325 MG TAB PO SCH ×4 (00:08→17:53)
[2021-01-28] MEDS: Morphine 4 MG/ML VIAL SLOW IVP PRN ×3 (04:18→09:25)
[2021-01-28 05:34] LABS: #Eosinphils 0.1 thou/uL (0.0-0.7); #Lymphocytes 0.9 thou/uL (1.20-3.40); #Monocytes 0.8 thou/uL (0.11-0.59); #Neutrophils 4.1 thou/uL (1.40-6.50); %Basophils 0.2 % (0.0-1.0); %Lymphocytes 14.6 % (21.0-51.0); %Monocytes 13.2 % (0.0-10.0); Hemoglobin 12.6 g/dL (14.0-18.0); Mean Corpuscular HGB CONC 34.8 g/dL (32.0-36.0); Mean Corpuscular Hemoglobin 34.1 pg (27.0-31.0); Mean Corpuscular Volume 98.2 fL (78.0-98.0); Mean Platelet Volume 6.3 fL (7.4-10.4); Platelet Count 148 thou/uL (130-400); RBC Distribution Width 11.3 % (11.5-14.5); Red Blood Cell (RBC) Count 3.71 mill/uL (4.70-6.10); White Blood Cell (WBC) Count 5.8 thou/uL (4.8-10.8)
[2021-01-28 05:52] LABS: Anion Gap 6 mmol/L (10-20); BUN (Urea Nitrogen) 18 mg/dL (8.4-25.7); Calc. Creatinine Clearance 55 mL/min (70-130); Calcium 8.7 mg/dL (7.8-10.44); Carbon Dioxide 29 mmol/L (23-31); Chloride 105 mmol/L (98-107); Glucose 94 mg/dL (83-110); Potassium 3.7 mmol/L (3.5-5.1); Sodium 136 mmol/L (136-145)
[2021-01-28 05:58] LABS: INR-International Normal Ratio 1.1; Prothrombin Time 14.3 sec (12.0-14.7)
[2021-01-28] MEDS ORDERED: CEFAZOLIN 2 GM in Premix Bag 1 BAG IVPB SCH ×2 (07:30→15:45)
[2021-01-28] MEDS ORDERED: Sodium Chloride 0.9% 1,000 ML IV SCH (07:30)
[2021-01-28 07:56] LABS: Magnesium 1.8 mg/dL (1.6-2.6)
[2021-01-28] MEDS ORDERED: Magnesium 2 GM/50 ML 2 GM in Premix Bag 1 BAG IVPB SCH (08:45)
[2021-01-28] MEDS: Carvedilol 3.125 MG TAB PO SCH ×2 (09:26→21:13)
[2021-01-28] MEDS: Famotidine/PF 20 mg/2ml Vial SLOW IVP SCH ×2 (09:26→21:13)
[2021-01-28 10:56] LABS: Phosphorus 3.4 mg/dL (2.3-4.7)
[2021-01-28] MEDS: Ferrous Sulfate 325 MG TAB PO SCH (11:11)
[2021-01-28] MEDS ORDERED: ceFAZolin 2 GM/DEX 5% 100 ML BAG ONE (14:28)
[2021-01-28] MEDS ORDERED: Fentanyl 100 MCG/2 ML VIAL ONE ×2 (14:42→15:45)
[2021-01-28] MEDS ORDERED: PROPOFOL 200 MG/20 ML VIAL ONE (15:59)
[2021-01-28] MEDS ORDERED: Lidocaine 1% PF 5 ML VIAL ONE (15:59)
[2021-01-28] MEDS ORDERED: Dexamethasone 20 MG/5 ML VIAL ONE (15:59)
[2021-01-28] MEDS ORDERED: Ondansetron PF 4 MG/2 ML Vial ONE (15:59)
[2021-01-28] MEDS ORDERED: Ondansetron HCl/PF 4 MG/2 ML Vial IVP PRN (17:05)
[2021-01-28] MEDS: Amlodipine 5 MG TAB PO SCH (21:11)
[2021-01-28] MEDS: Senokot S 8.6-50 MG TAB PO SCH (21:12)
[2021-01-29] MEDS: Acetaminophen 325 MG TAB PO SCH ×4 (00:01→18:42)
[2021-01-29 04:29] LABS: #Lymphocytes 0.5 thou/uL (1.20-3.40); #Monocytes 0.7 thou/uL (0.11-0.59); #Neutrophils 5.8 thou/uL (1.40-6.50); %Basophils 0.3 % (0.0-1.0); %Eosinophils 0.2 % (0.0-10.0); %Lymphocytes 6.5 % (21.0-51.0); %Monocytes 10.1 % (0.0-10.0); %Neutrophils 82.9 % (42.0-75.0); Hemoglobin 12.1 g/dL (14.0-18.0); Mean Corpuscular HGB CONC 35.2 g/dL (32.0-36.0); Mean Corpuscular Hemoglobin 35.1 pg (27.0-31.0); Mean Corpuscular Volume 99.5 fL (78.0-98.0); Mean Platelet Volume 6.4 fL (7.4-10.4); Platelet Count 139 thou/uL (130-400); RBC Distribution Width 11.2 % (11.5-14.5); Red Blood Cell (RBC) Count 3.46 mill/uL (4.70-6.10); White Blood Cell (WBC) Count 6.9 thou/uL (4.8-10.8)
[2021-01-29 04:41] LABS: Anion Gap 11 mmol/L (10-20); BUN (Urea Nitrogen) 25 mg/dL (8.4-25.7); Calc. Creatinine Clearance 46 mL/min (70-130); Calcium 8.5 mg/dL (7.8-10.44); Carbon Dioxide 23 mmol/L (23-31); Chloride 103 mmol/L (98-107); Glucose 163 mg/dL (83-110); Magnesium 2.1 mg/dL (1.6-2.6); Phosphorus 2.9 mg/dL (2.3-4.7); Potassium 4.4 mmol/L (3.5-5.1); Sodium 133 mmol/L (136-145)
[2021-01-29] MEDS: Polyethylene Glycol 3350 17 GM Packet PO SCH (09:44)
[2021-01-29] MEDS: Senokot S 8.6-50 MG TAB PO SCH ×2 (09:44→21:13)
[2021-01-29] MEDS: Famotidine/PF 20 mg/2ml Vial SLOW IVP SCH (09:44)
[2021-01-29] MEDS: Aggrenox 200-25mg CAP PO SCH ×2 (09:45→21:13)
[2021-01-29] MEDS: Ferrous Sulfate 325 MG TAB PO SCH (09:51)
[2021-01-29] MEDS: Carvedilol 3.125 MG TAB PO SCH ×2 (09:51→21:13)
[2021-01-29] MEDS: Gabapentin 300 MG CAP PO SCH ×2 (15:17→21:15)
[2021-01-29] MEDS: Amlodipine 5 MG TAB PO SCH (21:14)
[2021-01-29] MEDS: Ibuprofen 200 MG TAB PO PRN (21:16)
[2021-01-30] MEDS: Acetaminophen 325 MG TAB PO SCH ×3 (00:16→12:21)
[2021-01-30] MEDS ORDERED: Famotidine/PF 20 mg/2ml Vial SLOW IVP SCH (09:00)
[2021-01-30] MEDS: Gabapentin 300 MG CAP PO SCH (09:20)
[2021-01-30] MEDS: Carvedilol 3.125 MG TAB PO SCH (09:21)
[2021-01-30] MEDS: Ferrous Sulfate 325 MG TAB PO SCH (09:21)
[2021-01-30] MEDS: Senokot S 8.6-50 MG TAB PO SCH (09:21)
[2021-01-30] MEDS: Aggrenox 200-25mg CAP PO SCH (09:22)
[2021-01-30] MEDS: Polyethylene Glycol 3350 17 GM Packet PO SCH (09:23)
[2021-01-30] MEDS: Ibuprofen 200 MG TAB PO PRN (12:21)
[2021-01-30 12:39] VITALS: BP 103/64; TEMP 98.4
== END 2021-01-30 13:14 | DRG 481 ==
LOC: ERS 17:43 → SURG B 18:57
PROVIDERS: ADMIT Specialist; ATTEND Specialist
PROC: 0QS606Z Reposition Right Upper Femur with Intramedullary Internal Fixation Device, Open Approach (ICD-10-PCS; principal; 2021-01-28)
DX: S72.141A Displaced intertrochanteric fracture of right femur, initial encounter for closed fracture (principal); I69.354 Hemiplegia and hemiparesis following cerebral infarction affecting left non-dominant side; Z20.822 Contact with and (suspected) exposure to COVID-19; W18.30XA Fall on same level, unspecified, initial encounter; I10 Essential (primary) hypertension; I25.10 Atherosclerotic heart disease of native coronary artery without angina pectoris; K21.9 Gastro-esophageal reflux disease without esophagitis; G89.29 Other chronic pain; E78.5 Hyperlipidemia, unspecified; Z79.82 Long term (current) use of aspirin; Z79.899 Other long term (current) drug therapy; Z88.5 Allergy status to narcotic agent; Z95.1 Presence of aortocoronary bypass graft; Z98.890 Other specified postprocedural states; Z87.891 Personal history of nicotine dependence; Z90.49 Acquired absence of other specified parts of digestive tract; Z90.89 Acquired absence of other organs; I25.2 Old myocardial infarction
CPT/HCPCS: 0241U; 36415; 72170; 76000; 80048; 80053; 81003; 83735; 84100; 85025; 85610; 85730; 93005; 96374; C1713; G0390; J1100; J2270; J2405; J2704; J3010; J3475; J7050; S0028

== ENCOUNTER 2021-02-18 12:31 | Inpatient (IN) | payer MEDICARE, BC ==
[2021-02-18] MEDS ORDERED: Vancomycin 1 GM/200 ML BAG ONE (13:07)
[2021-02-18] MEDS ORDERED: Cefepime 2 GM VIAL ONE (13:07)
[2021-02-18 13:09] LABS: #Lymphocytes 0.4 thou/uL (1.20-3.40); #Monocytes 0.9 thou/uL (0.11-0.59); #Neutrophils 11.9 thou/uL (1.40-6.50); %Basophils 0.1 % (0.0-1.0); %Eosinophils 0.1 % (0.0-10.0); %Lymphocytes 3.3 % (21.0-51.0); %Monocytes 6.8 % (0.0-10.0); %Neutrophils 89.7 % (42.0-75.0); Hemoglobin 10.9 g/dL (14.0-18.0); Mean Corpuscular HGB CONC 32.9 g/dL (32.0-36.0); Mean Corpuscular Hemoglobin 33.7 pg (27.0-31.0); Mean Platelet Volume 5.9 fL (7.4-10.4); Platelet Count 270 thou/uL (130-400); RBC Distribution Width 11.9 % (11.5-14.5); Red Blood Cell (RBC) Count 3.23 mill/uL (4.70-6.10); White Blood Cell (WBC) Count 13.3 thou/uL (4.8-10.8)
[2021-02-18 13:27] LABS: Bacteria/HPF 4+ HPF (None Seen); Bilirubin Negative (Negative); Blood, Urine 3+ (Negative); Clarity Extra Turbid (Clear); Glucose, Urine (Dipstick) Normal (Negative); Ketone, Urine Negative (Negative); Leukocyte 500 Leu/uL (Negative); Nitrite Negative (Negative); Protein, Urine (Dipstick) 50 mg/dL (Neg-Trace); RBC/HPF 21-50 HPF (0-3); Specific Gravity, Urine 1.022 (1.002-1.036); Squamous Epithelial None Seen HPF (0-3); Urobilinogen Normal mg/dL (Less than 2); WBC/HPF Greater than 50 HPF (0-3)
[2021-02-18 13:37] LABS: ALT (SGPT) 7 U/L (8-55); AST (SGOT) 10 U/L (5-34); Albumin 3.2 g/dL (3.4-4.8); Alkaline Phosphatase 116 U/L (40-110); Anion Gap 10 mmol/L (10-20); BUN (Urea Nitrogen) 37 mg/dL (8.4-25.7); Calc. Creatinine Clearance 0 mL/min (70-130); Calcium 8.8 mg/dL (7.8-10.44); Carbon Dioxide 29 mmol/L (23-31); Chloride 101 mmol/L (98-107); Globulin 3.3 g/dL (2.4-3.5); Glucose 151 mg/dL (83-110); Potassium 4.9 mmol/L (3.5-5.1); Protein, Total 6.5 g/dL (5.8-8.1); Sodium 135 mmol/L (136-145)
[2021-02-18 14:57] LABS: SARS-CoV-2 NAA Rapid Test Not Detected (NotDetected)
[2021-02-18 16:06] LABS: Lactic Acid 1.3 mmol/L (0.5-2.2)
[2021-02-18] MEDS ORDERED: Ondansetron PF 4 MG/2 ML Vial IVP PRN (16:51)
[2021-02-18] MEDS ORDERED: Sodium Chloride 0.9% 1,000 ML IV SCH (17:15)
[2021-02-18] MEDS: Albumin 25% 25 GM/100 ML BOT IVPB SCH ×2 (18:27→23:41)
[2021-02-18] MEDS ORDERED: Norepinephrine 4 MG/4 ML VIAL ONE (18:42)
[2021-02-18] MEDS: Norepinephrine 8 MG/0.9% NS 250 ML IVPB PRN ×2 (18:55→21:40)
[2021-02-18] MEDS: Acetaminophen 325 MG TAB PO PRN (20:33)
[2021-02-18] MEDS ORDERED: Aggrenox 200-25mg CAP PO SCH (21:00)
[2021-02-18] MEDS: Heparin 5,000 UNITS/ML VIAL SC SCH (21:40)
[2021-02-18] MEDS: Sodium Chloride 0.9% 1,000 ML IV SCH (22:46)
[2021-02-19 03:53] LABS: #Lymphocytes 0.5 thou/uL (1.20-3.40); #Monocytes 1.3 thou/uL (0.11-0.59); #Neutrophils 10.8 thou/uL (1.40-6.50); %Basophils 0.1 % (0.0-1.0); %Eosinophils 0.1 % (0.0-10.0); %Lymphocytes 3.8 % (21.0-51.0); %Neutrophils 86.1 % (42.0-75.0); Hemoglobin 9.5 g/dL (14.0-18.0); Mean Corpuscular HGB CONC 35.1 g/dL (32.0-36.0); Mean Corpuscular Hemoglobin 35.7 pg (27.0-31.0); Mean Platelet Volume 5.9 fL (7.4-10.4); Platelet Count 194 thou/uL (130-400); RBC Distribution Width 11.8 % (11.5-14.5); Red Blood Cell (RBC) Count 2.66 mill/uL (4.70-6.10); White Blood Cell (WBC) Count 12.6 thou/uL (4.8-10.8)
[2021-02-19 04:07] LABS: Anion Gap 12 mmol/L (10-20); BUN (Urea Nitrogen) 36 mg/dL (8.4-25.7); Calc. Creatinine Clearance 36 mL/min (70-130); Calcium 8.6 mg/dL (7.8-10.44); Carbon Dioxide 22 mmol/L (23-31); Chloride 105 mmol/L (98-107); Glucose 112 mg/dL (83-110); Potassium 4.4 mmol/L (3.5-5.1); Sodium 135 mmol/L (136-145)
[2021-02-19] MEDS: Albumin 25% 25 GM/100 ML BOT IVPB SCH ×2 (04:46→10:05)
[2021-02-19] MEDS: Heparin 5,000 UNITS/ML VIAL SC SCH ×3 (08:07→20:32)
[2021-02-19] MEDS ORDERED: Famotidine/PF 20 mg/2ml Vial SLOW IVP SCH (09:00)
[2021-02-19] MEDS ORDERED: Polyethylene Glycol 3350 17 GM Packet PO SCH (09:00)
[2021-02-19] MEDS: Sodium Chloride 0.9% 1,000 ML IV SCH (12:33)
[2021-02-19] MEDS: Cefepime 2 GM in Sodium Chloride 0.9% 100 ML IVPB SCH (12:33)
[2021-02-19] MEDS: VANCOMYCIN 1.25 GM/250 ML BAG 1.25 GM in Premix Bag 1 BAG IVPB SCH (12:39)
[2021-02-20] MEDS: Sodium Chloride 0.9% 1,000 ML IV SCH (04:46)
[2021-02-20 07:24] LABS: #Lymphocytes 0.5 thou/uL (1.20-3.40); #Monocytes 0.6 thou/uL (0.11-0.59); #Neutrophils 5.6 thou/uL (1.40-6.50); %Basophils 0.2 % (0.0-1.0); %Eosinophils 0.7 % (0.0-10.0); %Lymphocytes 7.3 % (21.0-51.0); %Monocytes 8.9 % (0.0-10.0); Mean Corpuscular HGB CONC 33.5 g/dL (32.0-36.0); Mean Corpuscular Hemoglobin 33.8 pg (27.0-31.0); Mean Platelet Volume 6.2 fL (7.4-10.4); Platelet Count 164 thou/uL (130-400); RBC Distribution Width 11.4 % (11.5-14.5); Red Blood Cell (RBC) Count 2.65 mill/uL (4.70-6.10); White Blood Cell (WBC) Count 6.8 thou/uL (4.8-10.8)
[2021-02-20 07:41] LABS: Anion Gap 11 mmol/L (10-20); BUN (Urea Nitrogen) 31 mg/dL (8.4-25.7); Calc. Creatinine Clearance 53 mL/min (70-130); Calcium 8.5 mg/dL (7.8-10.44); Carbon Dioxide 21 mmol/L (23-31); Chloride 109 mmol/L (98-107); Glucose 103 mg/dL (83-110); Sodium 137 mmol/L (136-145)
[2021-02-20] MEDS: Heparin 5,000 UNITS/ML VIAL SC SCH (08:56)
[2021-02-20] MEDS ORDERED: Lactated Ringer's 1,000 ML IV SCH (09:30)
[2021-02-20 09:54] LABS: Phosphorus 2.1 mg/dL (2.3-4.7)
[2021-02-20] MEDS ORDERED: Tamsulosin HCl 0.4 MG CAP PO SCH (12:00)
[2021-02-20] MEDS: Cefepime 2 GM in Sodium Chloride 0.9% 100 ML IVPB SCH (12:22)
[2021-02-20] MEDS: VANCOMYCIN 1.25 GM/250 ML BAG 1.25 GM in Premix Bag 1 BAG IVPB SCH (12:22)
[2021-02-20 12:41] LABS: Vancomycin, Trough 8.3 ug/mL
[2021-02-20] MEDS: Acetaminophen 325 MG TAB PO PRN ×2 (14:58→20:48)
[2021-02-20] MEDS ORDERED: Piperacillin/Tazobactam 3.375 GM in Sodium Chloride 0.9% 100 ML IVPB SCH ×2 (19:15→20:00)
[2021-02-20] MEDS: Tamsulosin HCl 0.4 MG CAP PO SCH (20:49)
[2021-02-20] MEDS ORDERED: Cefepime 2 GM in Sodium Chloride 0.9% 100 ML IVPB SCH (23:59)
[2021-02-21 00:14] LABS: Legionella Urinary Ag Negative (Negative)
[2021-02-21] MEDS: Piperacillin/Tazobactam 3.375 GM in Sodium Chloride 0.9% 100 ML IVPB SCH ×3 (00:37→15:43)
[2021-02-21] MEDS ORDERED: oxyCODONE 5 MG TAB PO SCH (00:45)
[2021-02-21] MEDS ORDERED: VANCOMYCIN 1.25 GM/250 ML BAG 1.25 GM in Premix Bag 1 BAG IVPB SCH (01:00)
[2021-02-21 01:06] LABS: Strep pneumo Urine Ag NEGATIVE (NEGATIVE)
[2021-02-21 06:18] LABS: #Lymphocytes 0.4 thou/uL (1.20-3.40); #Monocytes 0.5 thou/uL (0.11-0.59); #Neutrophils 4.3 thou/uL (1.40-6.50); %Eosinophils 0.9 % (0.0-10.0); %Lymphocytes 7.4 % (21.0-51.0); %Monocytes 9.6 % (0.0-10.0); %Neutrophils 82.1 % (42.0-75.0); Hemoglobin 9.5 g/dL (14.0-18.0); Mean Corpuscular HGB CONC 34.7 g/dL (32.0-36.0); Mean Corpuscular Hemoglobin 34.4 pg (27.0-31.0); Mean Corpuscular Volume 99.2 fL (78.0-98.0); Mean Platelet Volume 6.2 fL (7.4-10.4); Platelet Count 168 thou/uL (130-400); RBC Distribution Width 11.2 % (11.5-14.5); Red Blood Cell (RBC) Count 2.76 mill/uL (4.70-6.10); White Blood Cell (WBC) Count 5.3 thou/uL (4.8-10.8)
[2021-02-21 06:42] LABS: ALT (SGPT) 12 U/L (8-55); AST (SGOT) 14 U/L (5-34); Albumin 3.1 g/dL (3.4-4.8); Alkaline Phosphatase 78 U/L (40-110); Anion Gap 13 mmol/L (10-20); BUN (Urea Nitrogen) 21 mg/dL (8.4-25.7); Bilirubin, Total 0.9 mg/dL (0.2-1.2); Calc. Creatinine Clearance 63 mL/min (70-130); Calcium 8.9 mg/dL (7.8-10.44); Carbon Dioxide 19 mmol/L (23-31); Chloride 108 mmol/L (98-107); Globulin 2.7 g/dL (2.4-3.5); Glucose 123 mg/dL (83-110); Potassium 3.6 mmol/L (3.5-5.1); Protein, Total 5.8 g/dL (5.8-8.1); Sodium 136 mmol/L (136-145)
[2021-02-21] MEDS: Enoxaparin Sodium 40 MG/0.4 ML SYRINGE SC SCH (09:20)
[2021-02-21] MEDS ORDERED: HYDROcodone/Acetaminophen 5/325 mg Tablet PO PRN (13:49)
[2021-02-21] MEDS ORDERED: Naproxen 500 MG TAB PO PRN (13:52)
[2021-02-21] MEDS: Senokot S 8.6-50 MG TAB PO PRN (15:43)
[2021-02-21] MEDS ORDERED: Bisacodyl 5 MG TAB PO PRN (17:55)
[2021-02-21] MEDS ORDERED: Polyethylene Glycol 3350 17 GM Packet PO SCH (18:00)
[2021-02-21] MEDS ORDERED: Carvedilol 3.125 MG TAB PO SCH (19:00)
[2021-02-21] MEDS: Tamsulosin HCl 0.4 MG CAP PO SCH (20:11)
[2021-02-21] MEDS: Aggrenox 200-25mg CAP PO SCH (20:11)
[2021-02-21] MEDS: HYDROcodone/Acetaminophen 7.5/325 mg Tablet PO PRN (20:50)
[2021-02-22] MEDS: Piperacillin/Tazobactam 3.375 GM in Sodium Chloride 0.9% 100 ML IVPB SCH ×3 (00:22→17:30)
[2021-02-22] MEDS: Ferrous Sulfate 325 MG TAB PO SCH (09:59)
[2021-02-22] MEDS: Carvedilol 3.125 MG TAB PO SCH ×2 (09:59→17:31)
[2021-02-22] MEDS: Enoxaparin Sodium 40 MG/0.4 ML SYRINGE SC SCH (10:00)
[2021-02-22] MEDS: Polyethylene Glycol 3350 17 GM Packet PO SCH (10:00)
[2021-02-22] MEDS: Senokot S 8.6-50 MG TAB PO PRN (10:08)
[2021-02-22] MEDS: Aggrenox 200-25mg CAP PO SCH ×2 (10:08→20:29)
[2021-02-22] MEDS: Bisacodyl 10 MG SUPP PR PRN (11:25)
[2021-02-22] MEDS ORDERED: Lactated Ringer's 1,000 ML IV SCH (16:15)
[2021-02-22] MEDS: Tamsulosin HCl 0.4 MG CAP PO SCH (20:29)
[2021-02-22] MEDS: HYDROcodone/Acetaminophen 7.5/325 mg Tablet PO PRN (20:29)
[2021-02-23] MEDS: Piperacillin/Tazobactam 3.375 GM in Sodium Chloride 0.9% 100 ML IVPB SCH ×3 (00:14→17:08)
[2021-02-23] MEDS: Polyethylene Glycol 3350 17 GM Packet PO SCH ×2 (08:33→08:36)
[2021-02-23] MEDS: Enoxaparin Sodium 40 MG/0.4 ML SYRINGE SC SCH (08:33)
[2021-02-23] MEDS: Ferrous Sulfate 325 MG TAB PO SCH (08:33)
[2021-02-23] MEDS: Carvedilol 3.125 MG TAB PO SCH ×2 (08:34→17:08)
[2021-02-23] MEDS: Aggrenox 200-25mg CAP PO SCH ×2 (08:34→20:29)
[2021-02-23 14:28] VITALS: BMI 25.8
[2021-02-23] MEDS: Bisacodyl 10 MG SUPP PR PRN (17:37)
[2021-02-23] MEDS: HYDROcodone/Acetaminophen 7.5/325 mg Tablet PO PRN (20:28)
[2021-02-23] MEDS: Tamsulosin HCl 0.4 MG CAP PO SCH (20:29)
[2021-02-24] MEDS: Piperacillin/Tazobactam 3.375 GM in Sodium Chloride 0.9% 100 ML IVPB SCH ×3 (00:36→16:19)
[2021-02-24] MEDS: HYDROcodone/Acetaminophen 7.5/325 mg Tablet PO PRN (02:15)
[2021-02-24] MEDS: Carvedilol 3.125 MG TAB PO SCH ×2 (08:47→16:19)
[2021-02-24] MEDS: Enoxaparin Sodium 40 MG/0.4 ML SYRINGE SC SCH (08:47)
[2021-02-24] MEDS: Aggrenox 200-25mg CAP PO SCH (08:47)
[2021-02-24] MEDS: Ferrous Sulfate 325 MG TAB PO SCH (08:47)
[2021-02-24] MEDS: Polyethylene Glycol 3350 17 GM Packet PO SCH (08:56)
[2021-02-24 16:28] VITALS: BP 149/82; TEMP 98.1
[2021-02-24 23:47] LABS: SARS-CoV-2 PCR by NAA Not Detected (NotDetected)
== END 2021-02-24 20:10 | DRG 871 ==
LOC: ERS 12:31 → ERHOLD 16:28 → CCU 19:18 → NEURO 02-19 16:43
PROVIDERS: ADMIT Family Medicine; ATTEND Family Medicine
PROC: 02HV33Z Insertion of Infusion Device into Superior Vena Cava, Percutaneous Approach (ICD-10-PCS; principal; 2021-02-23)
PROC: B518ZZA Fluoroscopy of Superior Vena Cava, Guidance (ICD-10-PCS; 2021-02-23)
DX: A41.59 Other Gram-negative sepsis (principal); R65.21 Severe sepsis with septic shock; J96.01 Acute respiratory failure with hypoxia; N39.0 Urinary tract infection, site not specified; N17.9 Acute kidney failure, unspecified; I69.354 Hemiplegia and hemiparesis following cerebral infarction affecting left non-dominant side; N13.8 Other obstructive and reflux uropathy; I25.810 Atherosclerosis of coronary artery bypass graft(s) without angina pectoris; I10 Essential (primary) hypertension; M54.9 Dorsalgia, unspecified; G89.29 Other chronic pain; K21.9 Gastro-esophageal reflux disease without esophagitis; K44.9 Diaphragmatic hernia without obstruction or gangrene; K57.90 Diverticulosis of intestine, part unspecified, without perforation or abscess without bleeding; N40.1 Benign prostatic hyperplasia with lower urinary tract symptoms; D64.9 Anemia, unspecified; E88.09 Other disorders of plasma-protein metabolism, not elsewhere classified; E86.0 Dehydration; E87.8 Other disorders of electrolyte and fluid balance, not elsewhere classified; K59.00 Constipation, unspecified; Z95.1 Presence of aortocoronary bypass graft; Z88.5 Allergy status to narcotic agent; Z79.899 Other long term (current) drug therapy; I25.2 Old myocardial infarction; Z90.49 Acquired absence of other specified parts of digestive tract; Z98.890 Other specified postprocedural states; Z87.891 Personal history of nicotine dependence
CPT/HCPCS: 0240U; 36415; 36569; 71045; 74176; 80048; 80053; 80202; 81003; 81015; 83605; 83735; 84100; 84145; 85025; 87040; 87077; 87081; 87086; 87186; 87449; 87899; 93005; C1751; J0692; J1644; J1650; J2543; J3370; J3490; J7050; J7120; P9047; U0003; U0005

== ENCOUNTER 2021-04-10 09:52 | Inpatient (IN) | payer MEDICARE, BC ==
[2021-04-10 10:47] LABS: #Eosinphils 0.1 thou/uL (0.0-0.7); #Monocytes 0.7 thou/uL (0.11-0.59); #Neutrophils 6.4 thou/uL (1.40-6.50); %Basophils 0.1 % (0.0-1.0); %Eosinophils 1.4 % (0.0-10.0); %Lymphocytes 11.9 % (21.0-51.0); %Neutrophils 77.6 % (42.0-75.0); Hemoglobin 12.5 g/dL (14.0-18.0); Mean Corpuscular HGB CONC 33.4 g/dL (32.0-36.0); Mean Corpuscular Volume 98.8 fL (78.0-98.0); Mean Platelet Volume 6.1 fL (7.4-10.4); Platelet Count 199 thou/uL (130-400); RBC Distribution Width 11.6 % (11.5-14.5); White Blood Cell (WBC) Count 8.2 thou/uL (4.8-10.8)
[2021-04-10 11:10] LABS: ALT (SGPT) 15 U/L (8-55); AST (SGOT) 12 U/L (5-34); Albumin 3.5 g/dL (3.4-4.8); Alkaline Phosphatase 111 U/L (40-110); Anion Gap 11 mmol/L (10-20); BUN (Urea Nitrogen) 22 mg/dL (8.4-25.7); Bilirubin, Total 1.2 mg/dL (0.2-1.2); Calc. Creatinine Clearance 0 mL/min (70-130); Carbon Dioxide 26 mmol/L (23-31); Chloride 103 mmol/L (98-107); Globulin 3.3 g/dL (2.4-3.5); Glucose 174 mg/dL (83-110); Potassium 4.6 mmol/L (3.5-5.1); Protein, Total 6.8 g/dL (5.8-8.1); Sodium 135 mmol/L (136-145)
[2021-04-10] MEDS ORDERED: Iopamidol-370 76% 500 ML 1 ML ONE (11:30)
[2021-04-10] MEDS ORDERED: Enoxaparin Sodium 80 MG/0.8 ML SYRINGE ONE (13:11)
[2021-04-10 14:25] LABS: Troponin I Less than 0.010 ng/mL (< 0.028)
[2021-04-10] MEDS ORDERED: Ondansetron ODT 4 MG TAB PO PRN (14:30)
[2021-04-10] MEDS ORDERED: Acetaminophen 325 MG TAB PO PRN (14:30)
[2021-04-10] MEDS ORDERED: HYDROcodone/Acetaminophen 5/325 mg Tablet PO PRN (14:30)
[2021-04-10] MEDS ORDERED: Communication Order-Pharmacy FS SCH (14:30)
[2021-04-10] MEDS ORDERED: hydrALAZINE 20 MG/ML VIAL SLOW IVP PRN (14:30)
[2021-04-10 15:31] LABS: Hemoglobin 12.3 g/dL (14.0-18.0); Platelet Count 185 thou/uL (130-400)
[2021-04-10 15:56] VITALS: BMI 23.3
[2021-04-10 16:31] LABS: Troponin I Less than 0.010 ng/mL (< 0.028)
[2021-04-10] MEDS: Aggrenox 200-25mg CAP PO SCH (20:43)
[2021-04-10] MEDS: Tamsulosin HCl 0.4 MG CAP PO SCH (20:44)
[2021-04-10] MEDS: Enoxaparin Sodium 80 MG/0.8 ML SYRINGE SC SCH (20:44)
[2021-04-11 00:09] LABS: SARS-CoV-2 PCR by NAA Not Detected (NotDetected)
[2021-04-11 05:03] LABS: #Eosinphils 0.1 thou/uL (0.0-0.7); #Lymphocytes 1.1 thou/uL (1.20-3.40); #Monocytes 0.5 thou/uL (0.11-0.59); #Neutrophils 3.9 thou/uL (1.40-6.50); %Basophils 0.4 % (0.0-1.0); %Eosinophils 1.7 % (0.0-10.0); %Lymphocytes 19.2 % (21.0-51.0); %Monocytes 9.3 % (0.0-10.0); %Neutrophils 69.5 % (42.0-75.0); Hemoglobin 12.1 g/dL (14.0-18.0); Mean Corpuscular HGB CONC 33.2 g/dL (32.0-36.0); Mean Corpuscular Hemoglobin 32.7 pg (27.0-31.0); Mean Corpuscular Volume 98.6 fL (78.0-98.0); Mean Platelet Volume 6.4 fL (7.4-10.4); Platelet Count 180 thou/uL (130-400); RBC Distribution Width 11.7 % (11.5-14.5); Red Blood Cell (RBC) Count 3.69 mill/uL (4.70-6.10); White Blood Cell (WBC) Count 5.6 thou/uL (4.8-10.8)
[2021-04-11 05:20] LABS: Anion Gap 10 mmol/L (10-20); BUN (Urea Nitrogen) 19 mg/dL (8.4-25.7); Calc. Creatinine Clearance 48 mL/min (70-130); Calcium 8.8 mg/dL (7.8-10.44); Carbon Dioxide 26 mmol/L (23-31); Chloride 104 mmol/L (98-107); Glucose 104 mg/dL (83-110); Sodium 136 mmol/L (136-145)
[2021-04-11] MEDS: Aggrenox 200-25mg CAP PO SCH ×2 (08:29→20:09)
[2021-04-11] MEDS: Enoxaparin Sodium 80 MG/0.8 ML SYRINGE SC SCH (08:29)
[2021-04-11] MEDS ORDERED: Enoxaparin Sodium 80 MG/0.8 ML SYRINGE SC SCH ×2 (09:00→21:00)
[2021-04-11] MEDS: Carvedilol 3.125 MG TAB PO SCH (20:04)
[2021-04-11] MEDS: Tamsulosin HCl 0.4 MG CAP PO SCH (20:04)
[2021-04-12] MEDS ORDERED: Ferrous Sulfate 325 MG TAB PO SCH (09:00)
[2021-04-12] MEDS ORDERED: Apixaban 5 MG TAB PO SCH (09:00)
[2021-04-12] MEDS ORDERED: Folic Acid 1 MG TAB PO SCH (09:00)
[2021-04-12] MEDS ORDERED: Potassium Chloride 10 MEQ TAB PO SCH (09:00)
[2021-04-12] MEDS: Carvedilol 3.125 MG TAB PO SCH (09:14)
[2021-04-12] MEDS: Aggrenox 200-25mg CAP PO SCH (09:14)
[2021-04-12 17:14] VITALS: BP 126/69; TEMP 98.5
== END 2021-04-12 17:48 | DRG 176 ==
LOC: ERS 09:52 → 2NO 13:39
PROVIDERS: ADMIT Internal Medicine; ATTEND Family Medicine
DX: I26.99 Other pulmonary embolism without acute cor pulmonale (principal); N17.9 Acute kidney failure, unspecified; I25.810 Atherosclerosis of coronary artery bypass graft(s) without angina pectoris; Z20.822 Contact with and (suspected) exposure to COVID-19; G89.29 Other chronic pain; M54.9 Dorsalgia, unspecified; K21.9 Gastro-esophageal reflux disease without esophagitis; R09.02 Hypoxemia; I12.9 Hypertensive chronic kidney disease with stage 1 through stage 4 chronic kidney disease, or unspecified chronic kidney disease; N18.9 Chronic kidney disease, unspecified; Z88.6 Allergy status to analgesic agent; Z79.82 Long term (current) use of aspirin; Z79.899 Other long term (current) drug therapy; Z79.891 Long term (current) use of opiate analgesic; Z86.73 Personal history of transient ischemic attack (TIA), and cerebral infarction without residual deficits; Z95.1 Presence of aortocoronary bypass graft; Z95.5 Presence of coronary angioplasty implant and graft; Z90.49 Acquired absence of other specified parts of digestive tract; Z82.49 Family history of ischemic heart disease and other diseases of the circulatory system; Z99.81 Dependence on supplemental oxygen; Z90.89 Acquired absence of other organs
CPT/HCPCS: 36415; 71045; 71275; 80048; 80053; 83880; 84484; 85025; 85379; 93005; 96372; J1650; Q9967; U0003; U0005

== ENCOUNTER 2021-05-25 15:59 | Inpatient (IN) | payer MEDICARE, BC ==
[~2021-05-25 15:59] MED LIST changes: -ISOVUE-370 76%-LOCM 1 ML ONE; +Iopamidol 370 76% 50 ML VIAL FS ONE; +Iopamidol-370 76% 500 ML 1 ML ONE
[2021-05-25 16:36] LABS: #Eosinphils 0.1 thou/uL (0.0-0.7); #Lymphocytes 0.7 thou/uL (1.20-3.40); #Monocytes 0.4 thou/uL (0.11-0.59); %Basophils 0.4 % (0.0-1.0); %Eosinophils 1.2 % (0.0-10.0); %Lymphocytes 16.9 % (21.0-51.0); %Monocytes 8.7 % (0.0-10.0); %Neutrophils 72.8 % (42.0-75.0); Mean Corpuscular HGB CONC 32.6 g/dL (32.0-36.0); Mean Corpuscular Hemoglobin 33.1 pg (27.0-31.0); Mean Platelet Volume 5.8 fL (7.4-10.4); Platelet Count 267 thou/uL (130-400); RBC Distribution Width 12.4 % (11.5-14.5); White Blood Cell (WBC) Count 4.1 thou/uL (4.8-10.8)
[2021-05-25 17:03] LABS: ALT (SGPT) 9 U/L (8-55); AST (SGOT) 10 U/L (5-34); Albumin 3.8 g/dL (3.4-4.8); Alkaline Phosphatase 90 U/L (40-110); Anion Gap 14 mmol/L (10-20); BUN (Urea Nitrogen) 32 mg/dL (8.4-25.7); Bilirubin, Total 0.3 mg/dL (0.2-1.2); Calc. Creatinine Clearance 0 mL/min (70-130); Calcium 8.8 mg/dL (7.8-10.44); Carbon Dioxide 21 mmol/L (23-31); Chloride 109 mmol/L (98-107); Globulin 2.8 g/dL (2.4-3.5); Glucose 138 mg/dL (83-110); Potassium 4.3 mmol/L (3.5-5.1); Protein, Total 6.6 g/dL (5.8-8.1); Sodium 140 mmol/L (136-145)
[2021-05-25] MEDS ORDERED: Pantoprazole 40 MG VIAL ONE (19:28)
[2021-05-25 19:39] LABS: INR-International Normal Ratio 1.1; Prothrombin Time 14.2 sec (12.0-14.7)
[2021-05-25 19:40] LABS: PTT 32.1 sec (22.9-36.1)
[2021-05-25 19:47] LABS: Iron Binding Capacity, Total 344 mcg/dL (261-462)
[2021-05-25 19:48] LABS: Iron 25 ug/dL (65-175)
[2021-05-26] MEDS ORDERED: Pantoprazole 40 MG VIAL IVP SCH (00:30)
[2021-05-26] MEDS ORDERED: Ondansetron PF 4 MG/2 ML Vial IVP PRN (00:30)
[2021-05-26] MEDS ORDERED: Acetaminophen 325 MG TAB PO PRN (00:30)
[2021-05-26] MEDS ORDERED: Ondansetron ODT 4 MG TAB SL PRN (00:30)
[2021-05-26 01:21] VITALS: BMI 22.9
[2021-05-26] MEDS ORDERED: Bisacodyl 5 MG TAB PO PRN (03:26)
[2021-05-26] MEDS ORDERED: Senokot S 8.6-50 MG TAB PO PRN (03:26)
[2021-05-26 03:34] LABS: Hemoglobin 6.8 g/dL (14.0-18.0); Platelet Count 192 thou/uL (130-400)
[2021-05-26] MEDS: Sodium Chloride 0.9% 1,000 ML IV SCH (05:15)
[2021-05-26 07:53] LABS: #Eosinphils 0.1 thou/uL (0.0-0.7); #Lymphocytes 0.8 thou/uL (1.20-3.40); #Monocytes 0.4 thou/uL (0.11-0.59); #Neutrophils 2.8 thou/uL (1.40-6.50); %Basophils 0.2 % (0.0-1.0); %Eosinophils 1.5 % (0.0-10.0); %Lymphocytes 19.4 % (21.0-51.0); %Neutrophils 68.9 % (42.0-75.0); Mean Corpuscular HGB CONC 33.9 g/dL (32.0-36.0); Mean Corpuscular Hemoglobin 33.9 pg (27.0-31.0); Mean Platelet Volume 5.8 fL (7.4-10.4); Platelet Count 204 thou/uL (130-400); RBC Distribution Width 13.3 % (11.5-14.5); Red Blood Cell (RBC) Count 2.06 mill/uL (4.70-6.10)
[2021-05-26 08:24] LABS: ALT (SGPT) Less than 7 U/L (8-55); AST (SGOT) 10 U/L (5-34); Albumin 3.2 g/dL (3.4-4.8); Alkaline Phosphatase 76 U/L (40-110); Anion Gap 11 mmol/L (10-20); BUN (Urea Nitrogen) 26 mg/dL (8.4-25.7); Bilirubin, Total 0.6 mg/dL (0.2-1.2); Calc. Creatinine Clearance 40 mL/min (70-130); Calcium 8.6 mg/dL (7.8-10.44); Carbon Dioxide 24 mmol/L (23-31); Chloride 108 mmol/L (98-107); Globulin 2.4 g/dL (2.4-3.5); Glucose 103 mg/dL (83-110); Potassium 4.1 mmol/L (3.5-5.1); Protein, Total 5.6 g/dL (5.8-8.1); Sodium 139 mmol/L (136-145)
[2021-05-26 12:52] LABS: SARS-CoV-2 PCR by NAA Not Detected (NotDetected)
[2021-05-26] MEDS: Pantoprazole 40 MG VIAL IVP SCH (14:24)
[2021-05-27] MEDS: Pantoprazole 40 MG VIAL IVP SCH ×2 (00:10→16:32)
[2021-05-27] MEDS: Sodium Chloride 0.9% 1,000 ML IV SCH ×2 (00:11→22:09)
[2021-05-27] MEDS ORDERED: PROPOFOL 200 MG/20 ML VIAL ONE (14:25)
[2021-05-27] MEDS ORDERED: Lidocaine 1% PF 5 ML VIAL ONE (14:25)
[2021-05-27] MEDS: Tamsulosin HCl 0.4 MG CAP PO SCH (22:10)
[2021-05-27] MEDS: Carvedilol 3.125 MG TAB PO SCH (22:11)
[2021-05-28] MEDS: Pantoprazole 40 MG VIAL IVP SCH ×2 (02:38→14:46)
[2021-05-28 04:44] LABS: #Eosinphils 0.1 thou/uL (0.0-0.7); #Lymphocytes 0.9 thou/uL (1.20-3.40); #Monocytes 0.4 thou/uL (0.11-0.59); #Neutrophils 2.8 thou/uL (1.40-6.50); %Basophils 0.2 % (0.0-1.0); %Eosinophils 1.8 % (0.0-10.0); %Monocytes 10.4 % (0.0-10.0); %Neutrophils 66.6 % (42.0-75.0); Hemoglobin 8.3 g/dL (14.0-18.0); Mean Corpuscular HGB CONC 33.5 g/dL (32.0-36.0); Mean Corpuscular Hemoglobin 32.8 pg (27.0-31.0); Platelet Count 212 thou/uL (130-400); RBC Distribution Width 13.2 % (11.5-14.5); Red Blood Cell (RBC) Count 2.52 mill/uL (4.70-6.10); White Blood Cell (WBC) Count 4.2 thou/uL (4.8-10.8)
[2021-05-28] MEDS: Carvedilol 3.125 MG TAB PO SCH ×2 (09:06→20:31)
[2021-05-28] MEDS: Ferrous Sulfate 325 MG TAB PO SCH (09:06)
[2021-05-28] MEDS: Potassium Chloride 10 MEQ TAB PO SCH (09:06)
[2021-05-28] MEDS ORDERED: Aspirin 325 mg Enteric Coated Tablet PO SCH (14:00)
[2021-05-28] MEDS: Sodium Chloride 0.9% 1,000 ML IV SCH (14:46)
[2021-05-28] MEDS: Tamsulosin HCl 0.4 MG CAP PO SCH (20:30)
[2021-05-29] MEDS: Pantoprazole 40 MG VIAL IVP SCH ×2 (02:58→16:12)
[2021-05-29 04:19] LABS: #Eosinphils 0.1 thou/uL (0.0-0.7); #Lymphocytes 0.5 thou/uL (1.20-3.40); #Monocytes 0.5 thou/uL (0.11-0.59); #Neutrophils 4.6 thou/uL (1.40-6.50); %Basophils 0.1 % (0.0-1.0); %Eosinophils 1.5 % (0.0-10.0); %Lymphocytes 9.3 % (21.0-51.0); %Neutrophils 80.2 % (42.0-75.0); Hemoglobin 8.1 g/dL (14.0-18.0); Mean Corpuscular HGB CONC 32.9 g/dL (32.0-36.0); Mean Corpuscular Hemoglobin 32.2 pg (27.0-31.0); Platelet Count 200 thou/uL (130-400); RBC Distribution Width 13.2 % (11.5-14.5); Red Blood Cell (RBC) Count 2.52 mill/uL (4.70-6.10); White Blood Cell (WBC) Count 5.7 thou/uL (4.8-10.8)
[2021-05-29] MEDS: Potassium Chloride 10 MEQ TAB PO SCH (10:33)
[2021-05-29] MEDS: Ferrous Sulfate 325 MG TAB PO SCH (10:33)
[2021-05-29] MEDS: Carvedilol 3.125 MG TAB PO SCH ×2 (10:33→21:02)
[2021-05-29] MEDS: Aspirin 325 mg Enteric Coated Tablet PO SCH (10:33)
[2021-05-29] MEDS: Sodium Chloride 0.9% 1,000 ML IV SCH (11:06)
[2021-05-29] MEDS: Tamsulosin HCl 0.4 MG CAP PO SCH (21:02)
[2021-05-30] MEDS: Aspirin 325 mg Enteric Coated Tablet PO SCH (10:04)
[2021-05-30] MEDS: Carvedilol 3.125 MG TAB PO SCH ×2 (10:05→20:47)
[2021-05-30] MEDS: Potassium Chloride 10 MEQ TAB PO SCH (10:05)
[2021-05-30] MEDS: Ferrous Sulfate 325 MG TAB PO SCH (10:05)
[2021-05-30] MEDS: Pantoprazole 40 MG VIAL IVP SCH ×2 (10:05→20:48)
[2021-05-30 10:51] LABS: Hemoglobin A1c 4.5 % (4.0-6.0)
[2021-05-30] MEDS: Sodium Chloride 0.9% 1,000 ML IV SCH (11:54)
[2021-05-30] MEDS: Atorvastatin Calcium 40 MG TAB PO SCH (20:47)
[2021-05-30] MEDS: Tamsulosin HCl 0.4 MG CAP PO SCH (20:47)
[2021-05-31 06:25] LABS: #Eosinphils 0.1 thou/uL (0.0-0.7); #Lymphocytes 0.8 thou/uL (1.20-3.40); #Monocytes 0.4 thou/uL (0.11-0.59); #Neutrophils 2.8 thou/uL (1.40-6.50); %Basophils 0.5 % (0.0-1.0); %Eosinophils 3.6 % (0.0-10.0); %Lymphocytes 20.1 % (21.0-51.0); %Monocytes 8.3 % (0.0-10.0); %Neutrophils 67.4 % (42.0-75.0); Hemoglobin 8.5 g/dL (14.0-18.0); Mean Corpuscular HGB CONC 32.8 g/dL (32.0-36.0); Mean Corpuscular Hemoglobin 32.3 pg (27.0-31.0); Mean Corpuscular Volume 98.6 fL (78.0-98.0); Mean Platelet Volume 6.3 fL (7.4-10.4); Platelet Count 204 thou/uL (130-400); RBC Distribution Width 13.2 % (11.5-14.5); Red Blood Cell (RBC) Count 2.64 mill/uL (4.70-6.10); White Blood Cell (WBC) Count 4.2 thou/uL (4.8-10.8)
[2021-05-31 06:38] LABS: Anion Gap 11 mmol/L (10-20); BUN (Urea Nitrogen) 11 mg/dL (8.4-25.7); Calc. Creatinine Clearance 54 mL/min (70-130); Calcium 8.2 mg/dL (7.8-10.44); Carbon Dioxide 22 mmol/L (23-31); Cardiac Risk 4.5 (Less than 4.5); Chloride 111 mmol/L (98-107); Cholesterol 145 mg/dl (< 200 Desired); Glucose 107 mg/dL (83-110); HDL Cholesterol 32 mg/dL (>60 Neg Risk); LDL Cholesterol, Calculated 94 mg/dL; Potassium 3.8 mmol/L (3.5-5.1); Sodium 140 mmol/L (136-145); Triglycerides 97 mg/dL (Less than 150)
[2021-05-31] MEDS: Pantoprazole 40 MG VIAL IVP SCH ×2 (08:55→22:00)
[2021-05-31] MEDS: Sodium Chloride 0.9% 1,000 ML IV SCH ×2 (08:55→23:39)
[2021-05-31] MEDS: Ferrous Sulfate 325 MG TAB PO SCH (08:55)
[2021-05-31] MEDS: Carvedilol 3.125 MG TAB PO SCH ×2 (08:55→22:00)
[2021-05-31] MEDS: Aspirin 325 mg Enteric Coated Tablet PO SCH (08:56)
[2021-05-31] MEDS: Potassium Chloride 10 MEQ TAB PO SCH (08:56)
[2021-05-31] MEDS: Tamsulosin HCl 0.4 MG CAP PO SCH (22:00)
[2021-05-31] MEDS: Atorvastatin Calcium 40 MG TAB PO SCH (22:00)
[2021-06-01 05:20] LABS: #Eosinphils 0.1 thou/uL (0.0-0.7); #Lymphocytes 0.8 thou/uL (1.20-3.40); #Monocytes 0.3 thou/uL (0.11-0.59); #Neutrophils 2.8 thou/uL (1.40-6.50); %Basophils 0.2 % (0.0-1.0); %Eosinophils 3.3 % (0.0-10.0); %Lymphocytes 19.8 % (21.0-51.0); %Monocytes 7.9 % (0.0-10.0); %Neutrophils 68.9 % (42.0-75.0); Hemoglobin 8.4 g/dL (14.0-18.0); Mean Corpuscular Hemoglobin 32.2 pg (27.0-31.0); Mean Corpuscular Volume 97.7 fL (78.0-98.0); Platelet Count 204 thou/uL (130-400); RBC Distribution Width 12.9 % (11.5-14.5); Red Blood Cell (RBC) Count 2.59 mill/uL (4.70-6.10); White Blood Cell (WBC) Count 4.1 thou/uL (4.8-10.8)
[2021-06-01 05:36] LABS: Anion Gap 9 mmol/L (10-20); BUN (Urea Nitrogen) 13 mg/dL (8.4-25.7); Calc. Creatinine Clearance 52 mL/min (70-130); Calcium 8.3 mg/dL (7.8-10.44); Carbon Dioxide 23 mmol/L (23-31); Chloride 109 mmol/L (98-107); Glucose 102 mg/dL (83-110); Potassium 3.9 mmol/L (3.5-5.1); Sodium 137 mmol/L (136-145)
[2021-06-01] MEDS: Pantoprazole 40 MG VIAL IVP SCH (08:14)
[2021-06-01] MEDS: Aspirin 325 mg Enteric Coated Tablet PO SCH (08:15)
[2021-06-01] MEDS: Carvedilol 3.125 MG TAB PO SCH (08:15)
[2021-06-01] MEDS: Ferrous Sulfate 325 MG TAB PO SCH (08:15)
[2021-06-01] MEDS: Potassium Chloride 10 MEQ TAB PO SCH (08:15)
[2021-06-01 15:59] VITALS: BP 127/69; TEMP 98
[2021-06-01 23:33] LABS: SARS-CoV-2 PCR by NAA Not Detected (NotDetected)
== END 2021-06-01 17:05 | DRG 377 ==
LOC: ERS 15:59 → 2NO 20:28 → NEURO 05-29 17:37
PROVIDERS: ADMIT Internal Medicine; ATTEND Internal Medicine
PROC: 30233N1 Transfusion of Nonautologous Red Blood Cells into Peripheral Vein, Percutaneous Approach (ICD-10-PCS; 2021-05-25)
PROC: 0DJ08ZZ Inspection of Upper Intestinal Tract, Via Natural or Artificial Opening Endoscopic (ICD-10-PCS; principal; 2021-05-27)
DX: K25.4 Chronic or unspecified gastric ulcer with hemorrhage (principal); I63.9 Cerebral infarction, unspecified; D62 Acute posthemorrhagic anemia; N17.9 Acute kidney failure, unspecified; I25.10 Atherosclerotic heart disease of native coronary artery without angina pectoris; I10 Essential (primary) hypertension; G89.29 Other chronic pain; D50.9 Iron deficiency anemia, unspecified; K44.9 Diaphragmatic hernia without obstruction or gangrene; K26.4 Chronic or unspecified duodenal ulcer with hemorrhage; N40.0 Benign prostatic hyperplasia without lower urinary tract symptoms; R47.1 Dysarthria and anarthria; Z20.822 Contact with and (suspected) exposure to COVID-19; Z90.49 Acquired absence of other specified parts of digestive tract; Z95.1 Presence of aortocoronary bypass graft; Z95.5 Presence of coronary angioplasty implant and graft; Z98.890 Other specified postprocedural states; Z87.891 Personal history of nicotine dependence; Z86.73 Personal history of transient ischemic attack (TIA), and cerebral infarction without residual deficits; I25.2 Old myocardial infarction; Z88.5 Allergy status to narcotic agent; Z86.711 Personal history of pulmonary embolism; Z79.899 Other long term (current) drug therapy; Z79.01 Long term (current) use of anticoagulants
CPT/HCPCS: 36415; 36430; 70551; 71275; 80048; 80053; 80061; 82274; 82728; 83036; 83540; 83550; 84443; 84484; 85014; 85018; 85025; 85049; 85610; 85730; 86850; 86900; 86901; 93005; 93306; 93880; 93970; 96374; C9113; J2704; J7050; P9016; Q9967; U0003; U0005

== ENCOUNTER 2021-07-27 18:35 | Emergency (ER) | payer MEDICARE, BC ==
[2021-07-27] MEDS ORDERED: Acetaminophen 325 MG TAB ONE (19:22)
[2021-07-27 19:42] LABS: #Lymphocytes 0.5 thou/uL (1.20-3.40); #Monocytes 0.6 thou/uL (0.11-0.59); #Neutrophils 9.5 thou/uL (1.40-6.50); %Basophils 0.2 % (0.0-1.0); %Eosinophils 0.4 % (0.0-10.0); %Neutrophils 88.4 % (42.0-75.0); Hemoglobin 11.8 g/dL (14.0-18.0); Mean Corpuscular HGB CONC 32.7 g/dL (32.0-36.0); Mean Corpuscular Hemoglobin 31.2 pg (27.0-31.0); Mean Corpuscular Volume 95.6 fL (78.0-98.0); Mean Platelet Volume 6.4 fL (7.4-10.4); Platelet Count 214 thou/uL (130-400); RBC Distribution Width 13.3 % (11.5-14.5); Red Blood Cell (RBC) Count 3.79 mill/uL (4.70-6.10); White Blood Cell (WBC) Count 10.8 thou/uL (4.8-10.8)
[2021-07-27 20:04] LABS: ALT (SGPT) 9 U/L (8-55); AST (SGOT) 12 U/L (5-34); Albumin 3.9 g/dL (3.4-4.8); Alkaline Phosphatase 90 U/L (40-110); Anion Gap 11 mmol/L (10-20); BUN (Urea Nitrogen) 27 mg/dL (8.4-25.7); Bilirubin, Total 0.4 mg/dL (0.2-1.2); Calc. Creatinine Clearance 0 mL/min (70-130); Calcium 9.2 mg/dL (7.8-10.44); Carbon Dioxide 27 mmol/L (23-31); Chloride 103 mmol/L (98-107); Globulin 3.2 g/dL (2.4-3.5); Glucose 124 mg/dL (83-110); Potassium 4.3 mmol/L (3.5-5.1); Protein, Total 7.1 g/dL (5.8-8.1); Sodium 137 mmol/L (136-145)
[2021-07-27 20:52] LABS: Bacteria/HPF 3+ HPF (None Seen); Bilirubin Negative (Negative); Blood, Urine Negative (Negative); Clarity Turbid (Clear); Glucose, Urine (Dipstick) Normal (Negative); Ketone, Urine Negative (Negative); Leukocyte 250 Leu/uL (Negative); Nitrite 2+ (Negative); Protein, Urine (Dipstick) Negative (Neg-Trace); RBC/HPF 0-3 HPF (0-3); Specific Gravity, Urine 1.022 (1.002-1.036); Squamous Epithelial 0-3 HPF (0-3); Urobilinogen Normal mg/dL (Less than 2); WBC/HPF 21-50 HPF (0-3); pH, Urine 6.5 (5.0-9.0)
[2021-07-27 21:15] LABS: SARS-CoV-2 NAA Rapid Test Not Detected (NotDetected)
[2021-07-27] MEDS ORDERED: cefTRIAXone\\ROCEPHIN 2 GM VIAL ONE (22:05)
== END 2021-07-28 ==
LOC: ERS 18:35
DX: N39.0 Urinary tract infection, site not specified (principal); Z20.822 Contact with and (suspected) exposure to COVID-19; I25.2 Old myocardial infarction; I10 Essential (primary) hypertension; Z87.891 Personal history of nicotine dependence
CPT/HCPCS: 0240U; 80053; 83605; 85025; 87040; 87077; 87086; 87186; 96374; 99284; 36415; 81003; 81015; J0696

== ENCOUNTER 2022-02-09 07:14 | Inpatient (IN) | payer MEDICARE, BC ==
[2022-02-09 09:02] LABS: #Lymphocytes 0.2 thou/uL (1.20-3.40); #Monocytes 0.6 thou/uL (0.11-0.59); #Neutrophils 8.1 thou/uL (1.40-6.50); %Basophils 0.1 % (0.0-1.0); %Eosinophils 0.1 % (0.0-10.0); %Lymphocytes 2.2 % (21.0-51.0); %Monocytes 6.3 % (0.0-10.0); %Neutrophils 91.2 % (42.0-75.0); Hemoglobin 12.3 g/dL (14.0-18.0); Mean Corpuscular Hemoglobin 32.3 pg (27.0-31.0); Mean Corpuscular Volume 94.8 fl (78.0-98.0); Mean Platelet Volume 6.8 fL (7.4-10.4); Platelet Count 130 10x3/uL (130-400); RBC Distribution Width 11.8 % (11.5-14.5); Red Blood Cell (RBC) Count 3.81 mill/uL (4.70-6.10); White Blood Cell (WBC) Count 8.8 10x3/uL (4.8-10.8)
[2022-02-09 09:18] LABS: Bacteria/HPF 4+ HPF (None Seen); Bilirubin Negative (Negative); Blood, Urine Trace (Negative); Clarity Turbid (Clear); Glucose, Urine (Dipstick) Normal (Negative); Ketone, Urine 10 mg/dL (Negative); Leukocyte 500 Leu/uL (Negative); Nitrite 2+ (Negative); Protein, Urine (Dipstick) 10 mg/dL (Neg-Trace); Specific Gravity, Urine 1.018 (1.002-1.036); Squamous Epithelial 0-3 HPF (0-3); Urobilinogen Normal mg/dL (Less than 2); WBC/HPF Greater than 50 HPF (0-3); pH, Urine 5.5 (5.0-9.0)
[2022-02-09 09:24] LABS: ALT (SGPT) Less than 7 U/L (8-55); AST (SGOT) 13 U/L (5-34); Albumin 3.6 g/dL (3.4-4.8); Alkaline Phosphatase 61 U/L (40-110); Anion Gap 13 mmol/L (10-20); BUN (Urea Nitrogen) 24 mg/dL (8.4-25.7); Bilirubin, Total 0.9 mg/dL (0.2-1.2); Calc. Creatinine Clearance 0 mL/min (70-130); Calcium 8.6 mg/dL (7.8-10.44); Carbon Dioxide 23 mmol/L (23-31); Chloride 104 mmol/L (98-107); Estimated GFR 45; Glucose 127 mg/dL (83-110); Potassium 3.6 mmol/L (3.5-5.1); Protein, Total 6.6 g/dL (5.8-8.1); Sodium 136 mmol/L (136-145)
[2022-02-09] MEDS ORDERED: cefTRIAXone\\ROCEPHIN 2 GM VIAL ONE (09:41)
[2022-02-09 09:42] LABS: CK (CPK) 84 U/L (30-200); Lipase 15 U/L (8-78)
[2022-02-09] MEDS ORDERED: Aspirin Chewable 81 MG TAB ONE (09:43)
[2022-02-09 09:47] LABS: CKMB 0.8 ng/mL (0-6.6)
[2022-02-09 10:56] LABS: SARS-CoV-2 NAA Rapid Test Not Detected (NotDetected)
[2022-02-09] MEDS ORDERED: Ondansetron ODT 4 MG TAB PO PRN (11:38)
[2022-02-09] MEDS ORDERED: Ondansetron PF 4 MG/2 ML Vial IVP PRN (11:38)
[2022-02-09] MEDS ORDERED: Acetaminophen 650 MG Suppository PR PRN (11:38)
[2022-02-09] MEDS ORDERED: Acetaminophen 325 MG TAB PO PRN (11:38)
[2022-02-09] MEDS: Sodium Chloride 0.9% 1,000 ML IV SCH ×2 (12:18→21:48)
[2022-02-09 12:51] LABS: Troponin I 0.076 ng/mL (< 0.028)
[2022-02-09 14:46] LABS: Troponin I 0.078 ng/mL (< 0.028)
[2022-02-09 17:40] VITALS: BMI 26.8
[2022-02-09] MEDS: Tamsulosin HCl 0.4 MG CAP PO SCH (21:48)
[2022-02-10 05:20] LABS: Anion Gap 11 mmol/L (10-20); BUN (Urea Nitrogen) 20 mg/dL (8.4-25.7); Calc. Creatinine Clearance 51 mL/min (70-130); Carbon Dioxide 22 mmol/L (23-31); Chloride 108 mmol/L (98-107); Estimated GFR 58; Glucose 98 mg/dL (83-110); Potassium 3.5 mmol/L (3.5-5.1); Sodium 137 mmol/L (136-145)
[2022-02-10 05:21] LABS: #Lymphocytes 0.4 thou/uL (1.20-3.40); #Monocytes 0.3 thou/uL (0.11-0.59); #Neutrophils 4.5 thou/uL (1.40-6.50); %Eosinophils 0.6 % (0.0-10.0); %Lymphocytes 8.3 % (21.0-51.0); %Neutrophils 85.1 % (42.0-75.0); Hemoglobin 11.2 g/dL (14.0-18.0); Mean Corpuscular HGB CONC 33.9 g/dL (32.0-36.0); Mean Corpuscular Hemoglobin 32.7 pg (27.0-31.0); Mean Corpuscular Volume 96.4 fl (78.0-98.0); Mean Platelet Volume 7.2 fL (7.4-10.4); Platelet Count 124 10x3/uL (130-400); RBC Distribution Width 11.9 % (11.5-14.5); Red Blood Cell (RBC) Count 3.43 mill/uL (4.70-6.10); White Blood Cell (WBC) Count 5.3 10x3/uL (4.8-10.8)
[2022-02-10] MEDS: cefTRIAXone\\ROCEPHIN 1 GM in Sodium Chloride 0.9% 100 ML IVPB SCH (09:25)
[2022-02-10] MEDS: Aspirin 81 mg Enteric Coated Tablet PO SCH (09:25)
[2022-02-10] MEDS: Sodium Chloride 0.9% 1,000 ML IV SCH (09:25)
[2022-02-10] MEDS ORDERED: Senokot 8.6 MG TAB PO PRN (16:35)
[2022-02-10] MEDS: Tamsulosin HCl 0.4 MG CAP PO SCH (22:27)
[2022-02-10] MEDS: Atorvastatin Calcium 40 MG TAB PO SCH (22:27)
[2022-02-11 05:04] LABS: #Eosinphils 0.1 thou/uL (0.0-0.7); #Lymphocytes 0.7 thou/uL (1.20-3.40); #Monocytes 0.6 thou/uL (0.11-0.59); #Neutrophils 3.8 thou/uL (1.40-6.50); %Basophils 0.3 % (0.0-1.0); %Eosinophils 1.5 % (0.0-10.0); %Lymphocytes 12.8 % (21.0-51.0); %Monocytes 11.6 % (0.0-10.0); %Neutrophils 73.9 % (42.0-75.0); Hemoglobin 11.5 g/dL (14.0-18.0); Mean Corpuscular HGB CONC 34.3 g/dL (32.0-36.0); Mean Corpuscular Hemoglobin 32.8 pg (27.0-31.0); Mean Corpuscular Volume 95.6 fl (78.0-98.0); Platelet Count 129 10x3/uL (130-400); RBC Distribution Width 11.7 % (11.5-14.5); Red Blood Cell (RBC) Count 3.49 mill/uL (4.70-6.10); White Blood Cell (WBC) Count 5.1 10x3/uL (4.8-10.8)
[2022-02-11 05:21] LABS: Anion Gap 10 mmol/L (10-20); BUN (Urea Nitrogen) 16 mg/dL (8.4-25.7); Calc. Creatinine Clearance 55 mL/min (70-130); Calcium 8.4 mg/dL (7.8-10.44); Carbon Dioxide 25 mmol/L (23-31); Cardiac Risk 6.3 (Less than 4.5); Chloride 106 mmol/L (98-107); Cholesterol 157 mg/dl (< 200 Desired); Estimated GFR 63; Glucose 110 mg/dL (83-110); HDL Cholesterol 25 mg/dL (>60 Neg Risk); LDL Cholesterol, Calculated 102 mg/dL; Potassium 3.3 mmol/L (3.5-5.1); Sodium 138 mmol/L (136-145); Triglycerides 150 mg/dL (Less than 150)
[2022-02-11] MEDS: Aspirin 81 mg Enteric Coated Tablet PO SCH (09:12)
[2022-02-11] MEDS: Ferrous Sulfate 325 MG TAB PO SCH (09:12)
[2022-02-11] MEDS: Dutasteride 0.5 MG CAP PO SCH (09:12)
[2022-02-11] MEDS: cefTRIAXone\\ROCEPHIN 1 GM in Sodium Chloride 0.9% 100 ML IVPB SCH (09:18)
[2022-02-11] MEDS ORDERED: Meropenem 1 GM in Sodium Chloride 0.9% 100 ML IVPB SCH (14:00)
[2022-02-11] MEDS: Atorvastatin Calcium 40 MG TAB PO SCH (21:42)
[2022-02-11] MEDS: Tamsulosin HCl 0.4 MG CAP PO SCH (21:42)
[2022-02-11] MEDS: Meropenem 1 GM in Sodium Chloride 0.9% 100 ML IVPB SCH (23:41)
[2022-02-12 04:49] LABS: #Eosinphils 0.1 thou/uL (0.0-0.7); #Lymphocytes 0.7 thou/uL (1.20-3.40); #Monocytes 0.5 thou/uL (0.11-0.59); #Neutrophils 3.2 thou/uL (1.40-6.50); %Basophils 0.2 % (0.0-1.0); %Eosinophils 1.8 % (0.0-10.0); %Lymphocytes 15.2 % (21.0-51.0); %Monocytes 11.3 % (0.0-10.0); %Neutrophils 71.5 % (42.0-75.0); Hemoglobin 11.7 g/dL (14.0-18.0); Mean Corpuscular HGB CONC 34.3 g/dL (32.0-36.0); Mean Corpuscular Hemoglobin 32.4 pg (27.0-31.0); Mean Corpuscular Volume 94.3 fl (78.0-98.0); Mean Platelet Volume 6.8 fL (7.4-10.4); Platelet Count 136 10x3/uL (130-400); RBC Distribution Width 11.5 % (11.5-14.5); Red Blood Cell (RBC) Count 3.61 mill/uL (4.70-6.10); White Blood Cell (WBC) Count 4.5 10x3/uL (4.8-10.8)
[2022-02-12 05:07] LABS: Anion Gap 10 mmol/L (10-20); BUN (Urea Nitrogen) 11 mg/dL (8.4-25.7); Calc. Creatinine Clearance 65 mL/min (70-130); Calcium 8.2 mg/dL (7.8-10.44); Carbon Dioxide 24 mmol/L (23-31); Chloride 104 mmol/L (98-107); Estimated GFR 78; Glucose 105 mg/dL (83-110); Potassium 3.3 mmol/L (3.5-5.1); Sodium 135 mmol/L (136-145)
[2022-02-12] MEDS: Meropenem 1 GM in Sodium Chloride 0.9% 100 ML IVPB SCH ×3 (06:12→21:30)
[2022-02-12] MEDS: Aspirin 81 mg Enteric Coated Tablet PO SCH (09:15)
[2022-02-12] MEDS: Ferrous Sulfate 325 MG TAB PO SCH (09:15)
[2022-02-12] MEDS: Dutasteride 0.5 MG CAP PO SCH (09:15)
[2022-02-12] MEDS ORDERED: Potassium Chloride 20 MEQ TAB PO SCH (11:00)
[2022-02-12] MEDS ORDERED: Amlodipine 5 MG TAB PO SCH (18:30)
[2022-02-12] MEDS: Atorvastatin Calcium 40 MG TAB PO SCH (21:30)
[2022-02-12] MEDS: Tamsulosin HCl 0.4 MG CAP PO SCH (21:30)
[2022-02-13 04:54] LABS: #Eosinphils 0.1 thou/uL (0.0-0.7); #Monocytes 0.5 thou/uL (0.11-0.59); %Basophils 0.2 % (0.0-1.0); %Eosinophils 1.6 % (0.0-10.0); %Lymphocytes 21.3 % (21.0-51.0); %Monocytes 11.3 % (0.0-10.0); %Neutrophils 65.6 % (42.0-75.0); Hemoglobin 12.5 g/dL (14.0-18.0); Mean Corpuscular HGB CONC 34.8 g/dL (32.0-36.0); Mean Corpuscular Hemoglobin 32.7 pg (27.0-31.0); Mean Corpuscular Volume 93.8 fl (78.0-98.0); Mean Platelet Volume 6.9 fL (7.4-10.4); Platelet Count 163 10x3/uL (130-400); RBC Distribution Width 11.5 % (11.5-14.5); Red Blood Cell (RBC) Count 3.81 mill/uL (4.70-6.10); White Blood Cell (WBC) Count 4.6 10x3/uL (4.8-10.8)
[2022-02-13 05:29] LABS: Anion Gap 12 mmol/L (10-20); BUN (Urea Nitrogen) 14 mg/dL (8.4-25.7); Calc. Creatinine Clearance 62 mL/min (70-130); Calcium 8.5 mg/dL (7.8-10.44); Carbon Dioxide 23 mmol/L (23-31); Chloride 106 mmol/L (98-107); Estimated GFR 74; Glucose 108 mg/dL (83-110); Potassium 3.9 mmol/L (3.5-5.1); Sodium 137 mmol/L (136-145)
[2022-02-13] MEDS: Meropenem 1 GM in Sodium Chloride 0.9% 100 ML IVPB SCH ×3 (05:47→21:08)
[2022-02-13] MEDS: Aspirin 81 mg Enteric Coated Tablet PO SCH (08:53)
[2022-02-13] MEDS: Amlodipine 5 MG TAB PO SCH (08:53)
[2022-02-13] MEDS: Ferrous Sulfate 325 MG TAB PO SCH (08:53)
[2022-02-13] MEDS: Dutasteride 0.5 MG CAP PO SCH (08:53)
[2022-02-13] MEDS: Atorvastatin Calcium 40 MG TAB PO SCH (21:01)
[2022-02-13] MEDS: Tamsulosin HCl 0.4 MG CAP PO SCH (21:08)
[2022-02-14 05:27] LABS: #Eosinphils 0.2 thou/uL (0.0-0.7); #Lymphocytes 1.3 thou/uL (1.20-3.40); #Monocytes 0.5 thou/uL (0.11-0.59); #Neutrophils 3.1 thou/uL (1.40-6.50); %Eosinophils 3.1 % (0.0-10.0); %Lymphocytes 25.1 % (21.0-51.0); %Monocytes 9.7 % (0.0-10.0); %Neutrophils 62.1 % (42.0-75.0); Hemoglobin 13.2 g/dL (14.0-18.0); Mean Corpuscular HGB CONC 33.9 g/dL (32.0-36.0); Mean Corpuscular Hemoglobin 31.7 pg (27.0-31.0); Mean Corpuscular Volume 93.4 fl (78.0-98.0); Mean Platelet Volume 6.8 fL (7.4-10.4); Platelet Count 190 10x3/uL (130-400); RBC Distribution Width 11.5 % (11.5-14.5); Red Blood Cell (RBC) Count 4.17 mill/uL (4.70-6.10)
[2022-02-14] MEDS: Meropenem 1 GM in Sodium Chloride 0.9% 100 ML IVPB SCH ×3 (05:49→21:33)
[2022-02-14 06:28] LABS: Anion Gap 10 mmol/L (10-20); BUN (Urea Nitrogen) 15 mg/dL (8.4-25.7); Calc. Creatinine Clearance 57 mL/min (70-130); Carbon Dioxide 27 mmol/L (23-31); Chloride 104 mmol/L (98-107); Estimated GFR 69; Glucose 102 mg/dL (83-110); Sodium 137 mmol/L (136-145)
[2022-02-14] MEDS: Aspirin 81 mg Enteric Coated Tablet PO SCH (08:59)
[2022-02-14] MEDS: Ferrous Sulfate 325 MG TAB PO SCH (08:59)
[2022-02-14] MEDS: Dutasteride 0.5 MG CAP PO SCH (08:59)
[2022-02-14] MEDS: Amlodipine 5 MG TAB PO SCH (08:59)
[2022-02-14] MEDS: Tamsulosin HCl 0.4 MG CAP PO SCH (21:26)
[2022-02-14] MEDS: Atorvastatin Calcium 40 MG TAB PO SCH (21:36)
[2022-02-15] MEDS: Meropenem 1 GM in Sodium Chloride 0.9% 100 ML IVPB SCH ×2 (05:53→13:04)
[2022-02-15] MEDS: Dutasteride 0.5 MG CAP PO SCH (09:19)
[2022-02-15] MEDS: Aspirin 81 mg Enteric Coated Tablet PO SCH (09:19)
[2022-02-15] MEDS: Ferrous Sulfate 325 MG TAB PO SCH (09:20)
[2022-02-15] MEDS: Amlodipine 5 MG TAB PO SCH (09:20)
[2022-02-15 19:02] VITALS: BP 109/64; TEMP 98.4
[2022-02-15] MEDS: Tamsulosin HCl 0.4 MG CAP PO SCH (19:47)
[2022-02-15] MEDS: Atorvastatin Calcium 40 MG TAB PO SCH (19:52)
== END 2022-02-15 20:00 | DRG 871 ==
LOC: ERS 07:14 → ERHOLD 10:20 → 2NO 17:17
PROVIDERS: ADMIT Family Medicine; ATTEND Internal Medicine
DX: A41.9 Sepsis, unspecified organism (principal); I21.A1 Myocardial infarction type 2; I69.954 Hemiplegia and hemiparesis following unspecified cerebrovascular disease affecting left non-dominant side; N39.0 Urinary tract infection, site not specified; N17.9 Acute kidney failure, unspecified; E87.1 Hypo-osmolality and hyponatremia; Z20.822 Contact with and (suspected) exposure to COVID-19; N18.2 Chronic kidney disease, stage 2 (mild); I12.9 Hypertensive chronic kidney disease with stage 1 through stage 4 chronic kidney disease, or unspecified chronic kidney disease; I25.10 Atherosclerotic heart disease of native coronary artery without angina pectoris; E87.6 Hypokalemia; I25.2 Old myocardial infarction; Z87.891 Personal history of nicotine dependence; Z95.5 Presence of coronary angioplasty implant and graft; Z95.1 Presence of aortocoronary bypass graft; Z88.5 Allergy status to narcotic agent; Z79.82 Long term (current) use of aspirin
CPT/HCPCS: 36415; 51701; 71045; 80048; 80053; 80061; 81003; 81015; 82550; 82553; 83605; 83690; 83880; 84484; 85025; 86850; 86900; 86901; 87040; 87077; 87086; 87186; 93005; 96365; J0696; J1650; J2185; J3490; J7050

== ENCOUNTER 2022-03-15 08:49 | Inpatient (IN) | payer MEDICARE, BC ==
[2022-03-15 09:42] LABS: #Eosinphils 0.1 thou/uL (0.0-0.7); #Lymphocytes 0.7 thou/uL (1.20-3.40); #Monocytes 0.4 thou/uL (0.11-0.59); #Neutrophils 2.9 thou/uL (1.40-6.50); %Basophils 0.2 % (0.0-1.0); %Eosinophils 2.7 % (0.0-10.0); %Lymphocytes 16.8 % (21.0-51.0); %Monocytes 8.7 % (0.0-10.0); %Neutrophils 71.6 % (42.0-75.0); Hemoglobin 9.1 g/dL (14.0-18.0); Mean Corpuscular HGB CONC 33.3 g/dL (32.0-36.0); Mean Corpuscular Hemoglobin 32.4 pg (27.0-31.0); Mean Corpuscular Volume 97.2 fl (78.0-98.0); Mean Platelet Volume 6.4 fL (7.4-10.4); Platelet Count 206 10x3/uL (130-400); White Blood Cell (WBC) Count 4.1 10x3/uL (4.8-10.8)
[2022-03-15 09:53] LABS: Bilirubin Negative (Negative); Blood, Urine Negative (Negative); Clarity Clear (Clear); Glucose, Urine (Dipstick) Normal (Negative); Ketone, Urine Negative (Negative); Leukocyte Negative Leu/uL (Negative); Nitrite Negative (Negative); Protein, Urine (Dipstick) Negative (Neg-Trace); Specific Gravity, Urine 1.022 (1.002-1.036); Urobilinogen Normal mg/dL (Less than 2)
[2022-03-15 10:02] LABS: ALT (SGPT) 8 U/L (8-55); AST (SGOT) 11 U/L (5-34); Albumin 3.7 g/dL (3.4-4.8); Alkaline Phosphatase 61 U/L (40-110); Anion Gap 13 mmol/L (10-20); BUN (Urea Nitrogen) 26 mg/dL (8.4-25.7); Bilirubin, Total 0.3 mg/dL (0.2-1.2); Calc. Creatinine Clearance 0 mL/min (70-130); Calcium 9.2 mg/dL (7.8-10.44); Carbon Dioxide 24 mmol/L (23-31); Chloride 108 mmol/L (98-107); Estimated GFR 40; Globulin 3.1 g/dL (2.4-3.5); Glucose 109 mg/dL (83-110); Potassium 3.8 mmol/L (3.5-5.1); Protein, Total 6.8 g/dL (5.8-8.1); Sodium 141 mmol/L (136-145)
[2022-03-15 10:41] LABS: SARS-CoV-2 NAA Rapid Test DETECTED (NotDetected)
[2022-03-15] MEDS ORDERED: Acetaminophen 325 MG TAB PO PRN (14:12)
[2022-03-15] MEDS ORDERED: Ondansetron ODT 4 MG TAB PO PRN (14:12)
[2022-03-15] MEDS ORDERED: Ondansetron PF 4 MG/2 ML Vial IVP PRN (14:12)
[2022-03-15] MEDS ORDERED: Benzonatate 100 MG CAP PO PRN (14:15)
[2022-03-15] MEDS ORDERED: Albuterol 200 PUFF (6.7GM INHALER) INH PRN (14:15)
[2022-03-15] MEDS ORDERED: Pantoprazole 40 MG VIAL IVP SCH (14:30)
[2022-03-15] MEDS ORDERED: Pantoprazole 40 MG VIAL ONE (17:36)
[2022-03-15 18:34] LABS: Hemoglobin 8.7 g/dL (14.0-18.0)
[2022-03-15 19:28] VITALS: BMI 24.8
[2022-03-15] MEDS: Atorvastatin Calcium 40 MG TAB PO SCH (21:51)
[2022-03-15] MEDS: Tamsulosin HCl 0.4 MG CAP PO SCH (21:52)
[2022-03-15] MEDS: Pantoprazole 40 MG VIAL IVP SCH (21:52)
[2022-03-16 00:09] LABS: Hemoglobin 8.5 g/dL (14.0-18.0)
[2022-03-16 04:22] LABS: #Eosinphils 0.1 thou/uL (0.0-0.7); #Lymphocytes 0.9 thou/uL (1.20-3.40); #Monocytes 0.3 thou/uL (0.11-0.59); #Neutrophils 2.2 thou/uL (1.40-6.50); %Basophils 0.2 % (0.0-1.0); %Eosinophils 2.8 % (0.0-10.0); %Lymphocytes 25.5 % (21.0-51.0); %Monocytes 8.4 % (0.0-10.0); %Neutrophils 63.1 % (42.0-75.0); Hemoglobin 8.2 g/dL (14.0-18.0); Mean Corpuscular HGB CONC 33.6 g/dL (32.0-36.0); Mean Corpuscular Hemoglobin 32.9 pg (27.0-31.0); Mean Corpuscular Volume 98.1 fl (78.0-98.0); Mean Platelet Volume 6.3 fL (7.4-10.4); Platelet Count 188 10x3/uL (130-400); RBC Distribution Width 13.8 % (11.5-14.5); Red Blood Cell (RBC) Count 2.47 mill/uL (4.70-6.10); White Blood Cell (WBC) Count 3.6 10x3/uL (4.8-10.8)
[2022-03-16 04:43] LABS: Anion Gap 12 mmol/L (10-20); BUN (Urea Nitrogen) 21 mg/dL (8.4-25.7); Calc. Creatinine Clearance 48 mL/min (70-130); Calcium 8.6 mg/dL (7.8-10.44); Carbon Dioxide 24 mmol/L (23-31); Chloride 108 mmol/L (98-107); Estimated GFR 56; Glucose 97 mg/dL (83-110); Iron 22 ug/dL (65-175); Iron Binding Capacity, Total 273 mcg/dL (261-462); Potassium 3.6 mmol/L (3.5-5.1); Sodium 140 mmol/L (136-145)
[2022-03-16] MEDS: Zinc Sulfate 220 MG CAP PO SCH (10:23)
[2022-03-16] MEDS: Ferrous Sulfate 325 MG TAB PO SCH (10:23)
[2022-03-16] MEDS: Amlodipine 5 MG TAB PO SCH (10:23)
[2022-03-16] MEDS: Ascorbic Acid 500 mg Chewable Tablet PO SCH (10:23)
[2022-03-16] MEDS: Pantoprazole 40 MG VIAL IVP SCH ×2 (10:24→20:39)
[2022-03-16] MEDS: Cholecalciferol (Vitamin D3) 400 UNITS TAB PO SCH (10:31)
[2022-03-16] MEDS: Tamsulosin HCl 0.4 MG CAP PO SCH (20:39)
[2022-03-16] MEDS: Atorvastatin Calcium 40 MG TAB PO SCH (20:39)
[2022-03-17 05:05] LABS: #Eosinphils 0.1 thou/uL (0.0-0.7); #Lymphocytes 1.1 thou/uL (1.20-3.40); #Monocytes 0.4 thou/uL (0.11-0.59); %Basophils 0.3 % (0.0-1.0); %Eosinophils 2.1 % (0.0-10.0); %Lymphocytes 23.1 % (21.0-51.0); %Neutrophils 65.5 % (42.0-75.0); Hemoglobin 8.8 g/dL (14.0-18.0); Mean Corpuscular HGB CONC 34.5 g/dL (32.0-36.0); Mean Corpuscular Hemoglobin 33.8 pg (27.0-31.0); Mean Corpuscular Volume 97.9 fl (78.0-98.0); Mean Platelet Volume 6.3 fL (7.4-10.4); Platelet Count 197 10x3/uL (130-400); RBC Distribution Width 13.5 % (11.5-14.5); Red Blood Cell (RBC) Count 2.61 mill/uL (4.70-6.10); White Blood Cell (WBC) Count 4.6 10x3/uL (4.8-10.8)
[2022-03-17 05:18] LABS: Anion Gap 11 mmol/L (10-20); BUN (Urea Nitrogen) 17 mg/dL (8.4-25.7); Calc. Creatinine Clearance 47 mL/min (70-130); Calcium 8.7 mg/dL (7.8-10.44); Carbon Dioxide 23 mmol/L (23-31); Chloride 108 mmol/L (98-107); Estimated GFR 57; Glucose 101 mg/dL (83-110); Potassium 3.8 mmol/L (3.5-5.1); Sodium 138 mmol/L (136-145)
[2022-03-17] MEDS: Ascorbic Acid 500 mg Chewable Tablet PO SCH (08:24)
[2022-03-17] MEDS: Zinc Sulfate 220 MG CAP PO SCH (08:25)
[2022-03-17] MEDS: Ferrous Sulfate 325 MG TAB PO SCH (08:25)
[2022-03-17] MEDS: Amlodipine 5 MG TAB PO SCH (08:25)
[2022-03-17] MEDS: Cholecalciferol (Vitamin D3) 400 UNITS TAB PO SCH (08:25)
[2022-03-17] MEDS: Pantoprazole 40 MG VIAL IVP SCH ×2 (08:26→21:45)
[2022-03-17] MEDS: Polyethylene Glycol 3350 17 GM Packet PO SCH (08:27)
[2022-03-17] MEDS ORDERED: Milk Of Magnesia 30 ML UDCUP PO SCH (11:45)
[2022-03-17] MEDS ORDERED: Heparin 10,000 UNITS/ 10 ML VIAL ONE (12:26)
[2022-03-17] MEDS ORDERED: Lidocaine 1% (PF) 30 ML VIAL ONE (12:26)
[2022-03-17] MEDS ORDERED: Iopamidol 370 76% 50 ML VIAL FS ONE (14:29)
[2022-03-17] MEDS: Atorvastatin Calcium 40 MG TAB PO SCH (21:45)
[2022-03-17] MEDS: Tamsulosin HCl 0.4 MG CAP PO SCH (21:45)
[2022-03-18 06:57] LABS: #Eosinphils 0.1 thou/uL (0.0-0.7); #Lymphocytes 0.8 thou/uL (1.20-3.40); #Monocytes 0.5 thou/uL (0.11-0.59); %Basophils 0.2 % (0.0-1.0); %Eosinophils 1.2 % (0.0-10.0); %Lymphocytes 15.7 % (21.0-51.0); %Monocytes 9.2 % (0.0-10.0); %Neutrophils 73.7 % (42.0-75.0); Hemoglobin 9.8 g/dL (14.0-18.0); Mean Corpuscular HGB CONC 33.3 g/dL (32.0-36.0); Mean Corpuscular Hemoglobin 32.7 pg (27.0-31.0); Mean Corpuscular Volume 98.2 fl (78.0-98.0); Mean Platelet Volume 6.4 fL (7.4-10.4); Platelet Count 203 10x3/uL (130-400); RBC Distribution Width 13.3 % (11.5-14.5); Red Blood Cell (RBC) Count 3.01 mill/uL (4.70-6.10); White Blood Cell (WBC) Count 5.4 10x3/uL (4.8-10.8)
[2022-03-18 07:23] LABS: ALT (SGPT) Less than 7 U/L (8-55); AST (SGOT) 11 U/L (5-34); Albumin 3.4 g/dL (3.4-4.8); Alkaline Phosphatase 61 U/L (40-110); Anion Gap 13 mmol/L (10-20); BUN (Urea Nitrogen) 12 mg/dL (8.4-25.7); Bilirubin, Total 0.7 mg/dL (0.2-1.2); Calc. Creatinine Clearance 53 mL/min (70-130); Carbon Dioxide 21 mmol/L (23-31); Chloride 107 mmol/L (98-107); Estimated GFR 65; Globulin 2.7 g/dL (2.4-3.5); Glucose 113 mg/dL (83-110); Potassium 3.6 mmol/L (3.5-5.1); Protein, Total 6.1 g/dL (5.8-8.1); Sodium 137 mmol/L (136-145)
[2022-03-18] MEDS: Zinc Sulfate 220 MG CAP PO SCH (08:49)
[2022-03-18] MEDS: Ascorbic Acid 500 mg Chewable Tablet PO SCH (08:49)
[2022-03-18] MEDS: Amlodipine 5 MG TAB PO SCH (08:49)
[2022-03-18] MEDS: Polyethylene Glycol 3350 17 GM Packet PO SCH (08:49)
[2022-03-18] MEDS: Ferrous Sulfate 325 MG TAB PO SCH (08:49)
[2022-03-18] MEDS: Cholecalciferol (Vitamin D3) 400 UNITS TAB PO SCH (08:49)
[2022-03-18] MEDS ORDERED: Iron, Sodium Ferric Gluconate 250 MG in Sodium Chloride 0.9% 250 ML 250 ML IVPB SCH (10:45)
[2022-03-18] MEDS: Atorvastatin Calcium 40 MG TAB PO SCH (19:51)
[2022-03-18] MEDS: Tamsulosin HCl 0.4 MG CAP PO SCH (19:51)
[2022-03-19] MEDS: Polyethylene Glycol 3350 17 GM Packet PO SCH (08:34)
[2022-03-19] MEDS: Amlodipine 5 MG TAB PO SCH (08:34)
[2022-03-19] MEDS: Zinc Sulfate 220 MG CAP PO SCH (08:34)
[2022-03-19] MEDS: Ferrous Sulfate 325 MG TAB PO SCH (08:34)
[2022-03-19] MEDS: Ascorbic Acid 500 mg Chewable Tablet PO SCH (08:34)
[2022-03-19] MEDS: Cholecalciferol (Vitamin D3) 400 UNITS TAB PO SCH (08:34)
[2022-03-19 14:54] VITALS: BP 116/78; TEMP 98.1
== END 2022-03-19 14:59 | DRG 811 ==
LOC: ERS 08:49 → ERHOLD 11:20 → 2NO 18:21 → OBSVTOIN 03-16 14:44 → T4-B 03-18 00:19
PROVIDERS: ADMIT Internal Medicine; ATTEND Internal Medicine
PROC: 8E0ZXY6 Isolation (ICD-10-PCS; 2022-03-16)
PROC: 06H03DZ Insertion of Intraluminal Device into Inferior Vena Cava, Percutaneous Approach (ICD-10-PCS; principal; 2022-03-17)
DX: D50.0 Iron deficiency anemia secondary to blood loss (chronic) (principal); U07.1 COVID-19; I69.354 Hemiplegia and hemiparesis following cerebral infarction affecting left non-dominant side; I82.441 Acute embolism and thrombosis of right tibial vein; N18.30 Chronic kidney disease, stage 3 unspecified; E78.5 Hyperlipidemia, unspecified; I25.10 Atherosclerotic heart disease of native coronary artery without angina pectoris; N40.0 Benign prostatic hyperplasia without lower urinary tract symptoms; I12.9 Hypertensive chronic kidney disease with stage 1 through stage 4 chronic kidney disease, or unspecified chronic kidney disease; D63.1 Anemia in chronic kidney disease; Z86.711 Personal history of pulmonary embolism; Z88.5 Allergy status to narcotic agent; Z95.1 Presence of aortocoronary bypass graft; Z79.899 Other long term (current) drug therapy; Z79.82 Long term (current) use of aspirin; I25.2 Old myocardial infarction; Z90.49 Acquired absence of other specified parts of digestive tract; Z98.890 Other specified postprocedural states; Z87.891 Personal history of nicotine dependence
CPT/HCPCS: 36415; 37191; 71045; 74018; 80048; 80053; 81003; 82274; 82728; 83540; 83550; 83605; 84443; 84484; 85025; 86140; 86850; 86900; 86901; 93005; 93970; 96374; 96376; C1769; C1880; C1894; C9113; G0378; J1644; J2001; J2916; J7050; Q9967

== ENCOUNTER 2022-11-17 16:45 | Emergency (ER) | payer MEDICARE, BC ==
[2022-11-17 17:11] LABS: #Eosinphils 0.1 thou/uL (0.0-0.7); #Monocytes 0.7 thou/uL (0.11-0.59); #Neutrophils 7.1 thou/uL (1.40-6.50); %Basophils 0.3 % (0.0-1.0); %Eosinophils 1.4 % (0.0-10.0); %Lymphocytes 9.1 % (21.0-51.0); %Neutrophils 80.5 % (42.0-75.0); Hematocrit 37.5 % (42.0-52.0); Hemoglobin 12.5 g/dL (14.0-18.0); Mean Corpuscular HGB CONC 33.3 g/dL (32.0-36.0); Mean Corpuscular Hemoglobin 30.7 pg (27.0-31.0); Mean Corpuscular Volume 92.1 fl (78.0-98.0); Mean Platelet Volume 9.1 fL (7.4-10.4); Platelet Count 163 10x3/uL (130-400); RBC Distribution Width 15.8 % (11.5-14.5); Red Blood Cell (RBC) Count 4.07 mill/uL (4.70-6.10); White Blood Cell (WBC) Count 8.9 10x3/uL (4.8-10.8)
[2022-11-17 17:35] LABS: ALT (SGPT) 11 U/L (8-55); AST (SGOT) 12 U/L (5-34); Albumin 4.4 g/dL (3.4-4.8); Alkaline Phosphatase 71 U/L (40-110); Anion Gap 13 mmol/L (10-20); BUN (Urea Nitrogen) 24 mg/dL (8.4-25.7); Bilirubin, Total 0.6 mg/dL (0.2-1.2); Calc. Creatinine Clearance 0 mL/min (70-130); Calcium 9.5 mg/dL (7.8-10.44); Carbon Dioxide 26 mmol/L (23-31); Chloride 106 mmol/L (98-107); Estimated GFR 41; Globulin 2.5 g/dL (2.4-3.5); Glucose 95 mg/dL (83-110); Potassium 4.5 mmol/L (3.5-5.1); Protein, Total 6.9 g/dL (5.8-8.1); Sodium 140 mmol/L (136-145)
[2022-11-17 17:39] LABS: Troponin I Less than 0.010 ng/mL (< 0.028)
[2022-11-17 17:52] LABS: Magnesium 1.9 mg/dL (1.6-2.6)
[2022-11-17 20:21] LABS: Bilirubin Negative (Negative); Blood, Urine Negative (Negative); CAUTI Indications for Culture Dysuria,urgency,freq; Clarity Turbid (Clear); Glucose, Urine (Dipstick) Normal (Negative); Ketone, Urine Trace mg/dL (Negative); Leukocyte 25 Leu/uL (Negative); Nitrite Negative (Negative); Protein, Urine (Dipstick) Negative (Neg-Trace); RBC/HPF 0-3 HPF (0-3); Specific Gravity, Urine 1.018 (1.002-1.036); Squamous Epithelial 0-3 HPF (0-3); Urobilinogen Normal mg/dL (Less than 2)
[2022-11-17 20:23] LABS: Bacteria/HPF 1+ HPF (None Seen)
[2022-11-17 20:25] LABS: Urine Culture Reflex No No
== END 2022-11-17 20:59 | disposition home or self-care (01) ==
LOC: ERS 16:45
DX: R53.1 Weakness (principal); N39.0 Urinary tract infection, site not specified; I10 Essential (primary) hypertension; E78.00 Pure hypercholesterolemia, unspecified; Z87.891 Personal history of nicotine dependence; Z79.82 Long term (current) use of aspirin; Z79.899 Other long term (current) drug therapy
CPT/HCPCS: 36415; 51701; 71045; 80053; 81001; 83605; 83735; 84484; 85025; 93005

== ENCOUNTER 2023-02-27 12:42 | Inpatient (IN) | payer BC, MEDICARE ==
[~2023-02-27 12:42] MED LIST changes: -Iopamidol 370 76% 50 ML VIAL FS ONE; -Iopamidol-370 76% 500 ML 1 ML ONE; +Iopamidol-370 76% 500 ML MDV (1 ML CHARGE) ONE
[2023-02-27] MEDS ORDERED: LevoFLOXacin 750 mg/D5W 150 ml Premix Bag ONE (13:10)
[2023-02-27] MEDS ORDERED: methylPREDNISolone Sod Succ/PF 125 MG/2 ML VIAL ONE (13:10)
[2023-02-27] MEDS ORDERED: Albuterol 2.5 MG (3 mL) NEB ONE (13:34)
[2023-02-27] MEDS ORDERED: Ipratropium Bromide 2.5 ml Neb ONE (13:35)
[2023-02-27 13:41] LABS: #Eosinphils 0.1 thou/uL (0.0-0.7); #Monocytes 0.5 thou/uL (0.11-0.59); #Neutrophils 3.2 thou/uL (1.40-6.50); %Basophils 0.4 % (0.0-1.0); %Eosinophils 1.7 % (0.0-10.0); %Lymphocytes 26.2 % (21.0-51.0); %Monocytes 10.3 % (0.0-10.0); Hematocrit 32.6 % (42.0-52.0); Hemoglobin 10.1 g/dL (14.0-18.0); Mean Corpuscular Volume 103.2 fl (78.0-98.0); Mean Platelet Volume 8.8 fL (7.4-10.4); Platelet Count 171 10x3/uL (130-400); RBC Distribution Width 12.5 % (11.5-14.5); Red Blood Cell (RBC) Count 3.16 mill/uL (4.70-6.10); White Blood Cell (WBC) Count 5.2 10x3/uL (4.8-10.8)
[2023-02-27 13:44] LABS: Actual Bicarbonate (HCO3v) 23.1 mEq/L (22-28); Base Excess -3.3 mEq/L (-2.0 to +3.0); Calcium, Ionized (venous) 1.14 mmol/L (1.16-1.32); Chloride (VBG) 104 mmol/L (98-106); Hematocrit-VBG 33 % (42.0-52.0); Hemoglobin (Hb) 11.2 g/dL (12.6-17.4); Potassium (VBG) 3.84 mmol/L (3.70-5.30); Sodium 139 mmol/L (133-146); pH (venous) 7.308 (7.32-7.43)
[2023-02-27 13:49] LABS: SARS-CoV-2 NAA Rapid Test Not Detected (NotDetected)
[2023-02-27 13:55] LABS: INR-International Normal Ratio 1.1; PTT 30.5 sec (22.9-36.1); Prothrombin Time 14.4 sec (12.0-14.7)
[2023-02-27 14:24] LABS: ALT (SGPT) 14 U/L (8-55); AST (SGOT) 14 U/L (5-34); Alkaline Phosphatase 69 U/L (40-110); Anion Gap 12 mmol/L (10-20); BUN (Urea Nitrogen) 19 mg/dL (8.4-25.7); Bilirubin, Total 0.6 mg/dL (0.2-1.2); Calc. Creatinine Clearance 0 mL/min (70-130); Calcium 8.7 mg/dL (7.8-10.44); Carbon Dioxide 25 mmol/L (23-31); Chloride 105 mmol/L (98-107); Estimated GFR 45; Globulin 2.7 g/dL (2.4-3.5); Glucose 158 mg/dL (83-110); Potassium 3.7 mmol/L (3.5-5.1); Protein, Total 6.7 g/dL (5.8-8.1); Sodium 138 mmol/L (136-145)
[2023-02-27] MEDS ORDERED: Aspirin Chewable 81 MG TAB ONE (17:16)
[2023-02-27 17:25] LABS: Lactic Acid 3.8 mmol/L (0.5-2.2)
[2023-02-27 17:28] LABS: Troponin I 0.012 ng/mL (< 0.028)
[2023-02-27] MEDS ORDERED: Albuterol 2.5 MG (3 mL) NEB NEB PRN (17:42)
[2023-02-27] MEDS: Lactated Ringer's 1,000 ML IV SCH (20:57)
[2023-02-27 20:58] LABS: Critical Call Chem-Lactate NUR.MB20; Lactic Acid 6.8 mmol/L (0.5-2.2)
[2023-02-27 21:03] LABS: Troponin I 0.075 ng/mL (< 0.028)
[2023-02-27] MEDS ORDERED: Ipratropium/Albuterol 3 ML NEB EZPAP PRN (21:24)
[2023-02-27] MEDS ORDERED: Ipratropium/Albuterol 3 ML NEB ONE (21:33)
[2023-02-27] MEDS ORDERED: Polyethylene Glycol 3350 17 GM Packet PO PRN (21:42)
[2023-02-27 23:51] LABS: Critical Call Chem-Lactate NUR.NKE @2350
[2023-02-28] MEDS ORDERED: Ipratropium/Albuterol 3 ML NEB ONE ×2 (00:16→08:46)
[2023-02-28] MEDS: Ipratropium/Albuterol 3 ML NEB EZPAP SCH ×5 (00:21→22:18)
[2023-02-28 04:27] LABS: #Monocytes 0.2 thou/uL (0.11-0.59); %Lymphocytes 4.1 % (21.0-51.0); %Monocytes 3.7 % (0.0-10.0); %Neutrophils 91.5 % (42.0-75.0); Hematocrit 26.8 % (42.0-52.0); Hemoglobin 8.5 g/dL (14.0-18.0); Mean Corpuscular HGB CONC 31.7 g/dL (32.0-36.0); Mean Corpuscular Hemoglobin 32.4 pg (27.0-31.0); Mean Corpuscular Volume 102.3 fl (78.0-98.0); Mean Platelet Volume 8.9 fL (7.4-10.4); Platelet Count 154 10x3/uL (130-400); RBC Distribution Width 12.4 % (11.5-14.5); Red Blood Cell (RBC) Count 2.62 mill/uL (4.70-6.10); White Blood Cell (WBC) Count 4.3 10x3/uL (4.8-10.8)
[2023-02-28 04:45] LABS: Lactic Acid 3.1 mmol/L (0.5-2.2)
[2023-02-28 04:52] LABS: Anion Gap 12 mmol/L (10-20); BUN (Urea Nitrogen) 32 mg/dL (8.4-25.7); Calc. Creatinine Clearance 0 mL/min (70-130); Calcium 8.1 mg/dL (7.8-10.44); Carbon Dioxide 21 mmol/L (23-31); Chloride 107 mmol/L (98-107); Estimated GFR 48; Glucose 219 mg/dL (83-110); Potassium 4.4 mmol/L (3.5-5.1); Sodium 136 mmol/L (136-145)
[2023-02-28] MEDS ORDERED: LevoFLOXacin 250 MG TAB ONE (06:18)
[2023-02-28] MEDS ORDERED: LevoFLOXacin 500 MG TAB ONE (06:18)
[2023-02-28] MEDS: LevoFLOXacin 750 MG TAB PO SCH (06:30)
[2023-02-28] MEDS ORDERED: Enoxaparin 40 MG (0.4 mL) SYRINGE ONE (08:25)
[2023-02-28] MEDS: Enoxaparin 40 MG (0.4 mL) SYRINGE SC SCH (09:00)
[2023-02-28] MEDS ORDERED: Amlodipine 5 MG TAB PO SCH (09:00)
[2023-02-28] MEDS ORDERED: Ranolazine 500 MG ER.TAB PO SCH (09:15)
[2023-02-28] MEDS: Dutasteride 0.5 MG CAP PO SCH (10:38)
[2023-02-28 12:19] LABS: Troponin I 1.226 ng/mL (< 0.028)
[2023-02-28] MEDS: Ranolazine 500 MG ER.TAB PO SCH (20:18)
[2023-03-01] MEDS: LevoFLOXacin 750 MG TAB PO SCH (06:08)
[2023-03-01 06:21] LABS: #Monocytes 0.5 thou/uL (0.11-0.59); %Basophils 0.2 % (0.0-1.0); %Eosinophils 0.5 % (0.0-10.0); %Lymphocytes 12.6 % (21.0-51.0); %Monocytes 7.7 % (0.0-10.0); %Neutrophils 78.5 % (42.0-75.0); Hematocrit 26.9 % (42.0-52.0); Hemoglobin 8.4 g/dL (14.0-18.0); Mean Corpuscular HGB CONC 31.2 g/dL (32.0-36.0); Mean Corpuscular Hemoglobin 31.3 pg (27.0-31.0); Mean Corpuscular Volume 100.4 fl (78.0-98.0); Mean Platelet Volume 9.1 fL (7.4-10.4); Platelet Count 169 10x3/uL (130-400); RBC Distribution Width 12.6 % (11.5-14.5); Red Blood Cell (RBC) Count 2.68 mill/uL (4.70-6.10); White Blood Cell (WBC) Count 6.4 10x3/uL (4.8-10.8)
[2023-03-01 06:36] LABS: Anion Gap 12 mmol/L (10-20); BUN (Urea Nitrogen) 28 mg/dL (8.4-25.7); Calc. Creatinine Clearance 49 mL/min (70-130); Calcium 8.2 mg/dL (7.8-10.44); Carbon Dioxide 24 mmol/L (23-31); Chloride 107 mmol/L (98-107); Estimated GFR 59; Glucose 98 mg/dL (83-110); Potassium 4.1 mmol/L (3.5-5.1); Sodium 139 mmol/L (136-145)
[2023-03-01] MEDS: Ipratropium/Albuterol 3 ML NEB EZPAP SCH (07:05)
[2023-03-01] MEDS ORDERED: Aspirin 81 mg Enteric Coated Tablet PO SCH (09:00)
[2023-03-01] MEDS: Enoxaparin 40 MG (0.4 mL) SYRINGE SC SCH (09:02)
[2023-03-01] MEDS: Ranolazine 500 MG ER.TAB PO SCH (09:02)
[2023-03-01] MEDS: Dutasteride 0.5 MG CAP PO SCH (09:03)
[2023-03-01] MEDS ORDERED: Lactated Ringer's 500 ML IV SCH (09:15)
[2023-03-01] MEDS: Lactated Ringer's 1,000 ML IV SCH (11:35)
[2023-03-01 13:00] LABS: Bacteria/HPF 3+ HPF (None Seen); Bilirubin Negative (Negative); Blood, Urine Negative (Negative); Clarity Clear (Clear); Glucose, Urine (Dipstick) Normal (Negative); Ketone, Urine Negative (Negative); Leukocyte 500 Leu/uL (Negative); Nitrite Negative (Negative); Protein, Urine (Dipstick) Negative (Neg-Trace); RBC/HPF 0-3 HPF (0-3); Specific Gravity, Urine 1.015 (1.002-1.036); Squamous Epithelial 0-3 HPF (0-3); Urobilinogen Normal mg/dL (Less than 2); WBC/HPF 21-50 HPF (0-3)
[2023-03-01 13:47] VITALS: TEMP 98.6
[2023-03-01 15:10] VITALS: BP 123/61
== END 2023-03-01 17:24 | disposition home or self-care (01) | DRG 871 ==
LOC: ERS 12:42 → 2NO 16:35 → ERHOLD 16:42 → 2NO 02-28 15:39 → OBSVTOIN 03-01 09:15
PROVIDERS: ADMIT Hospitalist; ATTEND Family Medicine
PROC: 4A043R1 Measurement of Venous Saturation, Peripheral, Percutaneous Approach (ICD-10-PCS; principal; 2023-02-27)
DX: A41.9 Sepsis, unspecified organism (principal); J18.9 Pneumonia, unspecified organism; J96.01 Acute respiratory failure with hypoxia; N17.9 Acute kidney failure, unspecified; I69.954 Hemiplegia and hemiparesis following unspecified cerebrovascular disease affecting left non-dominant side; R65.20 Severe sepsis without septic shock; G47.33 Obstructive sleep apnea (adult) (pediatric); Z11.52 Encounter for screening for COVID-19; N18.30 Chronic kidney disease, stage 3 unspecified; I12.9 Hypertensive chronic kidney disease with stage 1 through stage 4 chronic kidney disease, or unspecified chronic kidney disease; F03.90 Unspecified dementia, unspecified severity, without behavioral disturbance, psychotic disturbance, mood disturbance, and anxiety; N40.0 Benign prostatic hyperplasia without lower urinary tract symptoms; D63.1 Anemia in chronic kidney disease; I25.10 Atherosclerotic heart disease of native coronary artery without angina pectoris; E78.5 Hyperlipidemia, unspecified; Z79.82 Long term (current) use of aspirin; Z79.899 Other long term (current) drug therapy; Z90.49 Acquired absence of other specified parts of digestive tract; Z98.890 Other specified postprocedural states
CPT/HCPCS: 36415; 71045; 71275; 80048; 80053; 81001; 82805; 83605; 83880; 84439; 84443; 84484; 85025; 85610; 85730; 87040; 93005; 93306; 94640; 94760; 96365; 96374; G0378; J1650; J1956; J2930; J7120; J7611; J7620; Q9967

== ENCOUNTER 2023-03-04 14:19 | Emergency (ER) | payer MEDICARE ==
[2023-03-04 14:59] LABS: #Eosinphils 0.1 thou/uL (0.0-0.7); #Monocytes 0.5 thou/uL (0.11-0.59); %Basophils 0.4 % (0.0-1.0); %Eosinophils 1.3 % (0.0-10.0); %Lymphocytes 13.7 % (21.0-51.0); %Monocytes 9.3 % (0.0-10.0); %Neutrophils 73.7 % (42.0-75.0); Hematocrit 33.7 % (42.0-52.0); Hemoglobin 10.9 g/dL (14.0-18.0); Mean Corpuscular HGB CONC 32.3 g/dL (32.0-36.0); Mean Corpuscular Hemoglobin 31.5 pg (27.0-31.0); Mean Corpuscular Volume 97.4 fl (78.0-98.0); Mean Platelet Volume 8.8 fL (7.4-10.4); Platelet Count 218 10x3/uL (130-400); RBC Distribution Width 12.2 % (11.5-14.5); Red Blood Cell (RBC) Count 3.46 mill/uL (4.70-6.10); White Blood Cell (WBC) Count 5.5 10x3/uL (4.8-10.8)
[2023-03-04 15:34] LABS: ALT (SGPT) 17 U/L (8-55); AST (SGOT) 31 U/L (5-34); Albumin 3.7 g/dL (3.4-4.8); Alkaline Phosphatase 73 U/L (40-110); Anion Gap 16 mmol/L (10-20); BUN (Urea Nitrogen) 22 mg/dL (8.4-25.7); Bilirubin, Total 0.4 mg/dL (0.2-1.2); Calc. Creatinine Clearance 0 mL/min (70-130); Calcium 8.9 mg/dL (7.8-10.44); Carbon Dioxide 23 mmol/L (23-31); Chloride 105 mmol/L (98-107); Estimated GFR 42; Globulin 3.8 g/dL (2.4-3.5); Glucose 111 mg/dL (83-110); Potassium 5.1 mmol/L (3.5-5.1); Protein, Total 7.5 g/dL (5.8-8.1); Sodium 139 mmol/L (136-145)
[2023-03-04 15:51] LABS: Critical Call Chem Troponin I ERS.JAN @1551; Troponin I 0.372 ng/mL (< 0.028)
[2023-03-04 17:28] LABS: Bacteria/HPF 4+ HPF (None Seen); Bilirubin Negative (Negative); Blood, Urine Negative (Negative); CAUTI Indications for Culture Pelvic or flank pain; Clarity Turbid (Clear); Glucose, Urine (Dipstick) Normal (Negative); Ketone, Urine Negative (Negative); Leukocyte 500 Leu/uL (Negative); Nitrite 2+ (Negative); Protein, Urine (Dipstick) 10 mg/dL (Neg-Trace); RBC/HPF None Seen HPF (0-3); Specific Gravity, Urine 1.023 (1.002-1.036); Squamous Epithelial 0-3 HPF (0-3); Urobilinogen Normal mg/dL (Less than 2); WBC/HPF Greater than 50 HPF (0-3)
[2023-03-04 17:33] LABS: Urine Culture Reflex Yes Yes
[2023-03-04] MEDS ORDERED: Sulfameth/Trimethoprim DS 800-160mg TAB ONE ×2 (20:30→20:31)
== END 2023-03-04 21:16 | disposition home or self-care (01) ==
LOC: ERS 14:19
DX: N39.0 Urinary tract infection, site not specified (principal); R53.1 Weakness; E78.00 Pure hypercholesterolemia, unspecified; Z87.891 Personal history of nicotine dependence
CPT/HCPCS: 71045; 80053; 81001; 83880; 84484; 85025; 87077; 87086; 87186; 93005